=== PATIENT | female | born 1950 | race Caucasian/White ===

== ENCOUNTER 2016-04-03 10:46 | Emergency (ER) | payer MEDICARE ==
[2016-04-03] MEDS ORDERED: SODIUM CHLORIDE 0.9% 1,000 ML IV STA (11:12)
--- NOTE | 2016-04-03 11:44 | ED ---
Weakness HPI - General Chief complaint: Weakness Stated complaint: weakness Time Seen by Provider: 04/03/16 11:12 Source: patient, family, RN notes reviewed Mode of arrival: EMS Limitations: no limitations - History of Present Illness Initial comments: 65-year-old female presents emergency Department chief complaint weakness. Patient states she just feels very tired, run down. Patient states last time she felt like this that she had a low hemoglobin. Patient states that she was transfused 2 units in January. Patient states that she has completed her treatment for cancer which included chemo and radiation. Patient denies fever, chills, nausea, vomiting, chest pain or shortness of breath. Patient did have some diarrhea last week though she states it resolved. Patient denies headache or dizziness. - Related Data Home Medications Medication Instructions Recorded Confirmed Budesonide/Formoterol Fumarate 2 puff INHALATION RT-BID 10/14/15 04/03/16 [Symbicort 160-4.5 Mcg Inhaler] ALPRAZolam 0.125 - 0.25 mg PO BID PRN 11/04/15 04/03/16 Prochlorperazine [Compazine] 10 mg PO Q8H PRN 01/24/16 04/03/16 Metoprolol Tartrate [Lopressor] 50 mg PO BID 04/03/16 04/03/16 Tiotropium [place] [Spiriva 2 puff INHALATION RT-DAILY 04/03/16 04/03/16 Respimat] Previous Rx's Medication Instructions Recorded Digoxin [Lanoxin] 125 mcg PO DAILY #30 tab 11/06/15 Rivaroxaban [Xarelto] 20 mg PO DAILY #30 tab 11/06/15 Allergies Allergy/AdvReac Type Severity Reaction Status Date / Time Penicillins Allergy Unknown Verified 04/03/16 11:56 codeine AdvReac Nausea & Verified 04/03/16 11:56 Vomiting Review of Systems ROS Statement: Those systems with pertinent positive or pertinent negative responses have been documented in the HPI. ROS Other: All systems not noted in ROS Statement are negative. 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 History of Any Multi-Drug Resistant Organisms: C-DIFF, MRSA Date of last positivie culture/infection: 01/24/2016 MDRO Source:: stool Past Surgical History: Tubal Ligation Additional Past Surgical History / Comment(s): Cancerous polyps removed from throat 11/02/2015, PICC line insertion (since removed) to tx MRSA infection, mediport, colonoscopy with benign polypectomies. Past Anesthesia/Blood Transfusion Reactions: No Reported Reaction Past Psychological History: Anxiety Additional Psychological History / Comment(s): Pt resides with her spouse. She is independent. She normally drives but not lately due to illness. Smoking Status: Former smoker Past Alcohol Use History: Occasional Additional Past Alcohol Use History / Comment(s): started smoking at age 19, was smoking 1/2-1. She quit smoking 10/14/15. Past Drug Use History: None Reported - Past Family History Father Family Medical History: Cancer Additional Family Medical History / Comment(s): bladder cancer Mother Family Medical History: Congestive Heart Failure (CHF) General Exam Limitations: no limitations General appearance: alert, in no apparent distress Head exam: Present: atraumatic, normocephalic, normal inspection Eye exam: Present: normal appearance, PERRL, EOMI. Absent: scleral icterus, conjunctival injection, periorbital swelling ENT exam: Present: normal exam, mucous membranes moist Neck exam: Present: normal inspection. Absent: tenderness, meningismus, lymphadenopathy Respiratory exam: Present: normal lung sounds bilaterally. Absent: respiratory distress, wheezes, rales, rhonchi, stridor Cardiovascular Exam: Present: regular rate, normal rhythm, normal heart sounds. Absent: systolic murmur, diastolic murmur, rubs, gallop, clicks Neurological exam: Present: alert, oriented X3, CN II-XII intact Skin exam: Present: warm, dry, intact, normal color. Absent: rash Course Vital Signs 04/03/16 04/03/16 11:02 14:39 Temperature 97.0 F L Pulse Rate 90 76 Respiratory 20 16 Rate Blood Pressure 98/55 110/59 O2 Sat by Pulse 99 97 Oximetry EKG Findings - EKG Comments: EKG Findings:: EKG performed at 11:33 normal sinus rhythm with a rate of 76, RI interval 112, QRS duration 70 QT/QTC 308/346 Medical Decision Making - Medical Decision Making 65-year-old female presented for weakness and thoughts of hemoglobin being low. Patient was on 0.5. Lab work essentially unremarkable. Chest x-ray within normal limits. EKG unchanged. Patient urinalysis does not show any signs of infection. Patient has no signs of abnormality at this time. I did explained that she needs to contact her oncologist. Case discussed with Dr. Ramirez. Return parameters were discussed. - Lab Data Result diagrams: 04/03/16 12:12 04/03/16 12:12 Lab Results 04/03/16 04/03/16 04/03/16 Range/Units 12:12 12:12 12:12 WBC 5.6 (3.8-10.6) k/uL RBC 3.07 L (3.80-5.40) m/uL Hgb 9.5 L (11.4-16.0) gm/dL Hct 29.3 L (34.0-46.0) % MCV 95.4 D (80.0-100.0) fL MCH 31.0 (25.0-35.0) pg MCHC 32.4 (31.0-37.0) g/dL RDW 14.5 (11.5-15.5) % Plt Count 295 D (150-450) k/uL Neutrophils % 84 % Lymphocytes % 6 % Monocytes % 5 % Eosinophils % 3 % Basophils % 0 % Neutrophils # 4.7 (1.3-7.7) k/uL Lymphocytes # 0.4 L (1.0-4.8) k/uL Monocytes # 0.3 (0-1.0) k/uL Eosinophils # 0.2 (0-0.7) k/uL Basophils # 0.0 (0-0.2) k/uL Hypochromasia Slight PT 13.5 H (9.0-12.0) sec INR 1.4 (<1.1) APTT 29.4 (22.0-30.0) sec Sodium (137-145) mmol/L Potassium (3.5-5.1) mmol/L Chloride (98-107) mmol/L Carbon Dioxide (22-30) mmol/L Anion Gap mmol/L BUN (7-17) mg/dL Creatinine (0.52-1.04) mg/dL Est GFR (MDRD) Af Amer (>60 ml/min/1.73 sqM) Est GFR (MDRD) Non-Af (>60 ml/min/1.73 sqM) Glucose (74-99) mg/dL Calcium (8.4-10.2) mg/dL Magnesium (1.6-2.3) mg/dL Total Bilirubin (0.2-1.3) mg/dL AST (14-36) U/L ALT (9-52) U/L Alkaline Phosphatase (38-126) U/L Total Creatine Kinase (30-135) U/L CK-MB (CK-2) (0.0-2.4) ng/mL CK-MB (CK-2) Rel Index Troponin I (0.000-0.034) ng/mL Total Protein (6.3-8.2) g/dL Albumin (3.5-5.0) g/dL Urine Color Urine Appearance (Clear) Urine pH (5.0-8.0) Ur Specific [place] (1.001-1.035) Urine Protein (Negative) Urine Glucose (UA) (Negative) Urine Ketones (Negative) Urine Blood (Negative) Urine Nitrate (Negative) Urine Bilirubin (Negative) Urine Urobilinogen (<2.0) mg/dL Ur Leukocyte Esterase (Negative) Blood Type O Positive Blood Type Recheck No Antibody Screen NEGATIVE Spec Expiration Date 04/06/2016 - 231104/03/16 04/03/16 04/03/16 Range/Units 12:12 12:12 15:54 WBC (3.8-10.6) k/uL RBC (3.80-5.40) m/uL Hgb (11.4-16.0) gm/dL Hct (34.0-46.0) % MCV (80.0-100.0) fL MCH (25.0-35.0) pg MCHC (31.0-37.0) g/dL RDW (11.5-15.5) % Plt Count (150-450) k/uL Neutrophils % % Lymphocytes % % Monocytes % % Eosinophils % % Basophils % % Neutrophils # (1.3-7.7) k/uL Lymphocytes # (1.0-4.8) k/uL Monocytes # (0-1.0) k/uL Eosinophils # (0-0.7) k/uL Basophils # (0-0.2) k/uL Hypochromasia PT (9.0-12.0) sec INR (<1.1) APTT (22.0-30.0) sec Sodium 137 (137-145) mmol/L Potassium 5.2 H (3.5-5.1) mmol/L Chloride 101 (98-107) mmol/L Carbon Dioxide 25 (22-30) mmol/L Anion Gap 11 mmol/L BUN 20 H (7-17) mg/dL Creatinine 0.75 (0.52-1.04) mg/dL Est GFR (MDRD) Af Amer >60 (>60 ml/min/1.73 sqM) Est GFR (MDRD) Non-Af >60 (>60 ml/min/1.73 sqM) Glucose 109 H (74-99) mg/dL Calcium 8.8 (8.4-10.2) mg/dL Magnesium 2.1 (1.6-2.3) mg/dL Total Bilirubin 0.4 (0.2-1.3) mg/dL AST 24 (14-36) U/L ALT 34 (9-52) U/L Alkaline Phosphatase 86 (38-126) U/L Total Creatine Kinase 40 (30-135) U/L CK-MB (CK-2) 0.9 (0.0-2.4) ng/mL CK-MB (CK-2) Rel Index 2.3 Troponin I <0.012 (0.000-0.034) ng/mL Total Protein 6.1 L (6.3-8.2) g/dL Albumin 3.3 L (3.5-5.0) g/dL Urine Color Yellow Urine Appearance Clear (Clear) Urine pH 5.5 (5.0-8.0) Ur Specific [place] 1.015 (1.001-1.035) Urine Protein Trace H (Negative) Urine Glucose (UA) Negative (Negative) Urine Ketones Negative (Negative) Urine Blood Negative (Negative) Urine Nitrate Negative (Negative) Urine Bilirubin Negative (Negative) Urine Urobilinogen <2.0 (<2.0) mg/dL Ur Leukocyte Esterase Negative (Negative) Blood Type Blood Type Recheck Antibody Screen Spec Expiration Date Disposition Clinical Impression: Weakness, Fatigue Disposition: HOME SELF-CARE Condition: Stable Instructions: Weakness (ED) Additional Instructions: Please return to the Emergency Department if symptoms worsen or any other concerns. Time of Disposition: 16:44
--- NOTE | 2016-04-03 12:11 | XR ---
EXAMINATION TYPE: XR chest 2V DATE OF EXAM: 04/03/2016 12:06 PM COMPARISON: 12/15/2015 HISTORY: Shortness of breath TECHNIQUE: Frontal and lateral views of the chest are obtained. FINDINGS: Scattered senescent parenchymal changes noted. Hyperinflation compatible with COPD. Mediport catheter is appropriately placed. No evidence for infiltrate. No evidence for atelectasis. Heart size is stable. Mediastinal structures are stable and grossly unremarkable. No evidence for hilar prominence. Degenerative changes dorsal spine. IMPRESSION: 1. No evidence for acute pulmonary disease.
[2016-04-03 12:53] LABS: Basophils % (A) 0 %; CHCM 32.5; Eosinophils # (A) 0.2 k/uL (0-0.7); Eosinophils % (A) 3 %; HCT 29.3 % (34.0-46.0); HDW 3.32; HGB 9.5 gm/dL (11.4-16.0); Hypochromasia Slight; Luc # (Auto) 0.06; Luc % (Auto) 1; Lymphocytes # (A) 0.4 k/uL (1.0-4.8); Lymphocytes % (A) 6 %; MCHC 32.4 g/dL (31.0-37.0); Mean Platelet Volume 7.5; Monocytes # (A) 0.3 k/uL (0-1.0); Monocytes % (A) 5 %; Neutrophils # (A) 4.7 k/uL (1.3-7.7); Neutrophils % (A) 84 %; RBC 3.07 m/uL (3.80-5.40); RDW 14.5 % (11.5-15.5); WBC 5.6 k/uL (3.8-10.6); WBC (Perox) 5.98
[2016-04-03 12:55] LABS: MCV 95.4 fL (80.0-100.0)
[2016-04-03 13:05] LABS: Creatine Kinase 40 U/L (30-135)
[2016-04-03 13:06] LABS: ALT 34 U/L (9-52); AST 24 U/L (14-36); Alkaline Phosphatase 86 U/L (38-126); Anion Gap 11 mmol/L; Blood Urea Nitrogen 20 mg/dL (7-17); Calcium 8.8 mg/dL (8.4-10.2); Carbon Dioxide 25 mmol/L (22-30); Chloride 101 mmol/L (98-107); Glucose 109 mg/dL (74-99); Magnesium 2.1 mg/dL (1.6-2.3); Non-African American GFR(MDRD) >60 (>60 ml/min/1.73 sqM); Potassium 5.2 mmol/L (3.5-5.1); Sodium 137 mmol/L (137-145); Total Bilirubin 0.4 mg/dL (0.2-1.3); Total Protein 6.1 g/dL (6.3-8.2)
[2016-04-03 13:17] LABS: INR 1.4 (<1.1); Partial Thromboplastin Time 29.4 sec (22.0-30.0); Prothrombin Time 13.5 sec (9.0-12.0)
[2016-04-03 13:18] LABS: Creatine Kinase MB 0.9 ng/mL (0.0-2.4); Troponin I <0.012 ng/mL (0.000-0.034)
[2016-04-03 14:39] VITALS: RESP 16
[2016-04-03 16:07] LABS: Appearance,Urine Clear (Clear); Bilirubin,Urine Negative (Negative); Glucose,Urine (UA) Negative (Negative); Ketones,Urine Negative (Negative); Leukocyte Esterase,Urine Negative (Negative); Nitrite,Urine Negative (Negative); PH, Urine 5.5 (5.0-8.0); Protein,Urine Trace (Negative); Specific Gravity,Urine 1.015 (1.001-1.035); UA Billing (MACRO vs. MICRO) CHEM; Urobilinogen,Urine <2.0 mg/dL (<2.0)
[2016-04-03 17:02] VITALS: BP 129/63; PULSE 88; TEMP 97.4
== END 2016-04-03 17:02 | disposition home or self-care (01) ==
LOC: EC 10:46
DX: R53.1 Weakness (principal); R53.83 Other fatigue; C33 Malignant neoplasm of trachea; I48.91 Unspecified atrial fibrillation; J44.9 Chronic obstructive pulmonary disease, unspecified; F41.9 Anxiety disorder, unspecified; Z79.01 Long term (current) use of anticoagulants; Z79.51 Long term (current) use of inhaled steroids; Z79.899 Other long term (current) drug therapy; Z88.0 Allergy status to penicillin; Z87.891 Personal history of nicotine dependence; Z87.01 Personal history of pneumonia (recurrent)
CPT/HCPCS: 36415; 71020; 80053; 81003; 82550; 82553; 83735; 84484; 85025; 85610; 85730; 86850; 86900; 86901; 87040; 93005; 96360; 99285

== ENCOUNTER 2021-01-19 23:54 | Inpatient (IN) | payer MEDICARE ==
[2021-01-20] MEDS ORDERED: KETOROLAC 15 MG/ML 1 ML VIAL IVP STA (00:29)
--- NOTE | 2021-01-20 00:46 | ED ---
General Adult HPI - General Chief complaint: Fall Stated complaint: Fall, left hip injury Time Seen by Provider: 01/19/21 23:57 Source: patient, EMS Mode of arrival: EMS - History of Present Illness Initial comments: 70 year-old female patient presents to the emergency department today for evaluation of left hip pain after slip and fall in her kitchen. Patient states fall occurred just prior to arrival. She denies hitting her head or losing consciousness. Denies any neck or back pain. States she does take eliquis for history of afib. She is reporting significant pain to the left hip, states she cannot straighten her leg. Denies numbness or tingling. Denies injury to this hip before. She does report also wound to the left elbow, she believes her last tetanus was 10 years ago. - Related Data Home Medications Medication Instructions Recorded Confirmed Budesonide/Formoterol Fumarate 2 puff INHALATION RT-BID 10/14/15 04/03/16 [Symbicort 160-4.5 Mcg Inhaler] ALPRAZolam 0.125 - 0.25 mg PO BID PRN 11/04/15 04/03/16 Prochlorperazine [Compazine] 10 mg PO Q8H PRN 01/24/16 04/03/16 Metoprolol Tartrate [Lopressor] 50 mg PO BID 04/03/16 04/03/16 Tiotropium [place] [Spiriva 2 puff INHALATION RT-DAILY 04/03/16 04/03/16 Respimat] Previous Rx's Medication Instructions Recorded Digoxin [Lanoxin] 125 mcg PO DAILY #30 tab 11/06/15 Rivaroxaban [Xarelto] 20 mg PO DAILY #30 tab 11/06/15 Allergies Allergy/AdvReac Type Severity Reaction Status Date / Time Penicillins Allergy Unknown Verified 04/03/16 11:56 codeine AdvReac Nausea & Verified 04/03/16 11:56 Vomiting Review of Systems ROS Statement: Those systems with pertinent positive or pertinent negative responses have been documented in the HPI. ROS Other: All systems not noted in ROS Statement are negative. 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 History of Any Multi-Drug Resistant Organisms: C-DIFF, MRSA Date of last positivie culture/infection: 01/24/2016 MDRO Source:: stool Past Surgical History: Tubal Ligation Additional Past Surgical History / Comment(s): Cancerous polyps removed from throat 11/02/2015, PICC line insertion (since removed) to tx MRSA infection, mediport, colonoscopy with benign polypectomies. Past Anesthesia/Blood Transfusion Reactions: No Reported Reaction Past Psychological History: Anxiety Smoking Status: Former smoker Past Alcohol Use History: Occasional Past Drug Use History: None Reported - Past Family History Father Family Medical History: Cancer Additional Family Medical History / Comment(s): bladder cancer Mother Family Medical History: Congestive Heart Failure (CHF) General Exam General appearance: alert, in no apparent distress, other (This is a well- developed, well-nourished adult female patient in no acute distress. Vital s igns upon presentation are temperature 98.0F, pulse 75, respirations 18, blood pressure 1:30 466, pulse ox 97% on room air.) Head exam: Present: atraumatic, normocephalic, normal inspection ENT exam: Present: normal exam, normal oropharynx, mucous membranes moist Respiratory exam: Present: normal lung sounds bilaterally. Absent: respiratory distress, wheezes, rales, rhonchi, stridor Cardiovascular Exam: Present: regular rate, normal rhythm, normal heart sounds. Absent: systolic murmur, diastolic murmur, rubs, gallop, clicks GI/Abdominal exam: Present: soft, normal bowel sounds. Absent: distended, tenderness, guarding, rebound, rigid Extremities exam: Present: tenderness (Left lateral hip), normal capillary refill, other (Shortening of the left leg with external rotation). Absent: full ROM (Unable to move left hip or straighten left leg), pedal edema, joint swelling, calf tenderness Neurological exam: Present: alert, oriented X3, CN II-XII intact Psychiatric exam: Present: normal affect, normal mood Skin exam: Present: warm, dry, intact, normal color. Absent: rash Course Vital Signs 01/19/21 23:56 Temperature 98.0 F Pulse Rate 75 Respiratory 18 Rate Blood Pressure 134/66 O2 Sat by Pulse 97 Oximetry - Reevaluation(s) Reevaluation #1: 01/20/21 00:46 Delay in pain medication administration due to difficulty starting IV. EKG Findings - EKG Comments: EKG Findings:: EKG obtained at shows normal sinus rhythm with a ventricular rate of 81, WA interval 124, QRS duration 70, QT 380, QTc 441. There is evidence for ST depression in V2 and 3, aVF. Medical Decision Making - Medical Decision Making 70-year-old female patient presented to the emergency department today for evaluation of left hip pain after a fall. Physical examination did reveal external rotation and shortening of the left leg. Should have left lateral hip tenderness. Good neurovascular status. She denied hitting her head or having any other injuries. X-ray of the left hip and pelvis was obtained and did show a subcapital fracture of the left femur. We did add labs, EKG, urinalysis for presurgical screening. Dr. Herrera orthopedics was contacted and accepted admission. Medicine was consulted for surgical clearance. I did discuss endings results with the patient. She is agreeable with admission. Case discussed with my attending Dr. Gilliam. - Lab Data Result diagrams: 01/20/21 01:31 01/20/21 01:31 Lab Results 01/20/21 01/20/21 01/20/21 Range/Units 01:31 01:31 01:31 WBC 10.5 (3.8-10.6) k/uL RBC 4.27 (3.80-5.40) m/uL Hgb 13.8 (11.4-16.0) gm/dL Hct 39.8 (34.0-46.0) % MCV 93.2 (80.0-100.0) fL MCH 32.3 (25.0-35.0) pg MCHC 34.6 (31.0-37.0) g/dL RDW 13.0 (11.5-15.5) % Plt Count 288 (150-450) k/uL MPV 7.9 PT 9.4 (9.0-12.0) sec INR 0.9 (<1.2) APTT 24.0 (22.0-30.0) sec Sodium 134 L (137-145) mmol/L Potassium 4.4 (3.5-5.1) mmol/L Chloride 101 (98-107) mmol/L Carbon Dioxide 24 (22-30) mmol/L Anion Gap 9 mmol/L BUN 17 (7-17) mg/dL Creatinine 0.83 (0.52-1.04) mg/dL Est GFR (CKD-EPI)AfAm 83 (>60 ml/min/1.73 sqM) Est GFR (CKD-EPI)NonAf 72 (>60 ml/min/1.73 sqM) Glucose 108 H (74-99) mg/dL Calcium 10.0 (8.4-10.2) mg/dL Total Bilirubin 0.2 (0.2-1.3) mg/dL AST 25 (14-36) U/L ALT 18 (4-34) U/L Alkaline Phosphatase 108 (38-126) U/L Total Protein 7.2 (6.3-8.2) g/dL Albumin 4.4 (3.5-5.0) g/dL Coronavirus (PCR) (Not Detectd) 01/20/21 Range/Units 01:31 WBC (3.8-10.6) k/uL RBC (3.80-5.40) m/uL Hgb (11.4-16.0) gm/dL Hct (34.0-46.0) % MCV (80.0-100.0) fL MCH (25.0-35.0) pg MCHC (31.0-37.0) g/dL RDW (11.5-15.5) % Plt Count (150-450) k/uL MPV PT (9.0-12.0) sec INR (<1.2) APTT (22.0-30.0) sec Sodium (137-145) mmol/L Potassium (3.5-5.1) mmol/L Chloride (98-107) mmol/L Carbon Dioxide (22-30) mmol/L Anion Gap mmol/L BUN (7-17) mg/dL Creatinine (0.52-1.04) mg/dL Est GFR (CKD-EPI)AfAm (>60 ml/min/1.73 sqM) Est GFR (CKD-EPI)NonAf (>60 ml/min/1.73 sqM) Glucose (74-99) mg/dL Calcium (8.4-10.2) mg/dL Total Bilirubin (0.2-1.3) mg/dL AST (14-36) U/L ALT (4-34) U/L Alkaline Phosphatase (38-126) U/L Total Protein (6.3-8.2) g/dL Albumin (3.5-5.0) g/dL Coronavirus (PCR) Not Detected (Not Detectd) - Radiology Data Radiology results: report reviewed, image reviewed 3 views of the left hip are obtained. Report was reviewed in its entirety. Im pression by Dr. Castaneda shows acute displaced subcapital fracture left femur. One view x-ray of the chest is obtained. Report was reviewed in its entirety. Impression by Dr. Castaneda shows small nodular infiltrate right upper lobe that appears new compared to old exam. Follow-up recommended. Disposition Clinical Impression: Closed left hip fracture Disposition: ADMITTED IP TO THIS [facility] Condition: Serious Decision to Admit Reason: Admit from EC Decision Date: 01/20/21 Decision Time: 01:36
--- NOTE | 2021-01-20 01:19 | XR ---
EXAMINATION TYPE: XR Hip LT and AP Pelvis DATE OF EXAM: 01/20/2021 COMPARISON: NONE HISTORY: Fall. Pain TECHNIQUE: 3 views FINDINGS: There is impacted subcapital fracture left femur. There is comminution. There is no disloca tion. There is approximate 3 cm of displacement. The left hemipelvis is intact. IMPRESSION: Acute displaced subcapital fracture left femur.
--- NOTE | 2021-01-20 01:21 | XR ---
EXAMINATION TYPE: XR chest 1V DATE OF EXAM: 01/20/2021 COMPARISON: 04/03/2016 HISTORY: Hip fracture TECHNIQUE: Single view FINDINGS: Heart and mediastinum are normal. There is a 2 cm infiltrate in the right upper lobe. The o ther lung huggins are fairly clear. There are no hilar masses. There is no pleural effusion. Bony thor ax appears intact. IMPRESSION: There is a small nodular infiltrate right upper lobe that appears new compared to old exa m. Follow-up is recommended.
[2021-01-20] MEDS ORDERED: ONDANSETRON 4 MG/2 ML VIAL IVP STA (01:34)
[2021-01-20] MEDS ORDERED: MORPHINE SULFATE 2 MG/ML SYRINGE IVP STA (01:34)
[2021-01-20] MEDS ORDERED: NALOXONE 0.4 MG/ML 1 ML VIAL IV PRN (01:36)
[2021-01-20] MEDS ORDERED: DIPH,PERTUS(ACELL)TETVAC-LF 0.5 ML VIAL IM ONE (01:53)
[2021-01-20 01:56] LABS: HCT 39.8 % (34.0-46.0); HGB 13.8 gm/dL (11.4-16.0); MCH 32.3 pg (25.0-35.0); MCHC 34.6 g/dL (31.0-37.0); MCV 93.2 fL (80.0-100.0); Mean Platelet Volume 7.9; Platelet Count 288 k/uL (150-450); RBC 4.27 m/uL (3.80-5.40); WBC 10.5 k/uL (3.8-10.6)
[2021-01-20] MEDS: SODIUM CHLORIDE 0.9% 1,000 ML IV SCH ×2 (02:00→19:04)
[2021-01-20 02:01] LABS: INR 0.9 (<1.2); Prothrombin Time 9.4 sec (9.0-12.0)
[2021-01-20] MEDS: ONDANSETRON 4 MG/2 ML VIAL IVP PRN ×3 (02:05→18:58)
[2021-01-20 02:07] LABS: Albumin 4.4 g/dL (3.5-5.0); Potassium 4.4 mmol/L (3.5-5.1); Total Bilirubin 0.2 mg/dL (0.2-1.3); Total Protein 7.2 g/dL (6.3-8.2)
[2021-01-20] MEDS: MORPHINE SULFATE 2 MG/ML SYRINGE IV PRN ×2 (02:46→07:38)
[2021-01-20 03:04] LABS: Appearance,Urine Clear (Clear); Bilirubin,Urine Negative (Negative); Blood,Urine Negative (Negative); Color,Urine Light Yellow; Glucose,Urine (UA) Negative (Negative); Ketones,Urine Negative (Negative); Leukocyte Esterase,Urine Trace (Negative); Mucus,Urine Rare /hpf; Nitrite,Urine Negative (Negative); PH, Urine 5.5 (5.0-8.0); Protein,Urine Negative (Negative); RBC,Urine 1 /hpf (0-5); Specific Gravity,Urine 1.006 (1.001-1.035); Squamous Epithelial Cell,Urine <1 /hpf (0-4); Urobilinogen,Urine <2.0 mg/dL (<2.0); WBC,Urine <1 /hpf (0-5)
--- NOTE | 2021-01-20 08:53 | P.HPOR ---
History of Present Illness H&P Date: 01/20/21 Chief Complaint: Left subcapital hip fracture The patient is a 70 year old female with a history of COPD, throat cancer with treatment 5 years ago, previous smoker, and A. fib, that presented to the emergency department last night after sustaining a slip and fall at home around 10:30pm. She states that she had immediate left hip pain. No other injuries including hitting her head. She is normally very active and lives with her in their own home. She does not use an assistive device at home. This morning, she is complaining of left hip pain as expected. The morphine does not seem to control her pain according to the nursing staff. She was admitted to orthopedics for further evaluation and surgical intervention. 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 History of Any Multi-Drug Resistant Organisms: C-DIFF, MRSA Date of last positivie culture/infection: 01/24/2016 MDRO Source:: stool Past Surgical History: Tubal Ligation Additional Past Surgical History / Comment(s): Cancerous polyps removed from throat 11/02/2015, PICC line insertion (since removed) to tx MRSA infection, mediport, colonoscopy with benign polypectomies. Past Anesthesia/Blood Transfusion Reactions: No Reported Reaction Past Psychological History: Anxiety Additional Psychological History / Comment(s): Pt resides with her spouse. She is independent. She normally drives but not lately due to illness. Smoking Status: Former smoker Past Alcohol Use History: Occasional Additional Past Alcohol Use History / Comment(s): started smoking at age 19, was smoking 1/2-1. She quit smoking 10/14/15. Past Drug Use History: None Reported - Past Family History Father Family Medical History: Cancer Additional Family Medical History / Comment(s): bladder cancer Mother Family Medical History: Congestive Heart Failure (CHF) Medications and Allergies Home Medications Medication Instructions Recorded Confirmed Type Albuterol Sulfate [Albuterol 2 puff PO RT-Q4H PRN 01/20/21 01/20/21 History Sulfate Hfa] Apixaban [Eliquis] 5 mg PO BID 01/20/21 01/20/21 History Diltiazem HCl [Diltiazem HCl 24Hr 120 mg PO DAILY 01/20/21 01/20/21 History ER] Ezetimibe [Zetia] 10 mg PO DAILY 01/20/21 01/20/21 History Fluticasone Propion/Salmeterol 1 puff INHALATION RT-BID 01/20/21 01/20/21 History [Fluticasone-Salmeterol 250-50] Levothyroxine Sodium [Synthroid] 75 mcg PO DAILY 01/20/21 01/20/21 History Rosuvastatin Calcium 5 mg PO DAILY 01/20/21 01/20/21 History Allergies Allergy/AdvReac Type Severity Reaction Status Date / Time Penicillins Allergy Unknown Verified 01/20/21 09:32 codeine AdvReac Nausea & Verified 01/20/21 09:32 Vomiting Physical Examination The patient is a 70 year old female that is no acute distress. She is alert and oriented x3. The patient's head is normocephalic and atraumatic. Exam of the cervical spine reveals no pain upon palpation or range of motion. Exam of the bilateral upper extremities reveal no obvious deformities or pain upon range of motion. There is a small skin tear to the left posterior elbow. Exam of the right lower extremity reveals no pain upon palpation. Exam of the left lower extremity reveals a externally rotated and shortened leg. No pain upon palpation to the lateral hip. There is pain upon logrolling and any range of motion of the leg. Bilateral calves are soft and nontender. Patient has good foot and ankle motion bilaterally. Neurological and circulatory status is intact. Results - Labs Labs: Abnormal Lab Results - Last 24 Hours (Table) 01/20/21 01/20/21 Range/Units 01:31 02:40 Sodium 134 L (137-145) mmol/L Glucose 108 H (74-99) mg/dL Ur Leukocyte Esterase Trace H (Negative) Urine Mucus Rare H (None) /hpf H & H 01/20/21 Range/Units 01:31 Hgb 13.8 (11.4-16.0) gm/dL Hct 39.8 (34.0-46.0) % Coagulation 01/20/21 Range/Units : INR 0.9 (<1.2) Result Diagrams: 01/20/21 01:01/20/21:31 - Diagnostic results Hip x-ray: image reviewed (Left hip x-rays reveal a subcapital fracture. ) Assessment and Plan (1) Closed left hip fracture Current Visit: Yes Status: Acute Code(s): S72.002A - FRACTURE OF UNSP PART OF NECK OF LEFT FEMUR, INIT SNOMED Code(s): 557584996 Plan: Left subcapital hip fracture Fall at home History of COPD, throat cancer with treatment 5 years ago, previous smoker History of A. fib on Eliquis The clinical and x-ray findings were discussed with the patient. The case was discussed at length with Dr. Herrera and Dr. Juan. Her last dose of Eliquis was 7pm last night. Treatment options were discussed and surgical intervention is recommended. We discussed the surgical plan as well as the expected postoperative course. Risks and benefits were reviewed including (but not limited to) the risks of infection, bleeding, blood clots, dislocation, anesthesia-related complications and possible need for additional surgery. Questions were invited and answered. The patient expressed understanding and wishes to proceed with surgery. The patient will be kept on bedrest. Continue PRN pain management. She may eat today and she will be NPO at midnight tonight. She will be scheduled for a left direct anterior total hip arthroplasty tomorrow afternoon with Dr Juan. We will await pre-op clearance from internal medicine.
[2021-01-20] MEDS: HYDROcodone/APAP 5-325MG 1 EACH TAB PO PRN (10:05)
[2021-01-20] MEDS ORDERED: ALBUTEROL NEBULIZED 2.5 MG/3 ML INHALATION PRN (10:54)
[2021-01-20] MEDS: LEVOTHYROXINE 75 MCG TAB PO SCH (11:26)
[2021-01-20] MEDS: IPRATROPIUM-ALBUTEROL 3 ML NEB INHALATION SCH ×3 (11:32→21:52)
[2021-01-20] MEDS: DILTIAZEM CD 120 MG CAP.ER.24H PO SCH (11:34)
[2021-01-20] MEDS: EZETIMIBE 10 MG TAB PO SCH (11:34)
[2021-01-20] MEDS: ATORVASTATIN 10 MG TAB PO SCH (11:34)
[2021-01-20] MEDS: HYDROmorphone 1 MG/ML 1 ML SYRINGE IVP PRN (11:41)
--- NOTE | 2021-01-20 11:41 | P.CONS ---
History of Present Illness - Reason for Consult Consult date: 01/20/21 pre-op evaluation Requesting physician: Doris Herrera - Chief Complaint fall and hip pain - History of Present Illness 70-year-old female with a past medical history of prior throat cancer, right-sided pulmonary nodule, dyslipidemia, and hypothyroidism who presented with complaints of left hip pain after fall. Slipped on the kitchen floor yesterday and had immediate pain and inability to move her leg. No syncope, did not hit her head. No recent chest pain, light headedness, dizziness, or shortness of breath. No recent illness nausea, vomiting, diarrhea, constipation, or cough. She typically is independent in all ADLs and she does not use any assistive de vices. She is very active and swims and walks often. She states she is aware that she has a pulmonary nodule and she gets it followed once yearly with her primary care physician. Pertinent positives and negatives as discussed in HPI, a complete review of systems was performed and all other systems are negative. General: non toxic, no distress, appears at stated age Derm: warm, dry Head: atraumatic, normocephalic, symmetric Eyes: EOMI, no lid lag, anicteric sclera, pupils equal round reactive to light ENT: Nose and ears atraumatic, no thrush, no pharyngeal erythema Neck: No thyromegaly, no cervical lymphadenopathy, trachea midline, supple Mouth: no lip lesion, mucus membranes moist Cardiovascular: S1S2 reg, no murmur, positive posterior tibial pulse bilateral, no edema, capillary refill less than 2 seconds Lungs: clear to ascultation bilateral, no ronchi, no rales, no wheeze, no accessory muscle use Abdominal: soft, nontender to palpation, no guarding, no appreciable organomegaly, normal bowel sounds Ext: no gross muscle atrophy, muscle strength muscle strength 5 out of 5 in upper extremities, lower extremity strength deferred secondary to fracture, no contractures Neuro: CN II-XI grossly intact, light touch intact all 4 extremities, finger to nose within normal limits, Psych: Alert, oriented, appropriate affect 70-year-old female with a left subcapital hip fracture -Risk stratification: NSQIP - below average risk for all indicators including , serious complication, and all complication. Risk calculator reviewed with patient and . Patient can proceed to surgery without any additional testing warranted. Patient is currently medically optimized for surgery. Do recommend breathing treatments and incentive spirometry preoperatively to decrease likelihood of COPD flare. Discussed with patient. - Hold Eliquis. P. A fib -Hold Eliquis preoperatively -Continue with Cardizem Dyslipidemia -Resume home medications Hypothyroidism -Resume home medications Pulmonary nodule -Known. Patient is following with her PCP. COPD without exacerbation -Scheduled DuoNeb's and when necessary bronchodilators -Pulmonary hygiene Thank you for allowing us to participate in the care of this pleasant patient. Do not hesitate to contact us with questions. Someone can be reached from the [facility] hospitalist group all hours of the day at [phone] or via [employer]. Past Medical History Past Medical History: Atrial Fibrillation, Cancer, Chest Pain / Angina, COPD, Hyperlipidemia, Pneumonia Additional Past Medical History / Comment(s): Tracheal CANCER diagnosed 10/2015- radiation and chemo at [facility] last time chemo received was 2 weeks ago, dysphagia, hoarseness, bronchitis, hemorrhoids. History of Any Multi-Drug Resistant Organisms: C-DIFF, MRSA Year Discovered:: 01/24/2016 MDRO Source:: stool Past Surgical History: Tubal Ligation Additional Past Surgical History / Comment(s): Cancerous polyps removed from throat 11/02/2015, PICC line insertion (since removed) to tx MRSA infection, mediport, colonoscopy with benign polypectomies, sinus surgery Past Anesthesia/Blood Transfusion Reactions: No Reported Reaction Past Psychological History: Anxiety Additional Psychological History / Comment(s): Pt resides with her spouse. She is independent. She normally drives but not lately due to illness. Smoking Status: Former smoker Past Alcohol Use History: Occasional Additional Past Alcohol Use History / Comment(s): started smoking at age 19, was smoking 1/2-1. She quit smoking 10/14/15. Past Drug Use History: None Reported Additional History: No cane or walker prior to surgery. independent in all ADLs - Past Family History Father Family Medical History: Cancer Additional Family Medical History / Comment(s): bladder cancer Mother Family Medical History: Congestive Heart Failure (CHF) Medications and Allergies Home Medications Medication Instructions Recorded Confirmed Type Albuterol Sulfate [Albuterol 2 puff PO RT-Q4H PRN 01/20/21 01/20/21 History Sulfate Hfa] Apixaban [Eliquis] 5 mg PO BID 01/20/21 01/20/21 History Diltiazem HCl [Diltiazem HCl 24Hr 120 mg PO DAILY 01/20/21 01/20/21 History ER] Ezetimibe [Zetia] 10 mg PO DAILY 01/20/21 01/20/21 History Fluticasone Propion/Salmeterol 1 puff INHALATION RT-BID 01/20/21 01/20/21 History [Fluticasone-Salmeterol 250-50] Levothyroxine Sodium [Synthroid] 75 mcg PO DAILY 01/20/21 01/20/21 History Rosuvastatin Calcium 5 mg PO DAILY 01/20/21 01/20/21 History Allergies Allergy/AdvReac Type Severity Reaction Status Date / Time Penicillins Allergy Unknown Verified 01/20/21 09:32 codeine AdvReac Nausea & Verified 01/20/21 09:32 Vomiting Physical Exam Osteopathic Statement: *. No significant issues noted on an osteopathic structural exam other than those noted in the History and Physical/Consult. Vitals: Vital Signs Temp Pulse Pulse Resp BP BP Pulse Ox 01/20/21 07:21 98.2 F 89 17 118/63 90 L 01/20/21 04:28 98.1 F 79 17 137/75 95 01/20/21 02:49 77 127/61 98 01/20/21 02:04 87 16 133/79 95 01/19/21 23:56 98.0 F 75 18 134/66 97 Intake and Output 01/19/21 01/20/21 01/20/21 22:59 06:59 14:59 Intake Total 225 Output Total 600 100 Balance -375 -100 Intake: Intake, IV Titration 225 Amount Sodium Chloride 0.9% 1, 225 000 ml @ 75 mls/hr IV . [id number] Rx#:[id number] Output: Urine 600 100 Other: Voiding Method Indwelling Catheter # Voids 0 Weight 48.988 kg Results CBC & Chem 7: 01/20/21 01:31 01/20/21 01:31 Labs: Abnormal Lab Results - Last 24 Hours (Table) 01/20/21 01/20/21 Range/Units 01:31 02:40 Sodium 134 L (137-145) mmol/L Glucose 108 H (74-99) mg/dL Ur Leukocyte Esterase Trace H (Negative) Urine Mucus Rare H (None) /hpf
[2021-01-20] MEDS ORDERED: PROCHLORPERAZINE INJ 10 MG/2 ML VIAL IVP PRN (13:00)
[2021-01-20] MEDS: HYDROmorphone 0.5 MG/0.5 ML SYRINGE IVP PRN ×2 (18:57→22:27)
[2021-01-21] MEDS: HYDROmorphone 1 MG/ML 1 ML SYRINGE IVP PRN ×3 (00:36→06:51)
[2021-01-21] MEDS: SODIUM CHLORIDE 0.9% 1,000 ML IV SCH ×2 (06:24→18:27)
[2021-01-21] MEDS: LEVOTHYROXINE 75 MCG TAB PO SCH (07:46)
[2021-01-21] MEDS: DILTIAZEM CD 120 MG CAP.ER.24H PO SCH (07:46)
[2021-01-21] MEDS: IPRATROPIUM-ALBUTEROL 3 ML NEB INHALATION SCH ×4 (07:49→20:26)
[2021-01-21] MEDS: ONDANSETRON 4 MG/2 ML VIAL IVP PRN (08:49)
[2021-01-21] MEDS ORDERED: TRANEXAMIC ACID 1,000 MG in SODIUM CHLORIDE 0.9% 100 ML IVPB ONE (10:45)
[2021-01-21] MEDS ORDERED: IV FLUID CONTINUATION 1,000 ML IV ONE (11:14)
[2021-01-21] MEDS ORDERED: fentaNYL (PF) 50 MCG/ML 2 ML AMP IV ONE (11:36)
[2021-01-21] MEDS ORDERED: ONDANSETRON 4 MG/2 ML VIAL IVP ONE (11:38)
[2021-01-21] MEDS ORDERED: MIDAZOLAM 2 MG/2 ML VIAL IV ONE (11:38)
[2021-01-21] MEDS ORDERED: MIDAZOLAM 2 MG/2 ML VIAL ONE (12:26)
[2021-01-21] MEDS ORDERED: PROPOFOL 10 MG/ML 20 ML VIAL IV ONE (12:26)
[2021-01-21] MEDS ORDERED: NEOSTIGMINE 1 MG/ML 10 ML VIAL ONE (12:26)
[2021-01-21] MEDS ORDERED: PHENYLEPHRINE-0.9% NACL SYG 1,000 MCG/10 ML SYRINGE ONE (12:26)
[2021-01-21] MEDS ORDERED: TRANEXAMIC ACID 1,000 MG/10 ML VIAL ONE (12:26)
[2021-01-21] MEDS ORDERED: SODIUM CHLORIDE 0.9% 100 ML BAG ONE (12:26)
[2021-01-21] MEDS ORDERED: GLYCOPYRROLATE 0.2 MG/ML 2 ML VIAL ONE (12:26)
[2021-01-21] MEDS ORDERED: fentaNYL (PF) 50 MCG/ML 2 ML AMP ONE (12:26)
[2021-01-21] MEDS ORDERED: ePHEDrine 50 MG/ML 1 ML AMP ONE (12:26)
[2021-01-21] MEDS ORDERED: ROCURONIUM 10 MG/ML (5 ML VIAL) IV ONE (12:26)
[2021-01-21] MEDS ORDERED: LACTATED RINGERS 1,000 ML IV ONE ×2 (12:45→15:09)
--- NOTE | 2021-01-21 13:14 | P.PN ---
<Osman Jasmine - Last Filed: 01/21/21 13:02> Subjective Progress Note Date: 01/21/21 Hospital Course: 70-year-old female with a past medical history of prior throat cancer, right-sided pulmonary nodule, dyslipidemia, and hypothyroidism who presented to the ER on 01/20/21 with complaints of left hip pain after fall. Patient was reportedly in her kitchen when she slipped and fell on the kitchen floor landing on her left hip resulting in immediate pain and inability to move left leg. Patient is on blood thinners but denied hitting her head or having any loss of consciousness. Patient states she fell directly on her left hip and denied having any other injuries or complaints. In the emergency department patient underwent x-ray left hip which revealed acute displaced subcapital fracture of her left femur. An EKG was completed revealing normal sinus rhythm at 81 bpm with T-wave inversion in inferior and lateral leads of II, III, aVF, V4, V5, and V6. Labs revealed mild hyponatremia with sodium of 134 otherwise CBC, CMP, coags, and troponin showing no significant abnormalities. Urinalysis also negative for blood or infection. Covid 19 PCR negative. Patient is admitted under orthopedic surgery team and scheduled to undergo left hip hemiarthroplasty later today. We have been consulted to provide continued medical management throughout patient's hospitalization. Physical examination: Patient seen and fully evaluated at the bedside this morning. She reports pain is controlled as long as she does not move. Patient did have mild nausea status post administration of pain medication and RN medicating patient for such. Patient denies having any other complaints including headache, lightheadedness, dizziness, chest pain, palpitations, shortness of breath, abdominal pain, vomiting, or experiencing any difficulties with her changes in urinary or bowel function. Sensation remains equal and intact to bilateral lower extremities. General: non toxic, no distress, appears at stated age Derm: warm, dry Head: atraumatic, normocephalic, symmetric Eyes: EOMI, no lid lag, anicteric sclera, pupils equal round reactive to light ENT: Nose and ears atraumatic, no thrush, no pharyngeal erythema Neck: No thyromegaly, no cervical lymphadenopathy, trachea midline, supple Mouth: no lip lesion, mucus membranes moist Cardiovascular: S1S2 reg, no murmur, positive posterior tibial pulse bilateral, no edema, capillary refill less than 2 seconds Lungs: clear to ascultation bilateral, no ronchi, no rales, no wheeze, no accessory muscle use Abdominal: soft, nontender to palpation, no guarding, no appreciable organomegaly, normal bowel sounds Ext: no gross muscle atrophy, muscle strength muscle strength 5 out of 5 in upper extremities, lower extremity strength deferred secondary to fracture, no contractures Neuro: CN II-XI grossly intact, light touch intact all 4 extremities, finger to nose within normal limits, Psych: Alert, oriented, appropriate affect Assessment and Plan of Care: Left subcapital hip fracture. Management per primary admitting orthopedic surgery team. Hold Eliquis, may resume once cleared by orthopedic surgery. Patient scheduled to undergo left hip hemiarthroplasty later today. Pain management, DVT prophylaxis, weightbearing, PT/OT per primary admitting orthopedic surgery team. Risk stratification: NSQIP - below average risk for all indicators including , serious complication, and all complication. Risk calculator reviewed with patient and . Patient can proceed to surgery without any additional testing warranted. Patient is currently medically optimized for surgery. Do recommend breathing treatments and incentive spirometry preoperatively to decrease likelihood of COPD flare. Discussed with patient. - Hold Eliquis. Paroxysmal A fib -Hold Eliquis preoperatively may resume once cleared by orthopedic surgery team -Continue with Cardizem Dyslipidemia -Resume home medication regimen with atorvastatin Hypothyroidism -Resume home medications Pulmonary nodule -Known to patient. Patient is following with her PCP. COPD without exacerbation -Scheduled DuoNeb's and when necessary bronchodilators -Pulmonary hygiene -Encourage incentive spirometry 10-15x hourly while awake. Thank you for allowing us to participate in the care of this pleasant patient. Do not hesitate to contact us with questions. Someone can be reached from the [facility] hospitalist group all hours of the day at [phone] or via perfect serve. Objective - Vital Signs Vital signs: Vital Signs Temp 99.0 F 01/21/21 07:00 Pulse 80 01/21/21 07:59 Resp 18 01/21/21 07:00 BP 101/57 01/21/21 07:00 Pulse Ox 96 01/21/21 07:00 Intake & Output 01/20/21 01/21/21 01/21/21 18:59 06:59 18:59 Intake Total 200 Output Total 100 500 Balance -100 -300 Intake: Intake, IV Titration 200 Amount Sodium Chloride 0.9% 1, 200 000 ml @ 75 mls/hr IV . [id number] [facility] Rx#:[id number] Output: Urine 100 500 Other: Voiding Method Indwelling Catheter # Voids 1 - Labs CBC & Chem 7: 01/20/21 01:31 01/20/21 01:31 <AmberPetty A - Last Filed: 01/21/21 20:39> Subjective Osman Jasmine NP rendered care for this patient independently, reviewed the findings and plan as documented in the note above. I did not physically speak with or examine the patient on this date. Objective - Vital Signs Vital signs: Vital Signs Temp 97.7 F 01/21/21 17:15 Pulse 88 01/21/21 20:26 Resp 16 01/21/21 17:15 BP 101/59 01/21/21 19:17 Pulse Ox 95 01/21/21 19:17 Intake & Output 01/21/21 01/21/21 01/22/21 06:59 18:59 06:59 Intake Total 200 451 Output Total 500 400 Balance -300 51 Weight 48.988 kg Intake: IV 451 Intake, IV Titration 200 Amount Sodium Chloride 0.9% 1, 200 000 ml @ 75 mls/hr IV . [id number] [facility] Rx#:[id number] Output: Urine 500 250 Estimated Blood Loss 150 - Labs CBC & Chem 7: 01/21/21 18:28 01/20/21 01:31 Labs: Abnormal Lab Results - Last 24 Hours (Table) 01/21/21 Range/Units 18:28 RBC 3.40 L (3.80-5.40) m/uL Hgb 11.1 L (11.4-16.0) gm/dL Hct 33.2 L (34.0-46.0) % Neutrophils # 8.5 H (1.3-7.7) k/uL Lymphocytes # 0.6 L (1.0-4.8) k/uL
[2021-01-21] MEDS: ROPIVACAINE/EPI/CLONIDINE/KET 50 ML SYRINGE MISCELLANE PRN ×2 (13:45→15:01)
[2021-01-21] MEDS ORDERED: EPINEPHrine 2 MG in SODIUM CHLORIDE 0.9% 200 ML IV ONE (14:50)
[2021-01-21] MEDS ORDERED: hydrOXYzine pamoate 25 MG CAP PO PRN (15:47)
--- NOTE | 2021-01-21 15:49 | XR ---
Fluoroscopy INDICATION: Pain FINDINGS: Fluoroscopy time: 52.9 seconds. Images obtained: 8. IMPRESSIONS: 1. Documentation of fluoroscopy.
--- NOTE | 2021-01-21 15:50 | FL ---
Fluoroscopy INDICATION: Pain FINDINGS: Fluoroscopy time: 53.4 seconds. Images obtained: 0. IMPRESSIONS: 1. Documentation of fluoroscopy.
--- NOTE | 2021-01-21 15:58 | P.OP ---
Date of Procedure: 01/21/21 Preoperative Diagnosis: 1. Left displaced femoral neck fracture 2. COPD, former smoker 3. History of esophageal cancer, in remission Postoperative Diagnosis: Same Procedure(s) Performed: Left direct anterior total hip arthroplasty Implants: 1. Zeyad Trident 2 48 mm cup 2. [place] accolade C size 4 femoral stem 3. [place] MDM liner, 38 mm 4. Zeyad 22.2 mm, standard femoral head (inner diameter) 5. Zeyad 38 mm outer diameter dual mobility had Anesthesia: CHANTALE Surgeon: Rigo Juan Tare Man #1: Delmar Valdivia Estimated Blood Loss (ml): 150 IV fluids (ml): 1,200 Urine output (ml): 200 Pathology: none sent Condition: stable Disposition: PACU Indications for Procedure: The patient is a very pleasant 70-year-old female with several, well controlled medical problems including COPD, esophageal cancer in remission, and a history of atrial fibrillation who sustained a ground-level fall resulting in a displaced left femoral neck fracture. She was admitted under the care of my partner Dr. Herrera who then asked me to get involved as she was out of town. I met with the patient preoperatively to discuss her x-rays and treatment options. Overall the patient state of health is good despite some history of medical issues. She is currently living at home and is very active. She swims several times a week and enjoys doing yard work. She ambulates independently outside of the home. She denies antecedent hip pain. We discussed arthroplasty for treatment of displaced femoral neck fractures. I discussed both hemiarthroplasty, and total hip arthroplasty. Due to the patient's relatively good state of health and activity level I think she would be a better candidate for a total hip arthroplasty. The patient understood and agreed. Custom potential risks and complications of a total hip arthroplasty for a femoral neck fracture including but certainly not limited to risk of anesthesia, superficial infection, periprosthetic joint infection, intraoperative fracture, postoperative fracture, dislocation, leg length discrepancy, damage to local blood vessels or nerves, inability to regain preinjury level of function, dissatisfaction with surgery, DVT, PE, other medical complications, need for further surgery, and possibly loss of life or limb. The patient voiced her understanding of this. She also understands the inherent difficulties in pe rforming a total hip arthroplasty for a femoral neck fracture including inability to ambulate, soft bone, periprosthetic fracture, leg length discrepancy, and dislocation all of which are higher risk in the femoral neck fracture setting. She provided her verbal and written consent to go forward with surgery. Operative Findings: Arthritic changes were noted in the acetabulum Description of Procedure: The patient was identified in preoperative holding and the correct left leg was marked with my initials. I reviewed the consent form with the patient and her . The patient was then brought back to the operating room by anesthesia. She was given a general anesthetic, preoperative antibiotics, and tranexamic acid while on the gurney. Boots for the Carol table were placed. The patient was then carefully transferred onto the Carol table. A perineal post was placed and the level was positioned level to this. The arms were carefully padded and draped out to the side. The boots were secured to the spars of the Carol table. Nonsterile draping was applied. Fluoroscopy was brought in to take preoperative images. The left leg was then prepped and draped in the standard sterile fashion. Prior to starting surgery timeout was performed identifying the correct patient, operative extremity, and procedure. I began by making a standard longitudinal incision for a direct anterior approach to the hip. Dissection was carried down carefully through subcutaneous tissue with electrocautery. The fascia over the tensor muscle was incised longitudinally in line with the skin incision and just lateral to the ASIS. A blunt tipped cobra was placed over the superior femoral neck. The fascia on the undersurface of the tensor was incised and the circumflex vessels were controlled with bipolar sealant. A second Cobra retractor was placed inferior to the femoral neck. I then carefully elevated the rectus and iliocapsularis off of the anterior capsule. I carefully placed a blunt-tipped Thomas over the anterior rim of the acetabulum. The capsule was then incised. The subcapital femoral neck fracture was immediately visualized and there was a hematoma within the capsule. A superior and inferior capsular flap were raised and excised. The neck cut was made with a sagittal saw 1 cm above the lesser trochanter. The napkin ring fragment was carefully removed with a [place]. The head was then removed with a corkscrew, handed off to the back table, and sized to a 45 mm. I then circumferentially exposed the acetabulum. The acetabular cartilage appeared arthritic. The labrum and pulled on our were removed. I then carefully reamed sequentially up to a 47 mm reamer which got down to healthy- appearing bleeding cancellous bone. The elizondo felt intact. I then gently impacted a 48 mm cup which had an excellent bite. This was augmented with 2 screws for added stability. The position of the cup including anteversion and inclination were verified with fluoroscopy on a to AP of the pelvis. A inability liner was then gently impacted into place. Attention was then turned to the proximal femur. Retractors were placed in the superolateral capsule was incised using electrocautery. The femur was carefully elevated. I then open the canal with a box osteotome and blunt-tipped canal sound, lateralized, and broached up to a size 4 broach which felt stable. A trial head and neck were placed. Retractors were removed and the hip was carefully reduced. It was brought through range of motion on the Carol table and felt stable. Fluoroscopy was brought in. The broach appeared to be in except to position and not in varus. We had given 2-3 mm in accordance with our preoperative planning had slightly increased the offset. The hip was then carefully dislocated area and the trial broach and implants were removed. The wound was thoroughly irrigated. The canal was prepared with pulsatile lavage and epinephrine-soaked gauze. A cement restrictor was placed distally. Cement was then pressurized into the canal after notifying anesthesia. A size 4 collared stem was then carefully impacted taking care to match the patient's robinson version. Excess cement was removed and the stem was held in place until the cement had completely cured. The final dual mobility head was gently impacted to engage the Wisdom taper. The wound was thoroughly irrigated and the hip was carefully reduced. Range of motion was performed using the Carol table and the hip felt stable. Final fluoroscopic images were taken including AP and externally rotated view of the hip to verify position of the stem. An AP pelvis was then taken with a metallic adelia to create bi-ischial line. We have given the patient 2-3 mm of length c ompared to the contralateral side in accordance with our preoperative plan. The wound was then thoroughly irrigated. A deep drain was placed. The wound was infiltrated with local anesthetic. The wound was sequentially closed in layers and sterile dressings were applied. The patient was carefully taken off the Carol table and transferred onto luis eduardo seo. Once the boots were taken off I assessed leg lengths. We had given 2-3 mm of length compared to the contralateral side in accordance with our preoperative plan. The patient was then extubated and brought to recovery having tolerated the procedure well. Delmar Valdivia PA-C was required as a skilled social work assistant throughout the procedure due to the complexity of the surgery. Plan: The patient can weight-bear as tolerated on her left leg. We will remove her drain postoperative day #1 as long as the output is less than 100 mL's. We'll resume our quest postoperative day #1 for DVT prophylaxis. Follow-up in 10-14 days for wound check and a low set AP pelvis. Due to her medical history we will treat her with 2 weeks of doxycycline to lower the risk of PJI in accordance with recent orthopedic surgery literature supporting short-term oral antibiotics and high risk primary total joint arthroplasty.
[2021-01-21] MEDS: EZETIMIBE 10 MG TAB PO SCH (16:29)
[2021-01-21] MEDS: ATORVASTATIN 10 MG TAB PO SCH (16:29)
[2021-01-21] MEDS: LACTATED RINGERS 1,000 ML IV SCH (18:33)
[2021-01-21 19:04] LABS: Basophils % (A) 0 %; Eosinophils # (A) 0.1 k/uL (0-0.7); Eosinophils % (A) 1 %; HCT 33.2 % (34.0-46.0); HGB 11.1 gm/dL (11.4-16.0); Lymphocytes # (A) 0.6 k/uL (1.0-4.8); Lymphocytes % (A) 6 %; MCH 32.7 pg (25.0-35.0); MCHC 33.5 g/dL (31.0-37.0); MCV 97.8 fL (80.0-100.0); Monocytes # (A) 0.6 k/uL (0-1.0); Monocytes % (A) 6 %; Neutrophils # (A) 8.5 k/uL (1.3-7.7); Neutrophils % (A) 86 %; Platelet Count 216 k/uL (150-450); RDW 13.1 % (11.5-15.5); WBC 9.9 k/uL (3.8-10.6)
[2021-01-21] MEDS: SENNOSIDES-DOCUSATE SODIUM 1 EACH TAB PO SCH (20:46)
[2021-01-22] MEDS: LACTATED RINGERS 1,000 ML IV SCH ×3 (02:08→22:37)
[2021-01-22] MEDS: traMADol 50 MG TAB PO PRN ×4 (03:23→15:28)
[2021-01-22] MEDS: LEVOTHYROXINE 75 MCG TAB PO SCH (05:38)
[2021-01-22] MEDS: IPRATROPIUM-ALBUTEROL 3 ML NEB INHALATION SCH ×4 (08:01→20:10)
[2021-01-22] MEDS: EZETIMIBE 10 MG TAB PO SCH (08:18)
[2021-01-22] MEDS: DILTIAZEM CD 120 MG CAP.ER.24H PO SCH (08:18)
[2021-01-22] MEDS: ATORVASTATIN 10 MG TAB PO SCH (08:18)
--- NOTE | 2021-01-22 09:01 | P.PN ---
Subjective Progress Note Date: 01/22/21 Some pain in left hip, but otherwise pain controlled. Mild SOB from getting up and going to bathroom. No acute events overnight. Objective - Vital Signs Vital signs: Vital Signs Temp 99.0 F 01/22/21 06:42 Pulse 93 01/22/21 06:42 Resp 16 01/22/21 02:00 BP 114/57 01/22/21 06:42 Pulse Ox 98 01/22/21 06:42 Intake & Output 01/21/21 01/22/21 01/22/21 18:59 06:59 18:59 Intake Total 451 480 Output Total 400 580 Balance 51 -100 Weight 48.988 kg Intake: IV 451 Oral 480 Output: Drainage 80 Left Hip 80 Urine 250 500 Estimated Blood Loss 150 Other: Voiding Method Indwelling Catheter Indwelling Catheter - Exam NAD, AAO3 LEFT LE: Dressing c/d/i. Drain pulled. Thigh soft. Motor and sensory function intact SPN, DPN, tibial nerves. Palpable pulses in the foot. No pain with PROM hip. - Labs CBC & Chem 7: 01/21/21 18:28 01/20/21 01:31 Labs: Abnormal Lab Results - Last 24 Hours (Table) 01/21/21 Range/Units 18:28 RBC 3.40 L (3.80-5.40) m/uL Hgb 11.1 L (11.4-16.0) gm/dL Hct 33.2 L (34.0-46.0) % Neutrophils # 8.5 H (1.3-7.7) k/uL Lymphocytes # 0.6 L (1.0-4.8) k/uL Assessment and Plan Plan: POD#1 Left DA KATIUSKA for displaced femoral neck fracture: 1. WBAT Left LE 2. Drain pulled this morning 3. DVT prophylaxis - can resume eliquis today, dosing per IM 4. Bone health - 25 hydroxy vitamin D pending, will start Ca 1500 mg TID and vitamin D3 2000 units daily 5. Post op antibiotics 6. PT/OT 7. Dispo planning in process
[2021-01-22] MEDS: SODIUM CHLORIDE 0.9% 1,000 ML IV SCH ×2 (10:22→20:01)
--- NOTE | 2021-01-22 10:50 | P.PN ---
Subjective Progress Note Date: 01/22/21 Hospital Course: 70-year-old female with a past medical history of prior throat cancer, right-sided pulmonary nodule, dyslipidemia, and hypothyroidism who presented to the ER on 01/20/21 with complaints of left hip pain after fall. Patient was reportedly in her kitchen when she slipped and fell on the kitchen floor landing on her left hip resulting in immediate pain and inability to move left leg. Patient is on blood thinners but denied hitting her head or having any loss of consciousness. Patient states she fell directly on her left hip and denied having any other injuries or complaints. In the emergency department patient underwent x-ray left hip which revealed acute displaced subcapital fracture of her left femur. An EKG was completed revealing normal sinus rhythm at 81 bpm with T-wave inversion in inferior and lateral leads of II, III, aVF, V4, V5, and V6. Labs revealed mild hyponatremia with sodium of 134 otherwise CBC, CMP, coag s, and troponin showing no significant abnormalities. Urinalysis also negative for blood or infection. Covid 19 PCR negative. Patient is admitted under orthopedic surgery team and scheduled to undergo left hip hemiarthroplasty later today. We have been consulted to provide continued medical management throughout patient's hospitalization. Physical examination: Patient seen and fully evaluated at the bedside this morning. She is post- operative day one and reports pain is managed and states that she has even been up to bathroom with minimal difficulties. Ortho cleared pt to resume Eliquis at this time. Pt denies any further episodes of nausea or vomiting. She is tolerated oral intake and reports normal urinary function. Movement and sensation intact to LLE. Postsurgical dressing, clean dry and intact with no signs of bleeding or drainage. Patient denies having any other complaints including headache, lightheadedness, dizziness, chest pain, palpitations, shortness of breath, abdominal pain, or experiencing any numbness/tingling/weakness in her extremities. Pt does report a mild sore/dry throat and orders placed for cepacol lozenges. Labs reviewed, patient with mild expected postoperative anemia with hemoglobin of 11.1 from previous 13.8. Vital signs stable with the exception of low-grade elevation in temp of 99.1, we will continue to monitor closely. General: non toxic, no distress, appears at stated age Derm: warm, dry Head: atraumatic, normocephalic, symmetric Eyes: EOMI, no lid lag, anicteric sclera, pupils equal round reactive to light ENT: Nose and ears atraumatic, no thrush, no pharyngeal erythema Neck: No thyromegaly, no cervical lymphadenopathy, trachea midline, supple Mouth: no lip lesion, mucus membranes moist Cardiovascular: S1S2 reg, no murmur, positive posterior tibial pulse bilateral, no edema, capillary refill less than 2 seconds Lungs: clear to ascultation bilateral, no ronchi, no rales, no wheeze, no accessory muscle use Abdominal: soft, nontender to palpation, no guarding, no appreciable organom egaly, normal bowel sounds Ext: no gross muscle atrophy, Movement and sensation intact in all extremities. Neuro: CN II-XI grossly intact, light touch intact all 4 extremities, finger to nose within normal limits, Psych: Alert, oriented, appropriate affect Assessment and Plan of Care: Status post Left direct anterior total hip arthroplasty secondary to Left subcapital hip fracture Management per primary admitting orthopedic surgery team. Post op day 1. Eliquis resumed. Pain management, DVT prophylaxis, weightbearing, PT/OT per primary admitting orthopedic surgery team. Encourage incentive spirometry 10-15x hours while awake. Paroxysmal A fib -Resume Eliquis and Continue with Cardizem Dyslipidemia -Resume home medication regimen with atorvastatin Hypothyroidism -Resume home medications Pulmonary nodule -Known to patient. Patient is following with her PCP. COPD without exacerbation -Scheduled DuoNeb's and when necessary bronchodilators -Pulmonary hygiene -Encourage incentive spirometry 10-15x hourly while awake. Thank you for allowing us to participate in the care of this pleasant patient. Do not hesitate to contact us with questions. Someone can be reached from the [facility] hospitalist group all hours of the day at [phone] or via perfect serve. Objective - Vital Signs Vital signs: Vital Signs Temp 99.0 F 01/22/21 06:42 Pulse 93 01/22/21 06:42 Resp 16 01/22/21 02:00 BP 114/57 01/22/21 06:42 Pulse Ox 98 01/22/21 06:42 Intake & Output 01/21/21 01/22/21 01/22/21 18:59 06:59 18:59 Intake Total 451 480 Output Total 400 580 Balance 51 -100 Weight 48.988 kg Intake: IV 451 Oral 480 Output: Drainage 80 Left Hip 80 Urine 250 500 Estimated Blood Loss 150 Other: Voiding Method Indwelling Catheter Indwelling Catheter - Labs CBC & Chem 7: 01/21/21 18:28 01/20/21 01:31 Labs: Abnormal Lab Results - Last 24 Hours (Table) 01/21/21 Range/Units 18:28 RBC 3.40 L (3.80-5.40) m/uL Hgb 11.1 L (11.4-16.0) gm/dL Hct 33.2 L (34.0-46.0) % Neutrophils # 8.5 H (1.3-7.7) k/uL Lymphocytes # 0.6 L (1.0-4.8) k/uL
[2021-01-22] MEDS: CHOLECALCIFEROL 25 MCG (1000 IU) TABLET PO SCH (11:58)
[2021-01-22] MEDS: APIXABAN 5 MG TAB PO SCH ×2 (11:58→20:00)
[2021-01-22] MEDS: CALCIUM CARBONATE 500 MG CHEWABLE PO SCH ×2 (15:29→22:29)
[2021-01-22] MEDS: BENZOCAINE/MENTHOL LOZENG 1 EACH LOZENGE MUCOUS MEM PRN (15:34)
[2021-01-22] MEDS: SENNOSIDES-DOCUSATE SODIUM 1 EACH TAB PO SCH (20:00)
[2021-01-22] MEDS: SYMBICORT 80-4.5 MCG INHALER INHALATION SCH (20:11)
[2021-01-22] MEDS: HYDROcodone/APAP 5-325MG 1 EACH TAB PO PRN (22:29)
[2021-01-23] MEDS ORDERED: DILTIAZEM DRIP BOLUS FROM BAG 1 MG SOLN IV STA ×2 (01:56→04:35)
[2021-01-23] MEDS: DILTIAZEM 125 MG in SODIUM CHLORIDE 0.9% 100 ML IV SCH ×2 (03:21→15:38)
[2021-01-23] MEDS ORDERED: DILTIAZEM DRIP BOLUS FROM BAG 1 MG SOLN IV ONE (05:35)
[2021-01-23] MEDS: LEVOTHYROXINE 75 MCG TAB PO SCH (06:23)
[2021-01-23] MEDS: METOPROLOL TARTRATE 25 MG TAB PO SCH ×2 (07:15→20:14)
[2021-01-23] MEDS: IPRATROPIUM-ALBUTEROL 3 ML NEB INHALATION SCH ×5 (07:47→19:35)
[2021-01-23] MEDS: SYMBICORT 80-4.5 MCG INHALER INHALATION SCH ×3 (07:47→19:35)
[2021-01-23] MEDS: ATORVASTATIN 10 MG TAB PO SCH (08:32)
[2021-01-23] MEDS: CHOLECALCIFEROL 25 MCG (1000 IU) TABLET PO SCH (08:32)
[2021-01-23] MEDS: CALCIUM CARBONATE 500 MG CHEWABLE PO SCH ×3 (08:32→20:14)
[2021-01-23] MEDS: APIXABAN 5 MG TAB PO SCH ×2 (08:32→20:14)
[2021-01-23] MEDS: LACTATED RINGERS 1,000 ML IV SCH ×2 (08:33→16:58)
[2021-01-23] MEDS: SODIUM CHLORIDE 0.9% 1,000 ML IV SCH (09:23)
[2021-01-23] MEDS: EZETIMIBE 10 MG TAB PO SCH (09:23)
--- NOTE | 2021-01-23 09:40 | P.PN ---
Subjective Progress Note Date: 01/23/21 Hospital Course: 70-year-old female with a past medical history of paroxysmal atrial fibrillation on anticoagulation with Eliquis, prior throat cancer, right-sided pulmonary nodule, dyslipidemia, and hypothyroidism who presented to the ER on 01/20/21 with complaints of left hip pain after fall. Patient was reportedly in her kitchen when she slipped and fell on the kitchen floor landing on her left hip resulting in immediate pain and inability to move left leg. Patient is on blood thinners but denied hitting her head or having any loss of consciousness. Patient states she fell directly on her left hip and denied having any other injuries or complaints. In the emergency department patient underwent x-ray left hip which revealed acute displaced subcapital fracture of her left femur. An EKG was completed revealing normal sinus rhythm at 81 bpm with T-wave inversion in inferior and lateral leads of II, III, aVF, V4, V5, and V6. Labs revealed mild hyponatremia with sodium of 134 otherwise CBC, CMP, coags, and troponin showing no significant abnormalities. Urinalysis also negative for blood or infection. Covid 19 PCR negative. Patient is admitted under orthopedic surgery team and scheduled to undergo left hip hemiarthroplasty later today. We have been consulted to provide continued medical management throughout patient's hospitalization. Physical examination: Patient seen and fully evaluated at the bedside this morning. She is post- operative day 2. Patient reports having a rough night. Patient went into A. fib with RVR requiring Cardizem boluses followed by infusion and transferred to stepdown unit. Patient reports she is also having a lot of pain because she has been afraid to take any pain medication since being transferred to the stepdown unit for A. fib RVR. Patient educated on importance of pain control and instructed that allowing pain to get out of control can also cause an elevated heart rate. She remains on Cardizem infusion at 10 mg per hour at this time, sh e remains in A. fib RVR with ventricular rate 110s to 120s. Patient has also developed a coarse raspy cough. Order placed for chest x-ray and echocardiogram to be completed. Previous echocardiogram completed on 11/04/15 revealed a normal EF between 55 and 60% with no significant valvular abnormalities. Patient's oxygen needs also increased to 4 L O2 via nasal cannula with SpO2 of 93-95%. Awaiting morning labs to result. Patient denies having any other further needs or complaints including headache, lightheadedness, dizziness, chest pain, palpitations, shortness of breath, abdominal pain, nausea, vomiting, or experiencing any numbness/swelling/weakness/tingling in her extremities. We wi ll continue to monitor closely. General: non toxic, no distress, appears at stated age Derm: warm, dry. Bruising left lateral leg and hip. Dressing to left hip clean, dry, and intact with no signs of bleeding or drainage. Head: atraumatic, normocephalic, symmetric Eyes: EOMI, no lid lag, anicteric sclera, pupils equal round reactive to light ENT: Nose and ears atraumatic, no thrush, no pharyngeal erythema Neck: No thyromegaly, no cervical lymphadenopathy, trachea midline, supple Mouth: no lip lesion, mucus membranes moist Cardiovascular: Irregularly irregular rhythm with tachycardic rate. No murmur, positive posterior tibial pulses bilaterally, no edema, capillary refill less than 2 seconds Lungs: slightly diminished at bases, no ronchi, no rales, no wheeze, no accessory muscle use. Course Annabella raspy, nonproductive cough noted during assessment. Abdominal: soft, nontender to palpation, no guarding, no appreciable organomegaly, normal bowel sounds Ext: No gross muscle atrophy, Movement and sensation intact in all extremities. Neuro: CN II-XI grossly intact, light touch intact all 4 extremities, finger to nose within normal limits, Psych: Alert, oriented, appropriate affect Assessment and Plan of Care: Atrial fibrillation with RVR Continue Cardizem infusion, titrate to maintain a controlled ventricular rate Cardiology consulted, appreciate further recommendations. Repeat echocardiogram, previous echocardiogram completed in 2016 revealed normal EF between 55 and 60% with no significant valvular abnormalities. Continue anticoagulation with Eliquis. Continued telemetry monitoring. TSH with reflex free T4. Status post Left direct anterior total hip arthroplasty on 01/21/21 secondary to Left subcapital hip fracture Management per primary admitting orthopedic surgery team. Post op day 2. Eliquis resumed 01/22/21 Pain management, DVT prophylaxis, weightbearing, PT/OT per primary admitting orthopedic surgery team. Encourage incentive spirometry 10-15x hours while awake. Dyslipidemia -Resume home medication regimen with atorvastatin Hypothyroidism -Resume home medication regimen with levothyroxine. Pulmonary nodule -Known to patient. Patient is following with her PCP. COPD without exacerbation -Scheduled DuoNeb's and when necessary bronchodilators -Pulmonary hygiene -Encourage incentive spirometry 10-15x hourly while awake. Thank you for allowing us to participate in the care of this pleasant patient. Do not hesitate to contact us with questions. Someone can be reached from the [facility] hospitalist group all hours of the day at [phone] or via perfect serve. Objective - Vital Signs Vital signs: Vital Signs Temp 98.7 F 01/23/21 03:15 Pulse 144 H 01/23/21 03:15 Resp 18 01/23/21 03:15 BP 103/66 01/23/21 07:02 Pulse Ox 94 L 01/23/21 03:15 Intake & Output 01/22/21 01/23/21 01/23/21 18:59 06:59 18:59 Intake Total 120 11.333 Output Total 750 Balance 120 -738.667 Intake: Intake, IV Titration 11.333 Amount Diltiazem 125 mg In 11.333 Sodium Chloride 0.9% 100 ml @ 10 MG/HR 10 mls/hr IV .[id number] [facility] Rx#: [id number] Oral 120 0 Output: Urine 750 Other: Voiding Method Indwelling Catheter Indwelling Catheter # Voids 1 - Labs CBC & Chem 7: 01/21/21 18:28 01/20/21 01:31
--- NOTE | 2021-01-23 09:50 | XR ---
EXAMINATION TYPE: XR chest 1V portable DATE OF EXAM: 01/23/2021 COMPARISON: Chest x-ray 01/20/2021, CT 11/21/2015 HISTORY: Cough TECHNIQUE: Single frontal view of the chest is obtained. FINDINGS: There is no focal air space opacity, pleural effusion, or pneumothorax seen. The cardiac silhouette size is within normal limits. Prominent lung volumes are present. There are overlying lead s and artifacts. The osseous structures are intact. IMPRESSION: No acute process. There is underlying emphysema. The previously identified abnormality o n chest x-ray may be obscured by overlying lead. Follow-up PA and lateral chest x-ray when stable.
[2021-01-23] MEDS: HYDROcodone/APAP 5-325MG 1 EACH TAB PO PRN ×2 (10:27→20:18)
[2021-01-23] MEDS: AMIODARONE 200 MG TAB PO SCH ×2 (11:02→20:14)
[2021-01-23 11:12] LABS: HCT 26.3 % (37.2-46.3); HGB 8.6 g/dL (12.0-15.0); MCH 32.1 pg (27.0-32.0); MCHC 32.7 g/dL (32.0-37.0); MCV 98.1 fL (80.0-97.0); Mean Platelet Volume 10.8 fL (9.5-12.2); Platelet Count 192 X 10*3/uL (140-440); RBC 2.68 X 10*6/uL (4.10-5.20); RDW 13.2 % (11.5-14.5); WBC 7.43 X 10*3/uL (4.50-10.00)
[2021-01-23 11:57] LABS: African American GFR (CKD) 106.3 (60.0-200.0); Anion Gap 9.5 mmol/L (4.00-12.00); Calcium 8.4 mg/dL (8.7-10.3); Carbon Dioxide 23.5 mmol/L (21.6-31.8); Magnesium 1.8 mg/dL (1.5-2.4); Non-African American GFR(CKD) 91.7 (60.0-200.0); Potassium 4.4 mmol/L (3.5-5.5)
--- NOTE | 2021-01-23 12:36 | P.PN ---
Subjective Progress Note Date: 01/23/21 Principal diagnosis: Status post Left DA KATIUSKA for displaced femoral neck fracture Patient is seen at bedside this morning. She is POD#2 Left DA KATIUSKA for displaced femoral neck fracture. She has pain at the surgical site as expected with mobilization the pain is controlled at rest. She denies any new complaints. She went into A. fib with RVR late last evening but she was asymptomatic at the time. She was transferred to cardiology unit where she is been managed accordingly. She denies numbness, tingling or calf pain. Review of systems is negative for fever, chills, chest pain, shortness of breath or other Objective - Vital Signs Vital signs: Vital Signs Temp 98.7 F 01/23/21 08:10 Pulse 116 H 01/23/21 08:10 Resp 16 01/23/21 08:10 BP 89/56 01/23/21 08:10 Pulse Ox 94 L 01/23/21 08:10 Intake & Output 01/22/21 01/23/21 01/23/21 18:59 06:59 18:59 Intake Total 120 11.333 Output Total 750 Balance 120 -738.667 Intake: Intake, IV Titration 11.333 Amount Diltiazem 125 mg In 11.333 Sodium Chloride 0.9% 100 ml @ 10 MG/HR 10 mls/hr IV .[id number] [facility] Rx#: [id number] Oral 120 0 Output: Urine 750 Other: Voiding Method Indwelling Catheter Indwelling Catheter # Voids 1 - Exam Inspection reveals a benign surgical wound. Foam bandage in place. There is no active bleeding or drainage. Neurovascular status is intact throughout the lower extremity with motor and sensation fully intact. Calf is soft and nontender. 2+ dorsalis pedis pulse and less than 2 second cap refill is present. - Constitutional General appearance: Present: no acute distress - Labs CBC & Chem 7: 01/23/21 07:50 01/23/21 07:50 Labs: Abnormal Lab Results - Last 24 Hours (Table) 01/23/21 01/23/21 Range/Units 07:50 07:50 RBC 2.68 L (4.10-5.20) X 10*6/uL Hgb 8.6 L (12.0-15.0) g/dL Hct 26.3 L (37.2-46.3) % MCV 98.1 H (80.0-97.0) fL MCH 32.1 H (27.0-32.0) pg Glucose 125 H (70-110) mg/dL Calcium 8.4 L (8.7-10.3) mg/dL Assessment and Plan (1) Closed left hip fracture Narrative/Plan: She will continue with routine postop orthopedic protocol including pain m anagement, wound care, PT, DVT prophylaxis and medical management. Expect that she should build to be discharged in the next 1-2 days pending cardiology and internal medicine recommendations. Current Visit: Yes Status: Acute Priority: Medium Code(s): S72.002A - FRACTURE OF UNSP PART OF NECK OF LEFT FEMUR, INIT SNOMED Code(s): 374162872 Time with Patient: Less than 30
[2021-01-23 12:56] LABS: Basophils # (A) 0.02 X 10*3/uL (0.00-0.10); Basophils % (A) 0.3 %; Eosinophils # (A) 0.11 X 10*3/uL (0.04-0.35); Eosinophils % (A) 1.5 %; Lymphocytes # (A) 0.53 X 10*3/uL (0.90-5.00); Lymphocytes % (A) 7.1 %; Monocytes # (A) 0.66 X 10*3/uL (0.20-1.00); Monocytes % (A) 8.9 %; Neutrophils # (A) 6.08 X 10*3/uL (1.80-7.70); Neutrophils % (A) 81.8 %
--- NOTE | 2021-01-23 12:56 | CONS ---
CONSULTATION HISTORY: Mrs. Martinez is a 70-year-old female with a history of atrial fibrillation who presented after a fall and fractured hip. After surgery, she went in atrial fibrillation. She has history of paroxysmal atrial fibrillation in the past and has been anticoagulated in that regard. She does not feel the palpitations. She is unaware of the arrhythmia. She had a preserved systolic function in the past and her echocardiogram in 2016 revealed a preserved left ventricular size and systolic function. She is followed by Dr. Maya in [place]. She has no history of congestive heart failure or obstructive coronary disease. She denies any knowledge of the palpitation. She has no dizziness. No syncope. No clear PND nor orthopnea. She is mildly dyspneic after her surgery. She continues to be at this time on Eliquis 5 mg twice a day, Lipitor 10 mg daily, IV Cardizem and was initiated on metoprolol tartrate 25 mg twice a day. REVIEW OF SYSTEMS: Respiratory system she has mild dyspnea on exertion. No recent wheezing or cough. GI system no recent GI bleeding. No peptic ulcer disease. system no dysuria or hematuria. Nervous system no history of stroke or seizure. PAST MEDICAL HISTORY: Past history is remarkable for history of throat cancer, history of hypothyroidism. PHYSICAL EXAMINATION: She is a 70-year-old female, alert, oriented, in no apparent distress. Heart rate running in the 120s to 130 with a heart rate in the 80s with the blood pressure in the low 100s, high 90s. HEAD: Normocephalic. Eyes sclerae anicteric. NECK: Good upstroke no bruit no change distention. LUNGS: Clear to auscultation. HEART: Irregular regular S1, S2. No S3 with systolic murmur at the base. No diastolic murmur no rub. ABDOMEN: Soft nontender. EXTREMITIES: Dressing on the left hip. LAB DATA: Her troponin was less than 0.012. Her initial EKG revealed a sinus mechanism with nonspecific T-wave inversion in the inferolateral leads. In reviewing her prior EKG in 2017, she had flat T-waves in the same distribution and she had episode of atrial fibrillation noted in 2016. Her chest x-ray on presentation showed a small nodule and infiltrate in the right upper lobe. IMPRESSION: 1. Status post fall and fracture of left hip, status post surgery done by Dr. Juan. 2. Atrial fibrillation paroxysmal, patient back in atrial fibrillation with episode of rapid ventricular response. She is unaware of the arrhythmia. 3. History of hypothyroidism. 4. History of hyperlipidemia. RECOMMENDATIONS: From the cardiac standpoint, I will add amiodarone to her regimen to see if we can restore sinus mechanism. Continue on her IV Cardizem and beta tequila at this time. We will obtain echocardiogram with Doppler and depending on her progress, further recommendations will be made. She will follow with her primary painter assistant after discharge. Thank you for this consult. We will follow with you. NEREIDA / JOE: [id number] /
[2021-01-23] MEDS ORDERED: METOPROLOL TARTRATE 25 MG TAB PO STA (14:25)
[2021-01-23] MEDS: BENZONATATE 100 MG CAP PO PRN (15:49)
[2021-01-23] MEDS: SENNOSIDES-DOCUSATE SODIUM 1 EACH TAB PO SCH (20:14)
[2021-01-23] MEDS ORDERED: SODIUM CHLORIDE 0.9% 1,000 ML IV ONE ×2 (23:26→23:50)
[2021-01-24] MEDS: SODIUM CHLORIDE 0.9% 1,000 ML IV SCH ×2 (00:12→10:22)
[2021-01-24] MEDS: BENZONATATE 100 MG CAP PO PRN ×2 (00:59→22:02)
[2021-01-24] MEDS: LACTATED RINGERS 1,000 ML IV SCH ×2 (04:10→10:22)
[2021-01-24] MEDS: LEVOTHYROXINE 75 MCG TAB PO SCH (05:51)
[2021-01-24] MEDS: SYMBICORT 80-4.5 MCG INHALER INHALATION SCH ×2 (07:30→19:25)
[2021-01-24] MEDS: IPRATROPIUM-ALBUTEROL 3 ML NEB INHALATION SCH ×4 (07:30→19:25)
[2021-01-24 07:32] LABS: HCT 27.2 % (34.0-46.0); MCH 32.7 pg (25.0-35.0); MCHC 33.5 g/dL (31.0-37.0); MCV 97.7 fL (80.0-100.0); Mean Platelet Volume 8.3; Platelet Count 231 k/uL (150-450); RBC 2.78 m/uL (3.80-5.40); RDW 13.5 % (11.5-15.5); WBC 8.5 k/uL (3.8-10.6)
[2021-01-24 07:33] LABS: HGB 9.1 gm/dL (11.4-16.0)
[2021-01-24 07:41] LABS: African American GFR (CKD) >90 (>60 ml/min/1.73 sqM); Anion Gap 5 mmol/L; Blood Urea Nitrogen 13 mg/dL (7-17); Calcium 8.4 mg/dL (8.4-10.2); Carbon Dioxide 20 mmol/L (22-30); Chloride 108 mmol/L (98-107); Glucose 105 mg/dL (74-99); Non-African American GFR(CKD) >90 (>60 ml/min/1.73 sqM); Potassium 4.9 mmol/L (3.5-5.1); Sodium 133 mmol/L (137-145)
[2021-01-24] MEDS: ATORVASTATIN 10 MG TAB PO SCH (08:26)
[2021-01-24] MEDS: CHOLECALCIFEROL 25 MCG (1000 IU) TABLET PO SCH (08:26)
[2021-01-24] MEDS: CALCIUM CARBONATE 500 MG CHEWABLE PO SCH ×3 (08:26→21:24)
[2021-01-24] MEDS: EZETIMIBE 10 MG TAB PO SCH (08:26)
[2021-01-24] MEDS: AMIODARONE 200 MG TAB PO SCH ×2 (08:26→21:24)
[2021-01-24] MEDS: APIXABAN 5 MG TAB PO SCH ×2 (08:26→21:24)
[2021-01-24] MEDS: METOPROLOL TARTRATE 25 MG TAB PO SCH ×2 (08:26→21:24)
[2021-01-24] MEDS: HYDROcodone/APAP 5-325MG 1 EACH TAB PO PRN (08:32)
--- NOTE | 2021-01-24 11:57 | P.PN ---
Subjective Progress Note Date: 01/24/21 This patient is a 70-year-old female who is status-post DA total left hip arthroplasty for displaced left femoral neck fracture on 01/21/21. Today is post-operative day #3. Patient is seen and examined bedside. She is experiencing mild pain in the left hip. Patient has been coughing, she denies shortness of breath at this time. Patient went into atrial fibrillation on Sunday evening. Cardiology was consulted and echo has been ordered, amiodarone was added. Leon cath was placed yesterday, as patient has not urinated since surgery. Patient also has not had a bowel movement. Patient is tolerating her diet ok. She denies chest pain, shortness of breath, nausea, vomiting, fevers, chills. Vital signs stable. Objective - Vital Signs Vital signs: Vital Signs Temp 98.4 F 01/24/21 08:00 Pulse 90 01/24/21 08:00 Resp 18 01/24/21 08:00 BP 134/70 01/24/21 08:00 Pulse Ox 92 L 01/24/21 08:00 Intake & Output 01/23/21 01/24/21 01/24/21 18:59 06:59 18:59 Intake Total 900.167 118.667 240 Output Total 450 100 Balance 450.167 18.667 240 Weight 50 kg Intake: Intake, IV Titration 700.167 118.667 Amount Diltiazem 125 mg In 100.167 118.667 Sodium Chloride 0.9% 100 ml @ 10 MG/HR 10 mls/hr IV .[id number] [facility] Rx#: [id number] IV Fluid Continuation 1, 600 000 ml @ 0 mls/hr IV .[facility] Rx#:[id number] Oral 200 240 Output: Urine 450 100 Other: Voiding Method Indwelling Catheter Indwelling Catheter # Voids 1 - Exam On examination, patient is sitting up in bed no apparent distress. She is alert and orientated 3. On inspection of the left hip, there is a clean, dry, intact OptiForm dressing in place. No bleeding or drainage to the dressing. Drain has been pulled. There is mild swelling of the thigh. The thigh is soft and compressible. Motor and sensory function is intact of the left lower extremity. Dorsalis pedis pulse +2. Left lower extremity is warm and well perfused. Calves are soft and nontender to palpation bilaterally. - Labs CBC & Chem 7: 01/24/21 06:15 01/24/21 06:15 Labs: Abnormal Lab Results - Last 24 Hours (Table) 01/23/21 01/23/21 01/24/21 Range/Units 07:50 07:50 06:15 RBC 2.68 L (4.10-5.20) X 10*6/uL Hgb 8.6 L (12.0-15.0) g/dL Hct 26.3 L (37.2-46.3) % MCV 98.1 H (80.0-97.0) fL MCH 32.1 H (27.0-32.0) pg Lymphocytes # 0.53 L (0.90-5.00) X 10*3/uL Sodium 133 L (137-145) mmol/L Chloride 108 H (98-107) mmol/L Carbon Dioxide 20 L (22-30) mmol/L Glucose 125 H 105 H (70-110) mg/dL Calcium 8.4 L (8.7-10.3) mg/dL 01/24/21 Range/Units 06:15 RBC 2.78 L (4.10-5.20) X 10*6/uL Hgb 9.1 L D (12.0-15.0) g/dL Hct 27.2 L (37.2-46.3) % MCV (80.0-97.0) fL MCH (27.0-32.0) pg Lymphocytes # (0.90-5.00) X 10*3/uL Sodium (137-145) mmol/L Chloride (98-107) mmol/L Carbon Dioxide (22-30) mmol/L Glucose (70-110) mg/dL Calcium (8.7-10.3) mg/dL Assessment and Plan Assessment: Status-post left DA KATIUSKA for displaced femoral neck fracture on 01/21/21. Post- operative day #3. Plan: - Weight bear as tolerated on operative leg. Up with assistance, up with a walker. - Physical therapy for gait and balance training. - Pain management as needed. - Resume Eliquis for DVT prophylaxis. - Post-op antibiotics with doxycycline 100mg BID for 2 weeks. - Keep optifoam dressing intact. - Medical management per internal medicine and cardiology. - Anticipate discharge home with home health care when medically cleared.
--- NOTE | 2021-01-24 12:34 | P.PN ---
Subjective Progress Note Date: 01/24/21 Principal diagnosis: a-fib Patient feeling better. She has shortness of breath at times but not always. No chest pain. No heart racing. She has been feeling weak as well. No fevers or chills. Objective - Vital Signs Vital signs: Vital Signs Temp 97.7 F 01/24/21 12:00 Pulse 71 01/24/21 12:00 Resp 18 01/24/21 12:00 BP 89/53 01/24/21 12:00 Pulse Ox 98 01/24/21 12:00 Intake & Output 01/23/21 01/24/21 01/24/21 18:59 06:59 18:59 Intake Total 900.167 118.667 240 Output Total 450 100 Balance 450.167 18.667 240 Weight 50 kg Intake: Intake, IV Titration 700.167 118.667 Amount Diltiazem 125 mg In 100.167 118.667 Sodium Chloride 0.9% 100 ml @ 10 MG/HR 10 mls/hr IV .[id number] [facility] Rx#: [id number] IV Fluid Continuation 1, 600 000 ml @ 0 mls/hr IV .Purer Skin -[facility] Rx#:[id number] Oral 200 240 Output: Urine 450 100 Other: Voiding Method Indwelling Catheter Indwelling Catheter # Voids 1 - Exam Constitutional: No acute distress, conversant, pleasant Eyes:Anicteric sclerae, moist conjunctiva, no lid-lag, PERRLA, ENMT: Oropharynx clear, no erythema, exudates Neck: Supple, FROM, no masses, or JVD, No carotid bruits, No thyromegaly Lungs: Clear to auscultation, Clear to percussion, Normal respiratory effort, no accessory muscle use Cardiovascular: Irregular, normal rate, No murmurs, gallops, or rubs, No peripheral edema Abdominal: Soft, Nontender, no guarding, rebound or rigidity, Normoactive bowel sounds, No hepatomegaly, No splenomegaly, No palpable mass Skin: Normal temperature, tone, texture, turgor, no induration, No subcutaneous nodules, No rash, lesions, No ulcers Extremities: No digital cyanosis, No clubbing, Pedal pulses intact and symmetrical, Radial pulses intact and symmetrical, No calf tenderness Psychiatric: Alert and oriented to person, place and time, appropriate affect, intact judgement Neuro: Muscles Strength 5/5 in all 4 extremities, Sensation to light touch grossly present throughout, Cranial nerves II-XII grossly intact, no focal sensory deficits - Labs CBC & Chem 7: 01/24/21 06:15 01/24/21 06:15 Labs: Abnormal Lab Results - Last 24 Hours (Table) 01/23/21 01/24/21 01/24/21 Range/Units 07:50 06:15 06:15 RBC 2.78 L (3.80-5.40) m/uL Hgb 9.1 L D (11.4-16.0) gm/dL Hct 27.2 L (34.0-46.0) % Lymphocytes # 0.53 L (0.90-5.00) X 10*3/uL Sodium 133 L (137-145) mmol/L Chloride 108 H (98-107) mmol/L Carbon Dioxide 20 L (22-30) mmol/L Glucose 105 H (74-99) mg/dL Assessment and Plan Plan: Atrial fibrillation with RVR Per cardiology, Cardizem drip and metoprolol, amiodarone added Repeat echocardiogram, previous echocardiogram completed in 2015 revealed normal EF between 55 and 60% with no significant valvular abnormalities. Continue anticoagulation with Eliquis. Continued telemetry monitoring. TSH and lytes okay Status post Left direct anterior total hip arthroplasty on 01/21/21 secondary to Left subcapital hip fracture Management per primary admitting orthopedic surgery team. Post op day 2. Eliquis resumed 01/22/21 Pain management, DVT prophylaxis, weightbearing, PT/OT per primary admitting orthopedic surgery team. Encourage incentive spirometry 10-15x hours while awake. Urinary retention -Failed attempt to remove Leon yesterday, will try again later Dyslipidemia -Resume home medication regimen with atorvastatin Hypothyroidism -Resume home medication regimen with levothyroxine. Pulmonary nodule -Known to patient. Patient is following with her PCP. COPD without exacerbation -Scheduled DuoNeb's and when necessary bronchodilators -Pulmonary hygiene -Encourage incentive spirometry 10-15x hourly while awake.
--- NOTE | 2021-01-24 14:39 | P.PN ---
Subjective Progress Note Date: 01/24/21 HISTORY OF PRESENT ILLNESS: This is a 70-year-old female who follows with a Dr. Maya in [place], [place]. Patient is admitted to the hospital secondary to left hip fracture. She un derwent surgery with orthopedics. Patient went into atrial fibrillation postoperatively. The patient does have a history of atrial fibrillation and is prescribed Eliquis on an outpatient basis. The patient was started on a Cardizem drip. She has since converted to sinus mechanism. Telemetry currently reveals sinus mechanism with a heart rate in the 60s. The patient denies chest pain or pressure. She denies shortness of breath. She denies palpitations. She denies dizziness or lightheadedness. PHYSICAL EXAM: VITAL SIGNS: Reviewed. GENERAL: Well-developed in no acute distress. NECK: Supple. No JVD or thyromegaly LUNGS: Respirations even and unlabored. Lungs essentially clear to auscultation bilaterally. HEART: Regular rate and rhythm. S1 and S2 heard. EXTREMITIES: Normal range of motion. No clubbing or cyanosis. Peripheral pulses intact. No lower extremity edema ASSESSMENT: Left hip fracture, status post surgical intervention Paroxysmal atrial fibrillation with RVR Hyperlipidemia Hypothyroidism PLAN: 2D echo ordered. Await results Discontinue IV Cardizem Continue metoprolol and amiodarone Continue anticoagulation with Eliquis Further recommendations pending patient's course Nurse practitioner note has been reviewed by physician. Signing provider agrees with the documented findings, assessment, and plan of care. Objective - Vital Signs Vital signs: Vital Signs Temp 97.7 F 01/24/21 12:00 Pulse 71 01/24/21 12:57 Resp 18 01/24/21 12:00 BP 89/53 01/24/21 12:00 Pulse Ox 98 01/24/21 12:00 Intake & Output 01/23/21 01/24/21 01/24/21 18:59 06:59 18:59 Intake Total 900.167 118.667 240 Output Total 450 100 Balance 450.167 18.667 240 Weight 50 kg Intake: Intake, IV Titration 700.167 118.667 Amount Diltiazem 125 mg In 100.167 118.667 Sodium Chloride 0.9% 100 ml @ 10 MG/HR 10 mls/hr IV .[id number] [facility] Rx#: [id number] IV Fluid Continuation 1, 600 000 ml @ 0 mls/hr IV .STK [facility] Rx#:[id number] Oral 200 240 Output: Urine 450 100 Other: Voiding Method Indwelling Catheter Indwelling Catheter # Voids 1 - Labs CBC & Chem 7: 01/24/21 06:15 01/24/21 06:15 Labs: Abnormal Lab Results - Last 24 Hours (Table) 01/24/21 01/24/21 Range/Units 06:15 06:15 RBC 2.78 L (3.80-5.40) m/uL Hgb 9.1 L D (11.4-16.0) gm/dL Hct 27.2 L (34.0-46.0) % Sodium 133 L (137-145) mmol/L Chloride 108 H (98-107) mmol/L Carbon Dioxide 20 L (22-30) mmol/L Glucose 105 H (74-99) mg/dL
[2021-01-24] MEDS: ONDANSETRON 4 MG/2 ML VIAL IVP PRN (15:01)
[2021-01-24] MEDS: DOXYCYCLINE 100 MG CAP PO SCH (17:34)
[2021-01-24] MEDS: SENNOSIDES-DOCUSATE SODIUM 1 EACH TAB PO SCH (21:24)
[2021-01-24] MEDS: BENZOCAINE/MENTHOL LOZENG 1 EACH LOZENGE MUCOUS MEM PRN (22:02)
[2021-01-25] MEDS: MELATONIN 5 MG TABLET PO SCH (00:04)
[2021-01-25] MEDS: LACTATED RINGERS 1,000 ML IV SCH (00:07)
[2021-01-25] MEDS: DOXYCYCLINE 100 MG CAP PO SCH ×2 (05:51→17:09)
[2021-01-25] MEDS: LEVOTHYROXINE 75 MCG TAB PO SCH (05:51)
[2021-01-25] MEDS: SODIUM CHLORIDE 0.9% 1,000 ML IV SCH ×2 (05:52→12:53)
[2021-01-25] MEDS: IPRATROPIUM-ALBUTEROL 3 ML NEB INHALATION SCH ×4 (08:11→19:41)
[2021-01-25] MEDS: SYMBICORT 80-4.5 MCG INHALER INHALATION SCH ×2 (08:11→19:41)
[2021-01-25] MEDS: CALCIUM CARBONATE 500 MG CHEWABLE PO SCH ×2 (09:02→17:08)
[2021-01-25] MEDS: BENZONATATE 100 MG CAP PO PRN (09:02)
[2021-01-25] MEDS: AMIODARONE 200 MG TAB PO SCH (09:02)
[2021-01-25] MEDS: CHOLECALCIFEROL 25 MCG (1000 IU) TABLET PO SCH (09:02)
[2021-01-25] MEDS: ATORVASTATIN 10 MG TAB PO SCH (09:03)
[2021-01-25] MEDS: APIXABAN 5 MG TAB PO SCH (09:03)
[2021-01-25] MEDS: EZETIMIBE 10 MG TAB PO SCH (09:03)
--- NOTE | 2021-01-25 09:03 | P.PN ---
Subjective Progress Note Date: 01/25/21 This patient is a 70-year-old female who is status-post DA total left hip arthroplasty for displaced left femoral neck fracture on 01/21/21. Today is post-operative day #4. Patient is seen and examined bedside. Patient is ambulating around her room this morning and was up to the bathroom. She did have a bowel movement this morning. Leon catheter is still in place. Patient continues to experience a cough and mild SOB. She overall is feeling well this morning. She denies chest pain, nausea, vomiting, fevers, chills. Vital signs stable. Objective - Vital Signs Vital signs: Vital Signs Temp 98.2 F 01/25/21 04:55 Pulse 96 01/25/21 08:24 Resp 18 01/25/21 04:55 BP 160/78 01/25/21 04:55 Pulse Ox 88 L 01/25/21 08:12 Intake & Output 01/24/21 01/25/21 01/25/21 18:59 06:59 18:59 Intake Total 240 Output Total 250 360 Balance -10 -360 Intake: Oral 240 Output: Urine 250 360 Other: Voiding Method Indwelling Catheter Indwelling Catheter # Voids 1 # Bowel Movements 1 - Exam On examination, patient is sitting up in bed no apparent distress. She is alert and orientated 3. On inspection of the left hip, there is a clean, dry, intact OptiForm dressing in place. No bleeding or drainage to the dressing. Drain has been pulled. There is mild swelling of the thigh. The thigh is soft and compressible. Motor and sensory function is intact of the left lower extremity. Dorsalis pedis pulse +2. Left lower extremity is warm and well perfused. Calves are soft and nontender to palpation bilaterally. - Labs CBC & Chem 7: 01/24/21 06:15 01/24/21 06:15 Assessment and Plan Assessment: Status-post left DA KATIUSKA for displaced femoral neck fracture on 01/21/21. Post- operative day #4. Plan: - Weight bear as tolerated on operative leg. Up with assistance, up with a walker. - Physical therapy for gait and balance training. - Pain management as needed. - Resume Eliquis for DVT prophylaxis. - Post-op antibiotics with doxycycline 100mg BID for 2 weeks. - Keep optifoam dressing intact. - Medical management per internal medicine and cardiology. - Anticipate discharge home with home health care when medically cleared.
[2021-01-25] MEDS: METOPROLOL TARTRATE 25 MG TAB PO SCH (09:05)
--- NOTE | 2021-01-25 10:30 | ECHOF ---
Referral Reason:afib rvr now with new coarse cough MEASUREMENTS -------- HEIGHT: 160.0 cm WEIGHT: 49.9 kg BP: 125/65 RVIDd: 2.6 cm (< 3.3) IVSd: 0.9 cm (0.6 - 1.1) LVIDd: 2.7 cm (3.9 - 5.3) LVPWd: 1.1 cm (0.6 - 1.1) IVSs: 1.6 cm LVIDs: 2.0 cm LVPWs: 1.6 cm LA Diam: 2.9 cm (2.7 - 3.8) Ao Diam: 2.8 cm (2.0 - 3.7) AV Cusp: 1.9 cm (1.5 - 2.6) MV EXCURSION: 16.399 mm (> 18.000) MV EF SLOPE: 107 mm/s (70 - 150) EPSS: 0.2 cm MV E Jayson: 0.83 m/s MV DecT: 243 ms MV A Jayson: 0.58 m/s MV E/A Ratio: 1.43 RAP: 15.00 mmHg RVSP: 38.60 mmHg FINDINGS -------- Sinus rhythm. This was a technically adequate study. The left ventricular size is normal. There is borderline concentric left ventricular hypertrophy. Overall left ventricular systolic function is normal with, an EF between 60 - 65 %. The right ventricle is normal in size. The left atrium is normal in size. The right atrium is normal in size. Interatrial and interventricular septum intact. The aortic valve is trileaflet, and appears structurally normal. No aortic stenosis or regurgitation. The mitral valve is normal. Mild tricuspid regurgitation present. There is mild pulmonary hypertension. The right ventricular systolic pressure, as measured by Doppler, is 38.60mmHg. The pulmonic valve was not well visualized. The aortic root size is normal. The inferior vena cava is dilated with poor inspiratory collapse which is consistent with estimated r ight atrial pressure of 15 mmHg. There is no pericardial effusion. CONCLUSIONS -------- 1. The left ventricular size is normal. 2. There is borderline concentric left ventricular hypertrophy. 3. Overall left ventricular systolic function is normal with, an EF between 60 - 65 %. 4. The aortic valve is trileaflet, and appears structurally normal. No aortic stenosis or regurgitati on. 5. Mild tricuspid regurgitation present. 6. There is mild pulmonary hypertension. 7. The right ventricular systolic pressure, as measured by Doppler, is 38.60mmHg. 8. The inferior vena cava is dilated with poor inspiratory collapse which is consistent with estimate d right atrial pressure of 15 mmHg. 9. There is no pericardial effusion. ENTERTAINMENT DANCER: Yin Lopez RDCS
--- NOTE | 2021-01-25 11:30 | P.PN ---
Subjective Progress Note Date: 01/25/21 Hospital Course: 70-year-old female with a past medical history of paroxysmal atrial fibrillation on anticoagulation with Eliquis, prior throat cancer, right-sided pulmonary nodule, dyslipidemia, and hypothyroidism who presented to the ER on 01/20/21 with complaints of left hip pain after fall. Patient was reportedly in her kitchen when she slipped and fell on the kitchen floor landing on her left hip resulting in immediate pain and inability to move left leg. Patient is on blood thinners but denied hitting her head or having any loss of consciousness. Patient states she fell directly on her left hip and denied having any other injuries or complaints. In the emergency department patient underwent x-ray left hip which revealed acute displaced subcapital fracture of her left femur. An EKG was completed revealing normal sinus rhythm at 81 bpm with T-wave inversion in inferior and lateral leads of II, III, aVF, V4, V5, and V6. Labs revealed mild hyponatremia with sodium of 134 otherwise CBC, CMP, coags, and troponin showing no significant abnormalities. Urinalysis also negative for blood or infection. Covid 19 PCR negative. Patient is admitted under orthopedic surgery team and scheduled to undergo left hip hemiarthroplasty 01/21/21. We were consulted to provide continued medical management throughout patient's hospitalization. during hospitalization patient went into atrial fibrillation with RVR and was transferred to stepdown unit and started on Cardizem infusion. Cardiology was consulted. Chest x-ray: Negative for acute cardiopulmonary process revealing underlying emphysema and some artifact in which they are suggesting outpatient follow up for repeat imaging to ensure resolution of artifact. Echocardiogram: EF between 60-65% with mild pulmonary hypertension. Physical examination: Patient seen and fully evaluated at the bedside this morning. She is post- operative day 4.Cardizem was discontinued on 01/24/21 and patient was started on metoprolol and amiodarone which is controlling ventricular rate between 90s and 110s. Patient reports postoperative pain is controlled. She reports continue cough and SOB with exertion. She is on 2L O2 via NC with SPO2 90%. Pt again incouraged to use incentive spirometry 10-15 times hourly while awake. Patient denies having any other further needs or complaints including headache, lightheadedness, dizziness, chest pain, palpitations, shortness of breath, abdominal pain, nausea, vomiting, or experiencing any numbness/swelling/w eakness/tingling in her extremities. We will continue to monitor closely. General: non toxic, no distress, appears at stated age Derm: warm, dry. Bruising left lateral leg and hip. Dressing to left hip clean, dry, and intact with no signs of bleeding or drainage. Head: atraumatic, normocephalic, symmetric Eyes: EOMI, no lid lag, anicteric sclera, pupils equal round reactive to light ENT: Nose and ears atraumatic, no thrush, no pharyngeal erythema Neck: No thyromegaly, no cervical lymphadenopathy, trachea midline, supple Mouth: no lip lesion, mucus membranes moist Cardiovascular: Irregularly irregular rhythm with normal rate. No murmur, positive posterior tibial pulses bilaterally, no edema, capillary refill less than 2 seconds Lungs: Clear to auscultation bilaterally with no ronchi, no rales, no wheeze, no accessory muscle use. Dry, nonproductive cough noted during assessment. Abdominal: soft, nontender to palpation, no guarding, no appreciable organomegaly, normal bowel sounds Ext: No gross muscle atrophy, Movement and sensation intact in all extremities. Neuro: CN II-XI grossly intact, light touch intact all 4 extremities, finger to nose within normal limits, Psych: Alert, oriented, appropriate affect Assessment and Plan of Care: Atrial fibrillation with RVR, Ventricular rate currently controlled Cardizem infusion discontinued 01/24/21 and patient started on metoprolol and amiodarone currently controlling ventricular rate between 90s and 110s. Cardiologyfollowing, appreciate further recommendations. Echocardiogram: EF between 60-65% with mild pulmonary hypertension. Continue anticoagulation with Eliquis. Continued telemetry monitoring. TSH normal findings at 3.360. Status post Left direct anterior total hip arthroplasty on 01/21/21 secondary to Left subcapital hip fracture Management per primary admitting orthopedic surgery team. Post op day 4. Eliquis resumed 01/22/21 Pain management, DVT prophylaxis, weightbearing, PT/OT per primary admitting orthopedic surgery team. Encourage incentive spirometry 10-15x hours while awake. Dyslipidemia -Resume home medication regimen with atorvastatin Hypothyroidism -Resume home medication regimen with levothyroxine. -TSH 3.360. Pulmonary nodule -Known to patient. Patient is following with her PCP. COPD without exacerbation -Scheduled DuoNeb's and when necessary bronchodilators -Pulmonary hygiene -Encourage incentive spirometry 10-15x hourly while awake. Thank you for allowing us to participate in the care of this pleasant patient. Do not hesitate to contact us with questions. Someone can be reached from the [facility] hospitalist group all hours of the day at [phone] or via perfect serve. Objective - Vital Signs Vital signs: Vital Signs Temp 98.2 F 01/25/21 04:55 Pulse 95 01/25/21 04:55 Resp 18 01/25/21 04:55 BP 160/78 01/25/21 04:55 Pulse Ox 95 01/25/21 04:55 Intake & Output 01/24/21 01/25/21 01/25/21 18:59 06:59 18:59 Intake Total 240 Output Total 250 360 Balance -10 -360 Intake: Oral 240 Output: Urine 250 360 Other: Voiding Method Indwelling Catheter Indwelling Catheter # Voids 1 # Bowel Movements 1 - Labs CBC & Chem 7: 01/24/21 06:15 01/24/21 06:15
--- NOTE | 2021-01-25 14:02 | P.PN ---
Subjective Progress Note Date: 01/25/21 HISTORY OF PRESENT ILLNESS: This is a 70-year-old female who follows with a Dr. Maya in [place], [place]. Patient is admitted to the hospital secondary to left hip fracture. She un derwent surgery with orthopedics. Patient went into atrial fibrillation postoperatively. The patient does have a history of atrial fibrillation and is prescribed Eliquis on an outpatient basis. The patient was started on a Cardizem drip. She has since converted to sinus mechanism. Telemetry currently reveals sinus mechanism with a heart rate in the 60s. The patient denies chest pain or pressure. She denies shortness of breath. She denies palpitations. She denies dizziness or lightheadedness. 01/25/2021 Patient examined this morning at bedside. She denies chest pain or pressure. She denies stress rest. She remains in sinus mechanism with heart rate in the 90s. Blood pressure is running on the higher side. Echocardiogram completed revealing ejection fraction 60-65%, mild tricuspid regurgitation, and mild pulmonary hypertension. PHYSICAL EXAM: VITAL SIGNS: Reviewed. GENERAL: Well-developed in no acute distress. NECK: Supple. No JVD or thyromegaly LUNGS: Respirations even and unlabored. Lungs essentially clear to auscultation bilaterally. HEART: Regular rate and rhythm. S1 and S2 heard. EXTREMITIES: Normal range of motion. No clubbing or cyanosis. Peripheral pulses intact. No lower extremity edema ASSESSMENT: Left hip fracture, status post surgical intervention Paroxysmal atrial fibrillation with RVR Hyperlipidemia Hypothyroidism PLAN: Increase metoprolol to 50 mg twice a day Continue amiodarone 400 mg twice a day for a total duration of 1 week and then decrease dosing to 200 mg twice a day Continue anticoagulation with Eliquis The patient is currently stable from a cardiac perspective She is to follow up outpatient with her primary resin filterer Nurse practitioner note has been reviewed by physician. Signing provider agrees with the documented findings, assessment, and plan of care. Objective - Vital Signs Vital signs: Vital Signs Temp 97.6 F 01/25/21 08:00 Pulse 92 01/25/21 12:00 Resp 16 01/25/21 12:00 BP 116/53 01/25/21 12:00 Pulse Ox 95 01/25/21 12:00 Intake & Output 01/24/21 01/25/21 01/25/21 18:59 06:59 18:59 Intake Total 240 120 Output Total 250 360 Balance -10 -360 120 Intake: Oral 240 120 Output: Urine 250 360 Other: Voiding Method Indwelling Catheter Indwelling Catheter Indwelling Catheter # Voids 1 1 # Bowel Movements 1 1 - Labs CBC & Chem 7: 01/24/21 06:15 01/24/21 06:15
[2021-01-25] MEDS: HYDROcodone/APAP 5-325MG 1 EACH TAB PO PRN (17:09)
[2021-01-25] MEDS ORDERED: MELATONIN 5 MG TABLET PO SCH (21:00)
[2021-01-26] MEDS: CALCIUM CARBONATE 500 MG CHEWABLE PO SCH ×3 (00:26→16:35)
[2021-01-26] MEDS: SENNOSIDES-DOCUSATE SODIUM 1 EACH TAB PO SCH (00:26)
[2021-01-26] MEDS: MELATONIN 5 MG TABLET PO SCH (00:27)
[2021-01-26] MEDS: APIXABAN 5 MG TAB PO SCH ×2 (00:27→08:37)
[2021-01-26] MEDS: METOPROLOL TARTRATE 50 MG TAB PO SCH ×2 (00:27→08:36)
[2021-01-26] MEDS: AMIODARONE 200 MG TAB PO SCH ×2 (00:28→08:36)
[2021-01-26] MEDS: BENZONATATE 100 MG CAP PO PRN ×2 (00:32→06:38)
[2021-01-26] MEDS: HYDROcodone/APAP 5-325MG 1 EACH TAB PO PRN ×2 (00:33→08:40)
[2021-01-26 05:21] VITALS: RESP 16
[2021-01-26] MEDS: SODIUM CHLORIDE 0.9% 1,000 ML IV SCH (06:14)
[2021-01-26] MEDS: LACTATED RINGERS 1,000 ML IV SCH (06:15)
[2021-01-26] MEDS: DOXYCYCLINE 100 MG CAP PO SCH ×2 (06:38→16:35)
[2021-01-26] MEDS: LEVOTHYROXINE 75 MCG TAB PO SCH (06:39)
[2021-01-26] MEDS: SYMBICORT 80-4.5 MCG INHALER INHALATION SCH (07:57)
[2021-01-26] MEDS: IPRATROPIUM-ALBUTEROL 3 ML NEB INHALATION SCH ×3 (07:57→16:18)
[2021-01-26 08:31] LABS: HCT 28.9 % (34.0-46.0); HGB 9.2 gm/dL (11.4-16.0); MCH 31.9 pg (25.0-35.0); MCHC 31.9 g/dL (31.0-37.0); MCV 100.1 fL (80.0-100.0); Mean Platelet Volume 8.4; Platelet Count 305 k/uL (150-450); RBC 2.89 m/uL (3.80-5.40); RDW 12.8 % (11.5-15.5); WBC 9.3 k/uL (3.8-10.6)
[2021-01-26] MEDS: CHOLECALCIFEROL 25 MCG (1000 IU) TABLET PO SCH (08:36)
[2021-01-26] MEDS: ATORVASTATIN 10 MG TAB PO SCH (08:37)
[2021-01-26] MEDS: EZETIMIBE 10 MG TAB PO SCH (08:37)
[2021-01-26 08:44] VITALS: TEMP 97.6
[2021-01-26 08:53] LABS: African American GFR (CKD) >90 (>60 ml/min/1.73 sqM); Anion Gap 7 mmol/L; Blood Urea Nitrogen 15 mg/dL (7-17); Calcium 8.7 mg/dL (8.4-10.2); Carbon Dioxide 20 mmol/L (22-30); Chloride 107 mmol/L (98-107); Glucose 92 mg/dL (74-99); Magnesium 1.9 mg/dL (1.6-2.3); Non-African American GFR(CKD) >90 (>60 ml/min/1.73 sqM); Potassium 4.6 mmol/L (3.5-5.1); Sodium 134 mmol/L (137-145)
[2021-01-26] MEDS ORDERED: TAMSULOSIN 0.4 MG CAP.ER.24H PO SCH (11:30)
--- NOTE | 2021-01-26 13:44 | P.PN ---
Subjective Progress Note Date: 01/26/21 HISTORY OF PRESENT ILLNESS: This is a 70-year-old female who follows with a Dr. Maya in [place], [place]. Patient is admitted to the hospital secondary to left hip fracture. She un derwent surgery with orthopedics. Patient went into atrial fibrillation postoperatively. The patient does have a history of atrial fibrillation and is prescribed Eliquis on an outpatient basis. The patient was started on a Cardizem drip. She has since converted to sinus mechanism. Telemetry currently reveals sinus mechanism with a heart rate in the 60s. The patient denies chest pain or pressure. She denies shortness of breath. She denies palpitations. She denies dizziness or lightheadedness. 01/25/2021 Patient examined this morning at bedside. She denies chest pain or pressure. She denies stress rest. She remains in sinus mechanism with heart rate in the 90s. Blood pressure is running on the higher side. Echocardiogram completed revealing ejection fraction 60-65%, mild tricuspid regurgitation, and mild pulmonary hypertension. 01/26/2021 Patient examined this morning at the bedside. She denies chest pain or pressure. She denies shortness of breath. She remains in sinus mechanism. Patient is still having difficulty with urinary retention. PHYSICAL EXAM: VITAL SIGNS: Reviewed. GENERAL: Well-developed in no acute distress. NECK: Supple. No JVD or thyromegaly LUNGS: Respirations even and unlabored. Lungs essentially clear to auscultation bilaterally. HEART: Regular rate and rhythm. S1 and S2 heard. EXTREMITIES: Normal range of motion. No clubbing or cyanosis. Peripheral pulses intact. No lower extremity edema ASSESSMENT: Left hip fracture, status post surgical intervention Paroxysmal atrial fibrillation with RVR Hyperlipidemia Hypothyroidism Urinary retention PLAN: Tinea metoprolol to 50 mg twice a day Continue amiodarone 400 mg twice a day for a total duration of 1 week and then decrease dosing to 200 mg twice a day Continue anticoagulation with Eliquis The patient is currently stable from a cardiac perspective She is to follow up outpatient with her primary food court team member We will sign off. Please reconsult if needed. Nurse practitioner note has been reviewed by physician. Signing provider agrees with the documented findings, assessment, and plan of care. Objective - Vital Signs Vital signs: Vital Signs Temp 97.6 F 01/26/21 08:00 Pulse 83 01/26/21 11:49 Resp 16 01/26/21 11:49 BP 130/67 01/26/21 11:49 Pulse Ox 91 L 01/26/21 11:49 Intake & Output 01/25/21 01/26/21 01/26/21 18:59 06:59 18:59 Intake Total 520 240 Output Total 500 275 Balance 20 -275 240 Weight 57.2 kg Intake: Oral 520 240 Output: Urine 500 275 Straight 275 Post Void Residual 0 Other: Voiding Method Indwelling Catheter Toilet Toilet # Voids 1 # Bowel Movements 1 - Labs CBC & Chem 7: 01/26/21 06:48 01/26/21 06:48 Labs: Abnormal Lab Results - Last 24 Hours (Table) 01/26/21 01/26/21 Range/Units 06:48 06:48 RBC 2.89 L (3.80-5.40) m/uL Hgb 9.2 L (11.4-16.0) gm/dL Hct 28.9 L (34.0-46.0) % MCV 100.1 H (80.0-100.0) fL Sodium 134 L (137-145) mmol/L Carbon Dioxide 20 L (22-30) mmol/L
--- NOTE | 2021-01-26 13:49 | P.PN ---
<Osman Jasmine - Last Filed: 01/26/21 13:41> Subjective Progress Note Date: 01/26/21 Hospital Course: 70-year-old female with a past medical history of paroxysmal atrial fibrillation on anticoagulation with Eliquis, prior throat cancer, right-sided pulmonary nodule, dyslipidemia, and hypothyroidism who presented to the ER on 01/20/21 with complaints of left hip pain after fall. Patient was reportedly in her kitchen when she slipped and fell on the kitchen floor landing on her left hip resulting in immediate pain and inability to move left leg. Patient is on blood thinners but denied hitting her head or having any loss of consciousness. Patient states she fell directly on her left hip and denied having any other injuries or complaints. In the emergency department patient underwent x-ray left hip which revealed acute displaced subcapital fracture of her left femur. An EKG was completed revealing normal sinus rhythm at 81 bpm with T-wave inversion in inferior and lateral leads of II, III, aVF, V4, V5, and V6. Labs revealed mild hyponatremia with sodium of 134 otherwise CBC, CMP, coags, and troponin showing no significant abnormalities. Urinalysis also negative for blood or infection. Covid 19 PCR negative. Patient was admitted under orthopedic surgery team and underwent left hip arthroplasty on 01/21/21. We were consulted to provide continued medical management throughout patient's hospitalization. During hospitalization patient went into atrial fibrillation with RVR and was transferred to stepdown unit and started on Cardizem infusion. She was also found to be hypoxic requiring O2 supplementation. Cardiology was consulted. Chest x-ray: Positive for underlying emphysema/COPD. Negative for acute cardiopulmonary process revealing some artifact in which they are suggesting outpatient follow up for repeat imaging to ensure resolution of artifact. Echocardiogram revealed EF between 60-65% with mild pulmonary hypertension. Physical examination: Patient seen and fully evaluated at the bedside this morning. She is post- operative day 5. Cardiology increased metoprolol to 50 mg twice daily along with the amiodarone and patient's heart rate has been maintained 80s to 90s since. Cardiology recommending patient follow up outpatient. She reports improvement in her shortness of breath with exertion. RN reports patient's resting pulse ox 92% decreasing down to 87% RA with ambulation requiring supplemental oxygen of 2 L O2 via nasal cannula increasing SpO2 to 91% with ambulation. We will arrange for patient to be discharged home on home oxygen secondary to her exertional hypoxia with underlying emphysema/COPD and mild pulmonary hypertension. Pt will need to follow up outpatient upon discharge to establish care with dermatology physician and further testing for her PFTs. RN also reports patient with persistent urinary retention despite second voiding trial since surgery. Patient remains unable to urinate independently and postvoid residual greater than 600 requiring catheterization 2. Orders placed for Flomax 0.4 mg daily as well as insertion of Leon. Patient may be discharged home with Leon and to follow up outpatient with urology for further voiding trials. Pt again incouraged to use incentive spirometry 10-15 times hourly while awake. Medically this patient is stable, she denies complaints or needs at this time including headache, lightheadedness, dizziness, chest pain, palpitations, shortness of breath at rest, abdominal pain, nausea, vomiting, or experiencing any numbness/tingling/weakness/swelling in her extremities. Reports postoperative pain is currently controlled. Labs reviewed showing no significant abnormalities Hgb stable 9.2. Patient medically stable for discharge once cleared by urology. General: non toxic, no distress, appears at stated age Derm: warm, dry. Bruising left lateral leg and hip. Dressing to left hip clean, dry, and intact with no signs of bleeding or drainage. Head: atraumatic, normocephalic, symmetric Eyes: EOMI, no lid lag, anicteric sclera, pupils equal round reactive to light ENT: Nose and ears atraumatic, no thrush, no pharyngeal erythema Neck: No thyromegaly, no cervical lymphadenopathy, trachea midline, supple Mouth: no lip lesion, mucus membranes moist Cardiovascular: Regular rate and rhythm. No murmur, positive posterior tibial pulses bilaterally, no edema, capillary refill less than 2 seconds Lungs: Clear to auscultation bilaterally with no ronchi, no rales, no wheeze, no accessory muscle use. Abdominal: soft, nontender to palpation, no guarding, no appreciable organomegaly, normal bowel sounds Ext: No gross muscle atrophy, Movement and sensation intact in all extremities. Neuro: CN II-XI grossly intact, light touch intact all 4 extremities, finger to nose within normal limits, Psych: Alert, oriented, appropriate affect Assessment and Plan of Care: Atrial fibrillation with RVR, Ventricular rate currently controlled Metoprolol increased to 50 mg twice a day and amiodarone currently controlling ventricular rate between 90s and 110s. Cardiologyfollowing, appreciate further recommendations. Echocardiogram: EF between 60-65% with mild pulmonary hypertension. Continue anticoagulation with Eliquis. Continued telemetry monitoring. TSH normal findings at 3.360. Hypoxia with ambulation requiring O2 supplementation COPD/Emphysema Pulmonary hypertension -Continue oxygenation as needed to maintain SpO2 equal to or greater than 90%. -Have arranged for home oxygen and recommend patient following up with pulmonology to establish care and for further testing such as PFTs. -Continue to encourage use of incentive spirometry 10-15 times hourly while awake. -Pulmonary hygiene Postsurgical urinary retention -Patient failed two voiding trials status post surgical procedure requiring straight catheterization due to patient's inability to urinate independently resulting in postvoid residuals greater than 600 miles. -Leon catheter to be placed -Patient started on Flomax -Recommend following up outpatient with urology for removal of Leon and further voiding trials. Status post Left direct anterior total hip arthroplasty on 01/21/21 secondary to Left subcapital hip fracture Management per primary admitting orthopedic surgery team. Post op day 4. Eliquis resumed 01/22/21 Pain management, DVT prophylaxis, weightbearing, PT/OT per primary admitting orthopedic surgery team. Encourage incentive spirometry 10-15x hours while awake. Dyslipidemia -Resume home medication regimen with atorvastatin Hypothyroidism -Resume home medication regimen with levothyroxine. -TSH 3.360. Pulmonary nodule -Known to patient. Patient is following with her PCP. Thank you for allowing us to participate in the care of this pleasant patient. Do not hesitate to contact us with questions. Someone can be reached from the [facility] hospitalist group all hours of the day at [phone] or via [employer]. Objective - Vital Signs Vital signs: Vital Signs Temp 97.9 F 01/26/21 04:00 Pulse 72 01/26/21 04:00 Resp 16 01/26/21 04:00 BP 111/65 01/26/21 04:00 Pulse Ox 97 01/26/21 04:00 Intake & Output 01/25/21 01/26/21 01/26/21 18:59 06:59 18:59 Intake Total 520 Output Total 500 275 Balance 20 -275 Weight 57.2 kg Intake: Oral 520 Output: Urine 500 275 Straight 275 Post Void Residual 0 Other: Voiding Method Indwelling Catheter Toilet # Voids 1 # Bowel Movements 1 - Labs CBC & Chem 7: 01/26/21 06:48 01/26/21 06:48 <Petty Clark - Last Filed: 01/26/21 22:54> Subjective Osman Jasmine NP rendered care for this patient independently, reviewed the findings and plan as documented in the note above. I did not physically speak with or examine the patient on this date. Objective - Vital Signs Vital signs: Vital Signs Temp 97.6 F 01/26/21 08:00 Pulse 84 01/26/21 16:30 Resp 16 01/26/21 16:00 BP 147/72 01/26/21 16:00 Pulse Ox 98 01/26/21 16:00 Intake & Output 01/26/21 01/26/21 01/27/21 06:59 18:59 06:59 Intake Total 240 Output Total 275 600 Balance -275 -360 Weight 57.2 kg Intake: Oral 240 Output: Urine 275 600 Straight 275 Post Void Residual 0 Other: Voiding Method Toilet Toilet - Labs CBC & Chem 7: 01/26/21 06:48 01/26/21 06:48 Labs: Abnormal Lab Results - Last 24 Hours (Table) 01/26/21 01/26/21 Range/Units 06:48 06:48 RBC 2.89 L (3.80-5.40) m/uL Hgb 9.2 L (11.4-16.0) gm/dL Hct 28.9 L (34.0-46.0) % MCV 100.1 H (80.0-100.0) fL Sodium 134 L (137-145) mmol/L Carbon Dioxide 20 L (22-30) mmol/L
[2021-01-26] MEDS: BENZOCAINE/MENTHOL LOZENG 1 EACH LOZENGE MUCOUS MEM PRN (14:39)
--- NOTE | 2021-01-26 16:27 | P.DS ---
Providers Date of admission: 01/20/21 02:01 Attending physician: Rigo Juan Consults: 01/20/21 01:36 Consult Physician Routine Consulting Provider: Yumiko William Consult Reason/Comments: Medical clearance for surgery Do you want consulting provider notified?: Yes Primary care physician: Jennifer Mckinley DO Hospital Course: This is a 70-year-old female who presented to [facility] ED on 01/20/21 after falling and sustaining injury to the left hip. On exam and x-ray in the emergency department she was found to have a left femoral neck fracture. The patient was admitted under the care of Dr. Juan for surgical intervention and care, with a consultation placed to internal medicine for perioperative medical management. The patient is taken to surgery for DA total left hip arthroplasty for displaced left femoral neck fracture on 01/21/21. The procedure is performed without complication or sequelae. Patient was noted to be in atrial fibrillation postoperatively, and was evaluated and cleared by cardiology for discharge. The patient is doing well postoperatively. Vital signs are stable on postop day #5. The patient was examined bedside this morning. Patient states her pain is very well-controlled and her left hip. She has been ambulating around her room with a walker with minimal pain in the left hip. Patient's Hayward catheter was removed yesterday evening, and patient has not voided freely. Flomax has been added per internal medicine. Her Hayward catheter has also been reinserted per internal medicine. Patient has had a bowel movement. She is tolerating her diet well. Patient has remained on supplemental oxygen postoperatively, which is being managed by internal medicine. She denies chest pain, shortness breath, nausea, vomiting, fevers, chills. On examination, the patient is sitting up in the bedside chair in no apparent distress. She is alert and oriented 3. On inspection of the left hip, there is a clean, dry, intact dressing in place. There is no drainage through the dressing. Mild swelling of the thigh, thigh is soft and compressible. Left lower extremity is warm and well-perfused with brisk capillary refill. Neurovascular is intact of the left lower extremity. Motor and sensory function is intact of the left lower extremity. Patient has full range of motion of her ankle and toes. The calves are soft and non-tender to palpation bilaterally. No evidence of DVT. The patient is discharged home with home health care today. Patient has been cleared by cardiology and internal medicine for discharge. She is instructed to follow-up with urology as an outpatient. Please refer to the [facility] for accurate list of medications. Patient Condition at Discharge: Serious Plan - Discharge Summary Discharge Rx Participant: No New Discharge Prescriptions: New Metoprolol Tartrate [Lopressor] 50 mg PO BID 30 Days #60 tab HYDROcodone/APAP 5-325MG [[place] 5-325] 1 tab PO Q6HR PRN 7 Days #28 tab PRN Reason: Pain Doxycycline Monohydrate 100 mg PO BID 14 Days #28 cap Amiodarone [Cordarone] 200 mg PO BID 30 Days #74 tab Tamsulosin [Flomax] 0.4 mg PO PC-BRKFST 30 Days #30 capsule Continue Levothyroxine Sodium [Synthroid] 75 mcg PO DAILY Ezetimibe [Zetia] 10 mg PO DAILY Apixaban [Eliquis] 5 mg PO BID Fluticasone Propion/Salmeterol [Fluticasone-Salmeterol 250-50] 1 puff INHALATION RT-BID Albuterol Sulfate [Albuterol Sulfate Hfa] 2 puff PO RT-Q4H PRN PRN Reason: Shortness Of Breath Rosuvastatin Calcium 5 mg PO DAILY Discontinued Diltiazem HCl [Diltiazem HCl 24Hr ER] 120 mg PO DAILY Discharge Medication List Albuterol Sulfate [Albuterol Sulfate Hfa] 2 puff PO RT-Q4H PRN 01/20/21 [History] Apixaban [Eliquis] 5 mg PO BID 01/20/21 [History] Ezetimibe [Zetia] 10 mg PO DAILY 01/20/21 [History] Fluticasone Propion/Salmeterol [Fluticasone-Salmeterol 250-50] 1 puff INHALATION RT-BID 01/20/21 [History] Levothyroxine Sodium [Synthroid] 75 mcg PO DAILY 01/20/21 [History] Rosuvastatin Calcium 5 mg PO DAILY 01/20/21 [History] Doxycycline Monohydrate 100 mg PO BID 14 Days #28 cap 01/21/21 [Rx] Amiodarone [Cordarone] 200 mg PO BID 30 Days #74 tab 01/26/21 [Rx] HYDROcodone/APAP 5-325MG [[place] 5-325] 1 tab PO Q6HR PRN 7 Days #28 tab 01/26/21 [Rx] Metoprolol Tartrate [Lopressor] 50 mg PO BID 30 Days #60 tab 01/26/21 [Rx] Tamsulosin [Flomax] 0.4 mg PO PC-BRKFST 30 Days #30 capsule 01/26/21 [Rx] Follow up Appointment(s)/Referral(s): Rodrick Wilkinson DO [STAFF PHYSICIAN] - 1 Week (follow up with cardiology for atrial fib with RVR) Geoffrey Foster MD [STAFF PHYSICIAN] - 1 Week (follow up for further voiding trial and removal of hayward cathetere) Jennifer Mckinley DO [Primary Care Provider] - 1-2 days Linda Liao MD [STAFF PHYSICIAN] - 1 Week (Follow up for outpatient PFTs due to underlying emphysema/COPD) [facility] Visiting Nurse, [NON-STAFF] - 1 Week Rigo Juan MD [Medical Doctor] - 2 Weeks Activity/Diet/Wound Care/Special Instructions: Activity: As tolerated, weightbearing as tolerated on operative leg with walker. Take breaks as needed. Diet: Heart healthy and carb consistent diet. Avoid salts, or foods with hidden salts such as canned or boxed foods and frozen dinners. Extra salt makes your heart work harder and traps the fluid in your body for longer. Special Instructions: Keep OptiForm dressing in place for 7-10 days. Take all of your medications as directed and remember to keep all of your doctor's appointments and follow-up as needed. Remember to follow up outpatient with your PCP for continued long-term monitoring of pulmonary nodule. You will be sent home with hayward catheter secondary to persistent urinary retention after your surgical procedure. You have been started on medication that will assist with this, Flomax, and you will need to follow up with urologist after discharge for removal of catheter and further voiding trial. We have arranged for home oxygen secondary to your hypoxia with minimal exertion resulting from your COPD. It is important to follow up with branch logistics supervisor for continued long-term monitoring and management as well as additional pulmonary function tests. Thank you for allowing us to participate in your care, it was truly a pleasure having you for our patient!!! Discharge Disposition: HOME WITH HOME HEALTH SERVICES Care Plan Goals (MU): [facility] will deliver walker to room, 2 wheeled. any questions please call agency. phone [phone]
[2021-01-26 16:46] VITALS: BP 147/72
[2021-01-26 16:48] VITALS: PULSE 84
== END 2021-01-26 18:07 | disposition home health service (06) | DRG 522 ==
LOC: EC 23:54 → 4SSUR 01-20 02:01 → 6NMEDSUR 01-20 03:48 → 4SSUR 01-21 16:15 → 3SCARD 01-23 03:31
PROVIDERS: ADMIT Orthopaedic Surgery; ATTEND Orthopaedic Surgery
PROC: 0SRB0J9 Replacement of Left Hip Joint with Synthetic Substitute, Cemented, Open Approach (ICD-10-PCS; principal; 2021-01-21 12:00)
DX: S72.012A Unspecified intracapsular fracture of left femur, initial encounter for closed fracture (principal); E87.1 Hypo-osmolality and hyponatremia; W01.0XXA Fall on same level from slipping, tripping and stumbling without subsequent striking against object, initial encounter; E03.9 Hypothyroidism, unspecified; E78.5 Hyperlipidemia, unspecified; F41.9 Anxiety disorder, unspecified; I48.0 Paroxysmal atrial fibrillation; R09.02 Hypoxemia; I27.20 Pulmonary hypertension, unspecified; J44.9 Chronic obstructive pulmonary disease, unspecified; Z20.822 Contact with and (suspected) exposure to COVID-19; Y92.000 Kitchen of unspecified non-institutional (private) residence as the place of occurrence of the external cause; Z79.899 Other long term (current) drug therapy; Z79.01 Long term (current) use of anticoagulants; Z79.51 Long term (current) use of inhaled steroids; Z79.890 Hormone replacement therapy; Z82.49 Family history of ischemic heart disease and other diseases of the circulatory system; Z85.12 Personal history of malignant neoplasm of trachea; Z87.891 Personal history of nicotine dependence; Z86.14 Personal history of Methicillin resistant Staphylococcus aureus infection; Z80.52 Family history of malignant neoplasm of bladder; Z85.01 Personal history of malignant neoplasm of esophagus
CPT/HCPCS: 36415; 71045; 73501; 73502; 80048; 80053; 81001; 82306; 83735; 84443; 84484; 85025; 85027; 85610; 85730; 86850; 86900; 86901; 87635; 88305; 88311; 90715; 93005; 93306; 94640; 94660; 94760; 96374; 99285

== ENCOUNTER 2021-01-28 13:06 | Inpatient (IN) | payer MEDICARE ==
--- NOTE | 2021-01-28 15:24 | ED ---
General Adult HPI - General Chief complaint: Seizure Stated complaint: New onset seizure Source: patient Mode of arrival: wheelchair Limitations: no limitations - History of Present Illness Initial comments: 70-year-old female past history of A. fib, COPD with recent left hip replacement on the presents to the emergency department with a new onset seizure. She was performing physical therapy today when she had a seizure. States that she felt lightheaded. They had the patient sit in the chair. Her eyes rolled back in her head and she had shaking of her bilateral hands. Episode lasted for approximately 30 seconds before resolved. Was witnessed by a physical therapist and her . No history of seizures. She denies any history of head trauma or stroke. No headaches or visual changes. No fevers. Denies having any chest pain or shortness of breath previous to the episode. Denies any unilateral numbness or weakness. Patient states she feels asymptomatic at this time. No other alleviating, precipitating or modifying factors - Related Data Home Medications Medication Instructions Recorded Confirmed Albuterol Sulfate [Albuterol 2 puff PO RT-Q4H PRN 01/20/21 01/28/21 Sulfate Hfa] Apixaban [Eliquis] 5 mg PO BID 01/20/21 01/28/21 Ezetimibe [Zetia] 10 mg PO DAILY 01/20/21 01/28/21 Fluticasone Propion/Salmeterol 1 puff INHALATION RT-BID 01/20/21 01/28/21 [Fluticasone-Salmeterol 250-50] Levothyroxine Sodium [Synthroid] 75 mcg PO DAILY 01/20/21 01/28/21 Rosuvastatin Calcium 5 mg PO DAILY 01/20/21 01/28/21 Amiodarone [Cordarone] See Taper PO BID 01/28/21 01/28/21 Previous Rx's Medication Instructions Recorded Doxycycline Monohydrate 100 mg PO BID 14 Days #28 cap 01/21/21 HYDROcodone/APAP 5-325MG [[place] 1 tab PO Q6HR PRN 7 Days #28 tab 01/26/21 5-325] Metoprolol Tartrate [Lopressor] 50 mg PO BID 30 Days #60 tab 01/26/21 Tamsulosin [Flomax] 0.4 mg PO PC-BRKFST 30 Days #30 01/26/21 capsule Allergies Allergy/AdvReac Type Severity Reaction Status Date / Time Penicillins Allergy Unknown Verified 01/28/21 17:40 codeine AdvReac Nausea & Verified 01/28/21 17:40 Vomiting Review of Systems ROS Statement: Those systems with pertinent positive or pertinent negative responses have been documented in the HPI. ROS Other: All systems not noted in ROS Statement are negative. 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 History of Any Multi-Drug Resistant Organisms: C-DIFF, MRSA Date of last positivie culture/infection: 01/24/2016 MDRO Source:: stool Past Surgical History: Tubal Ligation Additional Past Surgical History / Comment(s): Cancerous polyps removed from throat 11/02/2015, PICC line insertion (since removed) to tx MRSA infection, mediport, colonoscopy with benign polypectomies. Past Anesthesia/Blood Transfusion Reactions: No Reported Reaction Past Psychological History: Anxiety Smoking Status: Former smoker Past Alcohol Use History: Occasional Past Drug Use History: None Reported - Past Family History Father Family Medical History: Cancer Additional Family Medical History / Comment(s): bladder cancer Mother Family Medical History: Congestive Heart Failure (CHF) General Exam Limitations: no limitations Course Vital Signs 01/28/21 01/28/21 01/28/21 13:32 19:33 21:00 Temperature 98.0 F Pulse Rate 67 72 68 Respiratory 18 18 22 Rate Blood Pressure 132/76 142/87 110/57 O2 Sat by Pulse 99 100 99 Oximetry 01/29/21 00:00 Temperature 99.9 F H Pulse Rate 57 L Respiratory 22 Rate Blood Pressure 103/57 O2 Sat by Pulse 99 Oximetry - Reevaluation(s) Reevaluation #1: Spoke with Dr. García who feels that the patient should be admitted with a stat EEG ordered for tomorrow 01/28/21 19:00 EKG Findings - EKG Comments: EKG Findings:: EKG demonstrates a sinus rhythm with a ventricular rate of 74. MA interval 190. QRS 72. QTC of 428. Some baseline artifact. Inverted T-wave in V2 through V6. PVC present. No acute ST segment elevation Medical Decision Making - Medical Decision Making Upon arrival patient is placed into room 32. Thorough history and physical exam was performed. IV is established laboratory studies are conducted. Patient's Leon is changed and a specimen is sent for evaluation. Review the patient's la bs demonstrates an abnormal UA. Covid not detected. CT of the brain fails to demonstrate any acute process. I did perform a Doppler of the patient's left lower extremity do to swelling which does not demonstrate a DVT. I did call and speak with Dr. García who recommended that the patient be admitted with a stat EEG and neurology consultation. Patient given a dose Rocephin for her abnormal UA. I did speak with the patient who agreed to stay. Dr. García does not recommend antiepileptic at this time. Patient will be admitted to Dr. Fritz who agreed to admit the patient. Patient awaiting a bed on the floor in stable condition - Lab Data Result diagrams: 01/28/21 16:24 01/28/21 16:24 Lab Results 01/28/21 01/28/21 01/28/21 Range/Units 14:59 16:24 16:24 WBC 8.8 (3.8-10.6) k/uL RBC 3.19 L (3.80-5.40) m/uL Hgb 10.0 L (11.4-16.0) gm/dL Hct 30.8 L (34.0-46.0) % MCV 96.4 (80.0-100.0) fL MCH 31.4 (25.0-35.0) pg MCHC 32.5 (31.0-37.0) g/dL RDW 13.1 (11.5-15.5) % Plt Count 418 (150-450) k/uL MPV 7.5 Neutrophils % 81 % Lymphocytes % 11 % Monocytes % 4 % Eosinophils % 2 % Basophils % 0 % Neutrophils # 7.2 (1.3-7.7) k/uL Lymphocytes # 1.0 (1.0-4.8) k/uL Monocytes # 0.3 (0-1.0) k/uL Eosinophils # 0.2 (0-0.7) k/uL Basophils # 0.0 (0-0.2) k/uL Sodium 134 L (137-145) mmol/L Potassium 3.9 (3.5-5.1) mmol/L Chloride 102 (98-107) mmol/L Carbon Dioxide 27 (22-30) mmol/L Anion Gap 5 mmol/L BUN 15 (7-17) mg/dL Creatinine 0.60 (0.52-1.04) mg/dL Est GFR (CKD-EPI)AfAm >90 (>60 ml/min/1.73 sqM) Est GFR (CKD-EPI)NonAf >90 (>60 ml/min/1.73 sqM) Glucose 112 H (74-99) mg/dL Calcium 9.1 (8.4-10.2) mg/dL Magnesium 1.7 (1.6-2.3) mg/dL Total Bilirubin 0.4 (0.2-1.3) mg/dL AST 31 (14-36) U/L ALT 28 (4-34) U/L Alkaline Phosphatase 91 (38-126) U/L Total Protein 5.4 L (6.3-8.2) g/dL Albumin 2.9 L (3.5-5.0) g/dL Urine Color Urine Appearance (Clear) Urine pH (5.0-8.0) Ur Specific [place] (1.001-1.035) Urine Protein (Negative) Urine Glucose (UA) (Negative) Urine Ketones (Negative) Urine Blood (Negative) Urine Nitrite (Negative) Urine Bilirubin (Negative) Urine Urobilinogen (<2.0) mg/dL Ur Leukocyte Esterase (Negative) Urine RBC (0-5) /hpf Urine WBC (0-5) /hpf Ur Squamous Epith Cells (0-4) /hpf Calcium Oxalate Crystal (None) /hpf Urine Mucus (None) /hpf Coronavirus (PCR) Not Detected (Not Detectd) 01/28/21 Range/Units 16:35 WBC (3.8-10.6) k/uL RBC (3.80-5.40) m/uL Hgb (11.4-16.0) gm/dL Hct (34.0-46.0) % MCV (80.0-100.0) fL MCH (25.0-35.0) pg MCHC (31.0-37.0) g/dL RDW (11.5-15.5) % Plt Count (150-450) k/uL MPV Neutrophils % % Lymphocytes % % Monocytes % % Eosinophils % % Basophils % % Neutrophils # (1.3-7.7) k/uL Lymphocytes # (1.0-4.8) k/uL Monocytes # (0-1.0) k/uL Eosinophils # (0-0.7) k/uL Basophils # (0-0.2) k/uL Sodium (137-145) mmol/L Potassium (3.5-5.1) mmol/L Chloride (98-107) mmol/L Carbon Dioxide (22-30) mmol/L Anion Gap mmol/L BUN (7-17) mg/dL Creatinine (0.52-1.04) mg/dL Est GFR (CKD-EPI)AfAm (>60 ml/min/1.73 sqM) Est GFR (CKD-EPI)NonAf (>60 ml/min/1.73 sqM) Glucose (74-99) mg/dL Calcium (8.4-10.2) mg/dL Magnesium (1.6-2.3) mg/dL Total Bilirubin (0.2-1.3) mg/dL AST (14-36) U/L ALT (4-34) U/L Alkaline Phosphatase (38-126) U/L Total Protein (6.3-8.2) g/dL Albumin (3.5-5.0) g/dL Urine Color Light Red Urine Appearance Cloudy H (Clear) Urine pH 6.0 (5.0-8.0) Ur Specific [place] 1.034 (1.001-1.035) Urine Protein 1+ H (Negative) Urine Glucose (UA) Negative (Negative) Urine Ketones Trace H (Negative) Urine Blood Large H (Negative) Urine Nitrite Negative (Negative) Urine Bilirubin Negative (Negative) Urine Urobilinogen 3.0 (<2.0) mg/dL Ur Leukocyte Esterase Small H (Negative) Urine RBC >182 H (0-5) /hpf Urine WBC 30 H (0-5) /hpf Ur Squamous Epith Cells 1 (0-4) /hpf Calcium Oxalate Crystal Moderate H (None) /hpf Urine Mucus Many H (None) /hpf Coronavirus (PCR) (Not Detectd) Disposition Clinical Impression: New onset seizure Disposition: ADMITTED IP TO THIS HOSP Condition: Stable Is patient prescribed a controlled substance at d/c from ED?: No
[2021-01-28 16:36] LABS: Basophils % (A) 0 %; Eosinophils # (A) 0.2 k/uL (0-0.7); Eosinophils % (A) 2 %; HCT 30.8 % (34.0-46.0); Lymphocytes % (A) 11 %; MCH 31.4 pg (25.0-35.0); MCHC 32.5 g/dL (31.0-37.0); MCV 96.4 fL (80.0-100.0); Mean Platelet Volume 7.5; Monocytes # (A) 0.3 k/uL (0-1.0); Monocytes % (A) 4 %; Neutrophils # (A) 7.2 k/uL (1.3-7.7); Neutrophils % (A) 81 %; Platelet Count 418 k/uL (150-450); RBC 3.19 m/uL (3.80-5.40); RDW 13.1 % (11.5-15.5); WBC 8.8 k/uL (3.8-10.6)
[2021-01-28 16:54] LABS: ALT 28 U/L (4-34); AST 31 U/L (14-36); African American GFR (CKD) >90 (>60 ml/min/1.73 sqM); Albumin 2.9 g/dL (3.5-5.0); Alkaline Phosphatase 91 U/L (38-126); Anion Gap 5 mmol/L; Blood Urea Nitrogen 15 mg/dL (7-17); Calcium 9.1 mg/dL (8.4-10.2); Carbon Dioxide 27 mmol/L (22-30); Chloride 102 mmol/L (98-107); Glucose 112 mg/dL (74-99); Magnesium 1.7 mg/dL (1.6-2.3); Non-African American GFR(CKD) >90 (>60 ml/min/1.73 sqM); Potassium 3.9 mmol/L (3.5-5.1); Sodium 134 mmol/L (137-145); Total Bilirubin 0.4 mg/dL (0.2-1.3); Total Protein 5.4 g/dL (6.3-8.2)
--- NOTE | 2021-01-28 17:10 | CT ---
EXAMINATION TYPE: CT brain wo con DATE OF EXAM: 01/28/2021 COMPARISON: None HISTORY: Seizure today. TECHNIQUE: CT scan of the head performed without contrast CT DLP: 1070.4 mGycm Automated exposure control for dose reduction was used. FINDINGS: Acute intracranial hemorrhage, midline shift or mass effect. Otto-white matter differentiation is preserved. Prominent ventricles and CSF spaces consistent with brain volume loss. Mild patchy low-attenuation the deep white matter periventricular region likely on the basis of chron ic microvascular ischemic changes. Atherosclerotic calcifications are seen in the intracranial internal carotid arteries. Paranasal sinuses and mastoid air cells are aerated. No acute orbital, osseous or soft tissue abnormalities seen. IMPRESSION: ACUTE INTRACRANIAL HEMORRHAGE MIDLINE SHIFT OR MASS EFFECT. CHRONIC CHANGES DESCRIBED IN BODY OF REPORT.
[2021-01-28 17:37] LABS: Appearance,Urine Cloudy (Clear); Bilirubin,Urine Negative (Negative); Blood,Urine Large (Negative); Calcium Oxalate Crystals,Urine Moderate /hpf; Color,Urine Light Red; Glucose,Urine (UA) Negative (Negative); Ketones,Urine Trace (Negative); Leukocyte Esterase,Urine Small (Negative); Mucus,Urine Many /hpf; Nitrite,Urine Negative (Negative); Protein,Urine 1+ (Negative); RBC,Urine >182 /hpf (0-5); Specific Gravity,Urine 1.034 (1.001-1.035); Squamous Epithelial Cell,Urine 1 /hpf (0-4); WBC,Urine 30 /hpf (0-5)
--- NOTE | 2021-01-28 17:44 | US ---
EXAMINATION TYPE: US venous doppler duplex LE LT DATE OF EXAM: 01/28/2021 5:29 PM COMPARISON: NONE CLINICAL HISTORY: Left leg swelling , left hip replacement on 01/21/21 SIDE PERFORMED: Left TECHNIQUE: The lower extremity deep venous system is examined utilizing real time linear array sonog monse with graded compression, doppler sonography and color-flow sonography. VESSELS IMAGED: Common Femoral Vein Deep Femoral Vein Greater Saphenous Vein * Femoral Vein Popliteal Vein Small Saphenous Vein * Proximal Calf Veins (* superficial vessels) Left Leg: Grayscale, color doppler, spectral doppler imaging performed of the deep veins of the lowe r extremities. There is normal flow, compressibility, vascular waveforms. IMPRESSION: Negative for DVT
[2021-01-28] MEDS ORDERED: cefTRIAXone IN SWFI 1,000 MG/10 ML SYRINGE IVP STA (18:14)
[2021-01-28] MEDS ORDERED: NALOXONE 0.4 MG/ML 1 ML VIAL IV PRN (19:09)
[2021-01-28] MEDS ORDERED: ALBUTEROL NEBULIZED 2.5 MG/3 ML INHALATION PRN (19:10)
[2021-01-28] MEDS: APIXABAN 5 MG TAB PO SCH (22:29)
[2021-01-28] MEDS: METOPROLOL TARTRATE 50 MG TAB PO SCH (22:29)
[2021-01-28] MEDS: TAMSULOSIN 0.4 MG CAP.ER.24H PO SCH (22:30)
[2021-01-28] MEDS: ATORVASTATIN 10 MG TAB PO SCH (22:30)
[2021-01-28] MEDS: AMIODARONE 200 MG TAB PO SCH (22:30)
[2021-01-28] MEDS: HYDROcodone/APAP 5-325MG 1 EACH TAB PO PRN (22:32)
[2021-01-29] MEDS: SYMBICORT 80-4.5 MCG INHALER INHALATION SCH ×3 (02:31→20:41)
[2021-01-29] MEDS: LEVOTHYROXINE 75 MCG TAB PO SCH (06:14)
[2021-01-29] MEDS: AMIODARONE 200 MG TAB PO SCH ×2 (08:39→19:49)
[2021-01-29] MEDS: TAMSULOSIN 0.4 MG CAP.ER.24H PO SCH (08:39)
[2021-01-29] MEDS: ATORVASTATIN 10 MG TAB PO SCH (08:40)
[2021-01-29] MEDS: EZETIMIBE 10 MG TAB PO SCH (08:40)
[2021-01-29] MEDS: APIXABAN 5 MG TAB PO SCH ×2 (08:40→19:49)
[2021-01-29] MEDS: METOPROLOL TARTRATE 50 MG TAB PO SCH ×2 (08:40→19:49)
[2021-01-29] MEDS ORDERED: DILTIAZEM DRIP BOLUS FROM BAG 1 MG SOLN IV ONE (09:15)
[2021-01-29] MEDS: DILTIAZEM 125 MG in SODIUM CHLORIDE 0.9% 100 ML IV SCH (09:17)
[2021-01-29 10:56] LABS: HCT 27.8 % (34.0-46.0); HGB 9.4 gm/dL (11.4-16.0); MCH 32.7 pg (25.0-35.0); MCHC 33.8 g/dL (31.0-37.0); MCV 96.7 fL (80.0-100.0); Mean Platelet Volume 7.9; RBC 2.88 m/uL (3.80-5.40); RDW 13.3 % (11.5-15.5); WBC 7.4 k/uL (3.8-10.6)
[2021-01-29 11:04] LABS: African American GFR (CKD) >90 (>60 ml/min/1.73 sqM); Anion Gap 6 mmol/L; Blood Urea Nitrogen 14 mg/dL (7-17); Calcium 8.4 mg/dL (8.4-10.2); Carbon Dioxide 25 mmol/L (22-30); Chloride 102 mmol/L (98-107); Glucose 130 mg/dL (74-99); Non-African American GFR(CKD) >90 (>60 ml/min/1.73 sqM); Sodium 133 mmol/L (137-145)
[2021-01-29 11:39] LABS: Band Neutrophils % 2 %; Eosinophils # (M) 0.07 k/uL (0-0.7); Lymphocytes # (M) 0.44 k/uL (1.0-4.8); Monocytes # (M) 0.44 k/uL (0-1.0); Neutrophils % (M) 85 %; Nucleated Red Blood Cells 0 /100 WBC (0-0); Polychromasia Present; Total Cells Counted 100
[2021-01-29 11:40] LABS: Platelet Count 441 k/uL (150-450)
[2021-01-29] MEDS: HYDROcodone/APAP 5-325MG 1 EACH TAB PO PRN ×2 (14:26→23:56)
--- NOTE | 2021-01-29 15:47 | XR ---
EXAMINATION TYPE: XR chest 2V DATE OF EXAM: 01/29/2021 COMPARISON: 01/23/2021 HISTORY: Cough TECHNIQUE: 2 views FINDINGS: Heart is normal. There is some blunting of the costophrenic angles. There are no hilar mass es. There is no sign of mediastinal adenopathy. There is no heart failure. IMPRESSION: Bilateral pleural effusions which are significantly increased compared to recent exam. No heart failure seen.
--- NOTE | 2021-01-29 17:45 | P.CNNES ---
History of Present Illness Consult date: 01/29/21 Chief complaint: Seizure History of Present Illness: The patient is a 70-year-old female who is seen in neurologic consultation on January 29, 2021, via telemedicine. The patient reports that she recently had a left hip replacement. She says that she was at physical therapy and was walking with the assistance of walker. She said that she became "winded", feeling lightheaded and dropped into a chair, that her provided. The patient states that she did lose consciousness. She said she felt as if she was dreaming. She said she heard people calling her name. When she opened her eyes, she was not confused. She knew exactly where she was and was able to speak. The patient recognized the people around her. There was no tongue biting or loss of bowel control. The patient was back to her normal self. According to the patient's , the patient's eyes "rolled back into her head". Her body reportedly stiffened. Her eyelids remained open. She had rolling type movements of her wrists. The entire episode lasted approximately 30 seconds. The patient denies a history of seizure. The patient denies headache, visual changes, soreness of muscles, no difficulty with speech, no difficulty swallowing, soreness of her tongue. The patient does report feeling this morning as if she was in A-fib. She says she felt a slight "flutter". 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 History of Any Multi-Drug Resistant Organisms: C-DIFF, MRSA Date of last positivie culture/infection: 01/24/2016 MDRO Source:: stool Past Surgical History: Orthopedic Surgery, Tubal Ligation Additional Past Surgical History / Comment(s): Cancerous polyps removed from throat 11/02/2015, PICC line insertion (since removed) to tx MRSA infection, mediport, colonoscopy with benign polypectomies. Left hip fracture repair 2020 Past Anesthesia/Blood Transfusion Reactions: No Reported Reaction Past Psychological History: Anxiety Additional Psychological History / Comment(s): Pt resides with her spouse. She is independent. She normally drives but not lately due to illness. Smoking Status: Former smoker Past Alcohol Use History: Occasional Additional Past Alcohol Use History / Comment(s): started smoking at age 19, was smoking 1/2-1. She quit smoking 10/14/15. Past Drug Use History: None Reported - Past Family History Father Family Medical History: Cancer Additional Family Medical History / Comment(s): bladder cancer Mother Family Medical History: Congestive Heart Failure (CHF) Medications and Allergies Home Medications Medication Instructions Recorded Confirmed Type Albuterol Sulfate [Albuterol 2 puff PO RT-Q4H PRN 01/20/21 01/28/21 History Sulfate Hfa] Apixaban [Eliquis] 5 mg PO BID 01/20/21 01/28/21 History Ezetimibe [Zetia] 10 mg PO DAILY 01/20/21 01/28/21 History Fluticasone Propion/Salmeterol 1 puff INHALATION RT-BID 01/20/21 01/28/21 History [Fluticasone-Salmeterol 250-50] Levothyroxine Sodium [Synthroid] 75 mcg PO DAILY 01/20/21 01/28/21 History Rosuvastatin Calcium 5 mg PO DAILY 01/20/21 01/28/21 History Doxycycline Monohydrate 100 mg PO BID 14 Days #28 cap 01/21/21 01/28/21 Rx HYDROcodone/APAP 5-325MG [[place] 1 tab PO Q6HR PRN 7 Days #28 tab 01/26/21 01/28/21 Rx 5-325] Metoprolol Tartrate [Lopressor] 50 mg PO BID 30 Days #60 tab 01/26/21 01/28/21 Rx Tamsulosin [Flomax] 0.4 mg PO PC-BRKFST 30 Days #30 01/26/21 01/28/21 Rx capsule Amiodarone [Cordarone] See Taper PO BID 01/28/21 01/28/21 History Allergies Allergy/AdvReac Type Severity Reaction Status Date / Time Penicillins Allergy Unknown Verified 01/28/21 17:40 codeine AdvReac Nausea & Verified 01/28/21 17:40 Vomiting Physical Examination - Vital Signs Vital Signs: Vital Signs Temp Pulse Pulse Resp BP BP Pulse Ox 01/29/21 14:00 61 18 01/29/21 11:28 98.0 F 61 18 104/65 97 01/29/21 08:00 98.0 F 180 H 18 110/67 96 01/29/21 04:00 97.7 F 70 18 133/79 100 01/29/21 00:00 99.9 F H 57 L 61 16 103/57 107/57 99 01/28/21 21:00 68 22 110/57 99 01/28/21 19:33 72 18 142/87 100 Intake and Output 01/28/21 01/29/21 01/29/21 22:59 06:59 14:59 Intake Total 240 249.5 Output Total 200 675 Balance 40 -425.5 Intake: Intake, IV Titration 9.5 Amount Diltiazem 125 mg In 9.5 Sodium Chloride 0.9% 100 ml @ 5 MG/HR 5 mls/hr IV .Q24H [facility] Rx#:[id number] Oral 240 240 Output: Urine 200 675 Other: Voiding Method Indwelling Catheter Indwelling Catheter Weight 60 kg Gen.: The patient is reclining in the bed. She is well-nourished, well- developed and in no acute distress. HEENT: Head is atraumatic, normocephalic. Fundus not visualized. There is no scleral icterus. Mucous membranes are moist. There is a mild head tremor. Neck: Supple without carotid bruits Heart: Regular rate and rhythm Extremities: Without edema Neurological examination Mental status: The patient is awake, alert and oriented 3. Her speech is clear. There is no dysarthria or aphasia. Cranial nerves: Pupils are equal at 3 mm and reactive. Visual huggins are full to confrontation. Extraocular movements are intact. There is no nystagmus. Facial sensation is intact. There is no facial asymmetry. Hearing is grossly intact. Uvula and palate are midline. Shoulder shrug is symmetric. Tongue protrudes midline. Motor: Bilateral upper extremity strength is 5/5. Left proximal lower extremity strength is not assessed. Right lower extremity strength 5/5. Left ankle dorsiflexor 4-5/5. Sensation: Grossly intact to light touch throughout. There is no extinction with double simultaneous stimulation. Deep tendon reflexes: 2+/4+ in the bilateral upper extremities. 3+/4+ at the patellar reflexes. Gait: Not assessed Coordination: Finger to nose and rapid alternating movements are intact. Results - Laboratory Findings CBC and BMP: 01/29/21 10:03 01/29/21 10:03 Abnormal Lab Findings: Abnormal Labs 01/28/21 01/28/21 01/28/21 16:24 16:24 16:35 RBC 3.19 L Hgb 10.0 L Hct 30.8 L Lymphocytes # (Manual) Sodium 134 L Glucose 112 H Total Protein 5.4 L Albumin 2.9 L Urine Appearance Cloudy H Urine Protein 1+ H Urine Ketones Trace H Urine Blood Large H Ur Leukocyte Esterase Small H Urine RBC >182 H Urine WBC 30 H Calcium Oxalate Crystal Moderate H Urine Mucus Many H 01/29/21 01/29/21 10:03 10:03 RBC 2.88 L Hgb 9.4 L Hct 27.8 L Lymphocytes # (Manual) 0.44 L Sodium 133 L Glucose 130 H Total Protein Albumin Urine Appearance Urine Protein Urine Ketones Urine Blood Ur Leukocyte Esterase Urine RBC Urine WBC Calcium Oxalate Crystal Urine Mucus Assessment and Plan Assessment: 1. Loss of consciousness with abnormal movements, likely secondary to convulsive syncope. 2. History of atrial fibrillation which may have contributed to the patient's shortness of breath and lightheadedness 3. Recent left hip replacement Plan: 1. Agree with EEG, await results 2. Continue physical therapy for strengthening 3. Continue to monitor heart rate and blood pressure 3. Check orthostatic vitals Thank you for allowing me to participate in the care of this very nice lady Time with Patient: Greater than 30 (spent 40 minutes with patient via telemedicine)
--- NOTE | 2021-01-29 19:54 | P.CRDCN ---
History of Present Illness History of present illness: HISTORY OF PRESENTING ILLNESS Is a pleasant 70-year-old female with a recent left hip replacement, paroxysmal atrial fibrillation, tracheal cancer status post radiation and chemotherapy, pre vious tobacco abuse quit in 2016 who presents secondary to loss of consciousness with seizure-like activity. Patient was recently admitted with hip replacement last week and had somewhat prolonged recovery complicated by episodes of atrial fibrillation with RVR. Patient had been started on amiodarone as well as metoprolol and she been tolerating this well and then discharged. She was having frequent runs of A. fib with heart rates up to 130s. The amiodarone was new. Apparently she had done okay for approximately 2 days however then was doing some routine walking around the kitchen and showing her and physical therapist when she states she became somewhat lightheaded and then was looking like she was going to pass out and was being brought down into a chair when she started having seizure-like activity. Apparently this lasted for 20-30 seconds. Patient denies any prior history of anything similar. She did not hurt herself. Patient initially was noted to be in sinus rhythm on presentation with minimal ST changes in anterolateral leads however them was noted to be in A. fib with RVR this morning with heart rates 120s up to 160s. Patient states that during that episode she did not have any significant chest pain or pressure however did feel a fluttering. Denies any shortness breath. She was placed on a Cardizem drip as well as the home amiodarone and metoprolol and then converted back to sinus rhythm a few hours ago. REVIEW OF SYSTEMS At the time of my exam: CONSTITUTIONAL: Denies fever or chills. CARDIOVASCULAR: Denies chest pain, shortness of breath, orthopnea, PND +palpitations. RESPIRATORY: Denies cough. GASTROINTESTINAL: Denies abdominal pain, diarrhea, constipation, nausea or vomiting. MUSCULOSKELETAL: Denies myalgias. NEUROLOGIC: Denies numbness, tingling or weakness. ENDOCRINE: Denies fatigue, weight change, polydipsia or polyurina. GENITOURINARY: Denies burning, hematuria or urgency with micturation. HEMATOLOGIC: Denies history of anemia or bleeding. PHYSICAL EXAMINATION Vital signs reviewed. CONSTITUTIONAL: No apparent distress. HEENT: Head is normocephalic. Pupils are equal, round. Sclerae anicteric. Mucous membranes of the mouth are moist. No JVD. No carotid bruit. CHEST EXAMINATION: Lungs are clear to auscultation. No chest wall tenderness is noted on palpation or with deep breathing. HEART EXAMINATION: Regular rate and rhythm. S1, S2 heard. No murmurs, gallops or rub. ABDOMEN: Soft, nontender. Positive bowel sounds. EXTREMITIES: 2+ peripheral pulses, no lower extremity edema and no calf tenderness. NEUROLOGIC EXAMINATION: Patient is awake, alert and oriented x3. ASSESSMENT 1. Loss of consciousness with seizure-like activity likely related to syncope and then seizure related to hypoperfusional state 2. Paroxysmal atrial fibrillation, currently sinus rhythm 3. Hypertension 4. Recent hip surgery 5. Abnormal EKG PLAN Patient's presentation concerning for syncope and possible cardiogenic syncope with addition of recent medications. She has been having significant tachycardic episodes with heart rates 120s up to 160s when she is in A. fib however she is not that symptomatic when she is in A. fib even up to 150s to 160s. Concern of possible bradycardia however when she is converted she has not had significant pauses. Continue with current dose of amiodarone as well as metoprolol. Check troponin and repeat EKG given mildly abnormal EKG. Recent echo with preserved ejection fraction. Continue to monitor patient on telemetry. Neurology recommendations appreciated. If no significant arrhythmia noted would continue with current regimen however would recommend outpatient 30 day event monitor on discharge. 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 History of Any Multi-Drug Resistant Organisms: C-DIFF, MRSA Date of last positivie culture/infection: 01/24/2016 MDRO Source:: stool Past Surgical History: Orthopedic Surgery, Tubal Ligation Additional Past Surgical History / Comment(s): Cancerous polyps removed from throat 11/02/2015, PICC line insertion (since removed) to tx MRSA infection, mediport, colonoscopy with benign polypectomies. Left hip fracture repair 2020 Past Anesthesia/Blood Transfusion Reactions: No Reported Reaction Past Psychological History: Anxiety Additional Psychological History / Comment(s): Pt resides with her spouse. She is independent. She normally drives but not lately due to illness. Smoking Status: Former smoker Past Alcohol Use History: Occasional Additional Past Alcohol Use History / Comment(s): started smoking at age 19, was smoking 1/2-1. She quit smoking 10/14/15. Past Drug Use History: None Reported - Past Family History Father Family Medical History: Cancer Additional Family Medical History / Comment(s): bladder cancer Mother Family Medical History: Congestive Heart Failure (CHF) Medications and Allergies Home Medications Medication Instructions Recorded Confirmed Type Albuterol Sulfate [Albuterol 2 puff PO RT-Q4H PRN 01/20/21 01/28/21 History Sulfate Hfa] Apixaban [Eliquis] 5 mg PO BID 01/20/21 01/28/21 History Ezetimibe [Zetia] 10 mg PO DAILY 01/20/21 01/28/21 History Fluticasone Propion/Salmeterol 1 puff INHALATION RT-BID 01/20/21 01/28/21 History [Fluticasone-Salmeterol 250-50] Levothyroxine Sodium [Synthroid] 75 mcg PO DAILY 01/20/21 01/28/21 History Rosuvastatin Calcium 5 mg PO DAILY 01/20/21 01/28/21 History Doxycycline Monohydrate 100 mg PO BID 14 Days #28 cap 01/21/21 01/28/21 Rx HYDROcodone/APAP 5-325MG [[place] 1 tab PO Q6HR PRN 7 Days #28 tab 01/26/21 01/28/21 Rx 5-325] Metoprolol Tartrate [Lopressor] 50 mg PO BID 30 Days #60 tab 01/26/21 01/28/21 Rx Tamsulosin [Flomax] 0.4 mg PO PC-BRKFST 30 Days #30 01/26/21 01/28/21 Rx capsule Amiodarone [Cordarone] See Taper PO BID 01/28/21 01/28/21 History Allergies Allergy/AdvReac Type Severity Reaction Status Date / Time Penicillins Allergy Unknown Verified 01/28/21 17:40 codeine AdvReac Nausea & Verified 01/28/21 17:40 Vomiting Physical Exam Vitals: Vital Signs Temp Pulse Pulse Resp BP BP Pulse Ox 01/29/21 16:00 98.0 F 67 18 106/56 96 01/29/21 15:35 97 11/06/21 14:00 61 18 01/29/21 11:28 98.0 F 61 18 104/65 97 01/29/21 08:00 98.0 F 180 H 18 110/67 96 01/29/21 04:00 97.7 F 70 18 133/79 100 01/29/21 00:00 99.9 F H 57 L 61 16 103/57 107/57 99 01/28/21 21:00 68 22 110/57 99 Intake and Output 01/29/21 01/29/21 01/29/21 06:59 14:59 22:59 Intake Total 240 367.5 118 Output Total 200 675 Balance 40 -307.5 118 Intake: Intake, IV Titration 9.5 Amount Diltiazem 125 mg In 9.5 Sodium Chloride 0.9% 100 ml @ 5 MG/HR 5 mls/hr IV .Q24H [facility] Rx#:[id number] Oral 240 358 118 Output: Urine 200 675 Other: Voiding Method Indwelling Catheter Indwelling Catheter Weight 60 kg Results 01/29/21 10:03 01/29/21 10:03 CBC 01/29/21 Range/Units 10:03 WBC 7.4 (3.8-10.6) k/uL RBC 2.88 L (3.80-5.40) m/uL Hgb 9.4 L (11.4-16.0) gm/dL Hct 27.8 L (34.0-46.0) % Plt Count 441 (150-450) k/uL Comprehensive Metabolic Panel 01/29/21 Range/Units 10:03 Sodium 133 L (137-145) mmol/L Potassium 4.0 (3.5-5.1) mmol/L Chloride 102 (98-107) mmol/L Carbon Dioxide 25 (22-30) mmol/L BUN 14 (7-17) mg/dL Creatinine 0.62 (0.52-1.04) mg/dL Glucose 130 H (74-99) mg/dL Calcium 8.4 (8.4-10.2) mg/dL Current Medications Generic Name Dose Route Start Last Admin Trade Name Freq PRN Reason Stop Dose Admin Hydrocodone Bitart/Acetaminophen 1 each 01/28/21 19:10 01/29/21 14:26 Hydrocodone/Apap 5-325mg 1 Each Tab PO 1 each Q6HR PRN Administration Pain Albuterol Sulfate 2.5 mg 01/28/21 19:10 Albuterol Nebulized 2.5 Mg/3 Ml INHALATION RT-Q4H PRN Shortness Of Breath Amiodarone HCl 200 mg 01/28/21 21:00 01/29/21 19:49 Amiodarone 200 Mg Tab PO 200 mg BID DAVE Administration Apixaban 5 mg 01/28/21 21:00 01/29/21 19:49 Apixaban 5 Mg Tab PO 5 mg BID DAVE Administration Protocol Atorvastatin Calcium 10 mg 01/28/21 19:15 01/29/21 08:40 Atorvastatin 10 Mg Tab PO 10 mg DAILY DAVE Administration Budesonide/Formoterol Fumarate 2 puff 01/28/21 20:00 01/29/21 07:26 Symbicort 80-4.5 Mcg Inhaler INHALATION 2 puff RT-BID DAVE Administration Ezetimibe 10 mg 01/29/21 09:00 01/29/21 08:40 Ezetimibe 10 Mg Tab PO 10 mg DAILY DAVE Administration Diltiazem HCl 125 mg/ Sodium 125 mls @ 5 mls/hr 01/29/21 09:15 01/29/21 11:11 Chloride IV 0 mg/hr .Q24H DAVE 0 mls/hr Infusion 5 MG/HR Ceftriaxone Sodium 1 gm/ 50 mls @ 100 mls/hr 01/29/21 14:00 01/29/21 14:27 Sodium Chloride IVPB 100 mls/hr Q24HR DAVE Administration Levothyroxine Sodium 75 mcg 01/29/21 06:30 01/29/21 06:14 Levothyroxine 75 Mcg Tab PO 75 mcg DAILY@0630 DAVE Administration Metoprolol Tartrate 50 mg 01/28/21 21:00 01/29/21 19:49 Metoprolol Tartrate 50 Mg Tab PO 50 mg BID DAVE Administration Naloxone HCl 0.2 mg 01/28/21 19:09 Naloxone 0.4 Mg/Ml 1 Ml Vial IV Q2M PRN Opioid Reversal Tamsulosin HCl 0.4 mg 01/28/21 19:15 01/29/21 08:39 Tamsulosin 0.4 Mg Cap.Er.24h PO 0.4 mg PC-BRKFST DAVE Administration Intake and Output 01/29/21 01/29/21 01/29/21 06:59 14:59 22:59 Intake Total 240 367.5 118 Output Total 200 675 Balance 40 -307.5 118 Intake: Intake, IV Titration 9.5 Amount Diltiazem 125 mg In 9.5 Sodium Chloride 0.9% 100 ml @ 5 MG/HR 5 mls/hr IV .Q24H [facility] Rx#:[id number] Oral 240 358 118 Output: Urine 200 675 Other: Voiding Method Indwelling Catheter Indwelling Catheter Weight 60 kg 01/29/21 10:03 01/29/21 10:03
--- NOTE | 2021-01-29 22:55 | P.HPIM ---
History of Present Illness H&P Date: 01/29/21 Chief Complaint: Passing out/Seziure like activity Ms. 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 Patient was recently in the hospital admitted for left hip replacement and discharged home. Patient was undergoing physical therapy when her and the physiotherapist noticed the patient had slumped on the chair and probably there was loss of consciousness for less than a minute. Patient states that she felt like she was passing out. She denied having any tongue bite. Patient had a Leon's catheter in place. She said she was immediately back to normal within few seconds to 1 minute. She was told that she was having tremors/seizure-like activity of her hands when she had this episode. Patient denied having any injuries related to this episode. At the time of admission patient's vital signs T-max of 99.9, heart rate 57, rest and reviewing her labs white count of 8.8, hemoglobin 10, platelets 418. Sodium 134, potassium 3.9, chloride 102, bicarb 27, BUN 15, creatinine 0.60. Urine analysis positive for blood beside Estrace 30 WBCs and many mucous cells. Coronavirus PCR is negative. Patient had a CT of the brain that was negative for any acute intracranial hemorrhage she also had an venous Doppler of her left lower extremity that is negative for DVT. EKG showing sinus rhythm chest x-ray bilateral pleural effusion which has significantly increased compared to recent exam. Review of Systems REVIEW OF SYSTEMS: CONSTITUTIONAL: No fever, no malaise, no fatigue. HEENT: No recent visual problems or hearing problems. Denied any sore throat. CARDIOVASCULAR: No chest pain, orthopnea, PND, no palpitations, no syncope. PULMONARY: no hemoptysis. GASTROINTESTINAL: No diarrhea, no nausea, no vomiting, no abdominal pain. NEUROLOGICAL: No headaches, no weakness, no numbness. HEMATOLOGICAL: Denies any bleeding or petechiae. GENITOURINARY: Denies any burning micturition, frequency, or urgency. MUSCULOSKELETAL/RHEUMATOLOGICAL: Left hip arthroplasty ENDOCRINE: Denies any polyuria or polydipsia. The rest of the 14-point review of systems is negative. 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 History of Any Multi-Drug Resistant Organisms: C-DIFF, MRSA Date of last positivie culture/infection: 01/24/2016 MDRO Source:: stool Past Surgical History: Orthopedic Surgery, Tubal Ligation Additional Past Surgical History / Comment(s): Cancerous polyps removed from throat 11/02/2015, PICC line insertion (since removed) to tx MRSA infection, mediport, colonoscopy with benign polypectomies. Left hip fracture repair 2020 Past Anesthesia/Blood Transfusion Reactions: No Reported Reaction Past Psychological History: Anxiety Additional Psychological History / Comment(s): Pt resides with her spouse. She is independent. She normally drives but not lately due to illness. Smoking Status: Former smoker Past Alcohol Use History: Occasional Additional Past Alcohol Use History / Comment(s): started smoking at age 19, was smoking 1/2-1. She quit smoking 10/14/15. Past Drug Use History: None Reported - Past Family History Father Family Medical History: Cancer Additional Family Medical History / Comment(s): bladder cancer Mother Family Medical History: Congestive Heart Failure (CHF) Medications and Allergies Home Medications Medication Instructions Recorded Confirmed Type Albuterol Sulfate [Albuterol 2 puff PO RT-Q4H PRN 01/20/21 01/28/21 History Sulfate Hfa] Apixaban [Eliquis] 5 mg PO BID 01/20/21 01/28/21 History Ezetimibe [Zetia] 10 mg PO DAILY 01/20/21 01/28/21 History Fluticasone Propion/Salmeterol 1 puff INHALATION RT-BID 01/20/21 01/28/21 History [Fluticasone-Salmeterol 250-50] Levothyroxine Sodium [Synthroid] 75 mcg PO DAILY 01/20/21 01/28/21 History Rosuvastatin Calcium 5 mg PO DAILY 01/20/21 01/28/21 History Doxycycline Monohydrate 100 mg PO BID 14 Days #28 cap 01/21/21 01/28/21 Rx HYDROcodone/APAP 5-325MG [[place] 1 tab PO Q6HR PRN 7 Days #28 tab 01/26/21 01/28/21 Rx 5-325] Metoprolol Tartrate [Lopressor] 50 mg PO BID 30 Days #60 tab 01/26/21 01/28/21 Rx Tamsulosin [Flomax] 0.4 mg PO PC-BRKFST 30 Days #30 01/26/21 01/28/21 Rx capsule Amiodarone [Cordarone] See Taper PO BID 01/28/21 01/28/21 History Allergies Allergy/AdvReac Type Severity Reaction Status Date / Time Penicillins Allergy Unknown Verified 01/28/21 17:40 codeine AdvReac Nausea & Verified 01/28/21 17:40 Vomiting Physical Exam Vitals: Vital Signs Temp Pulse Pulse Resp BP BP Pulse Ox 01/29/21 11:28 98.0 F 61 18 104/65 97 01/29/21 08:00 98.0 F 180 H 18 110/67 96 01/29/21 04:00 97.7 F 70 18 133/79 100 01/29/21 00:00 99.9 F H 57 L 61 16 103/57 107/57 99 01/28/21 21:00 68 22 110/57 99 01/28/21 19:33 72 18 142/87 100 01/28/21 13:32 98.0 F 67 18 132/76 99 Intake and Output 01/28/21 01/29/21 01/29/21 22:59 06:59 14:59 Intake Total 240 249.5 Output Total 200 675 Balance 40 -425.5 Intake: Intake, IV Titration 9.5 Amount Diltiazem 125 mg In 9.5 Sodium Chloride 0.9% 100 ml @ 5 MG/HR 5 mls/hr IV .Q24H [facility] Rx#:[id number] Oral 240 240 Output: Urine 200 675 Other: Voiding Method Indwelling Catheter Indwelling Catheter Weight 60 kg PHYSICAL EXAMINATION: GENERAL: The patient is alert and oriented x3, not in any acute distress. HEENT: Pupils are round and equally reacting to light. EOMI. No scleral icterus. No conjunctival pallor. Normocephalic, atraumatic. No pharyngeal erythema. No thyromegaly. CARDIOVASCULAR: S1 and S2 present. No murmurs, rubs, or gallops. PULMONARY: Bilateral breath sounds diminished at the lower lung bases. ABDOMEN: Soft, nontender, nondistended, normoactive bowel sounds. No palpable organomegaly. Leon catheter in place MUSCULOSKELETAL: No joint swelling or deformity. Left Hip surgical site looks dry and clean EXTREMITIES: No cyanosis, clubbing, or pedal edema. NEUROLOGICAL: Gross neurological examination did not reveal any focal deficits. SKIN: No rashes. Results CBC & Chem 7: 01/29/21 10:03 01/29/21 10:03 Labs: Abnormal Lab Results - Last 24 Hours (Table) 01/28/21 01/28/21 01/28/21 Range/Units 16:24 16:24 16:35 RBC 3.19 L (3.80-5.40) m/uL Hgb 10.0 L (11.4-16.0) gm/dL Hct 30.8 L (34.0-46.0) % Lymphocytes # (Manual) (1.0-4.8) k/uL Sodium 134 L (137-145) mmol/L Glucose 112 H (74-99) mg/dL Total Protein 5.4 L (6.3-8.2) g/dL Albumin 2.9 L (3.5-5.0) g/dL Urine Appearance Cloudy H (Clear) Urine Protein 1+ H (Negative) Urine Ketones Trace H (Negative) Urine Blood Large H (Negative) Ur Leukocyte Esterase Small H (Negative) Urine RBC >182 H (0-5) /hpf Urine WBC 30 H (0-5) /hpf Calcium Oxalate Crystal Moderate H (None) /hpf Urine Mucus Many H (None) /hpf 01/29/21 01/29/21 Range/Units 10:03 10:03 RBC 2.88 L (3.80-5.40) m/uL Hgb 9.4 L (11.4-16.0) gm/dL Hct 27.8 L (34.0-46.0) % Lymphocytes # (Manual) 0.44 L (1.0-4.8) k/uL Sodium 133 L (137-145) mmol/L Glucose 130 H (74-99) mg/dL Total Protein (6.3-8.2) g/dL Albumin (3.5-5.0) g/dL Urine Appearance (Clear) Urine Protein (Negative) Urine Ketones (Negative) Urine Blood (Negative) Ur Leukocyte Esterase (Negative) Urine RBC (0-5) /hpf Urine WBC (0-5) /hpf Calcium Oxalate Crystal (None) /hpf Urine Mucus (None) /hpf Microbiology - Last 24 Hours (Table) 01/28/21 16:35 Urine Culture - Preliminary Urine,Catheterized Thrombosis Risk Factor Assmnt - Choose All That Apply Each Factor Represents 1 point: History of prior major surgery (<1month) Each Risk Factor Represents 2 Points: Age 61-74 years Thrombosis Risk Factor Assessment Total Risk Factor Score: 3 Thrombosis Risk Factor Assessment Level: Moderate Risk Assessment and Plan Assessment: ASSESSMENT Loss of consciousness with abnormal movements-differentials include syncopal episode versus seizures Paroxysmal atrial fibrillation Recent left hip arthroplasty Hypertension Chronic anemia Hypovolemic hyponatremia Mild protein calorie malnutrition Possible UTI PLAN: Patient had a CT of the head that was negative for any acute intracranial hemorrhage, patient has history of atrial fibrillation could have, also syncopal episode by description of the episode. Patient had significant tachycardia with history of atrial fibrillation, currently on amiodarone and metoprolol. Cardiology and neurology consulted. Patient received a dose of ceftriaxone in the ED will be continued on it until final cultures are back. Will contact tomorrow to monitor CBC and electrolytes. Patient to be continued on Eliquis for anticoagulation. Patient's home medications have been restarted. Further recommendations to follow depending on the progress of the patient.
[2021-01-30] MEDS: LEVOTHYROXINE 75 MCG TAB PO SCH (05:55)
[2021-01-30] MEDS: SYMBICORT 80-4.5 MCG INHALER INHALATION SCH ×2 (07:15→20:36)
[2021-01-30] MEDS: METOPROLOL TARTRATE 50 MG TAB PO SCH ×2 (08:21→21:01)
[2021-01-30] MEDS: APIXABAN 5 MG TAB PO SCH ×2 (08:21→21:01)
[2021-01-30] MEDS: AMIODARONE 200 MG TAB PO SCH ×2 (08:21→21:01)
[2021-01-30] MEDS: EZETIMIBE 10 MG TAB PO SCH (08:22)
[2021-01-30] MEDS: ATORVASTATIN 10 MG TAB PO SCH (08:22)
[2021-01-30] MEDS: DILTIAZEM 125 MG in SODIUM CHLORIDE 0.9% 100 ML IV SCH (08:22)
[2021-01-30] MEDS: HYDROcodone/APAP 5-325MG 1 EACH TAB PO PRN ×2 (08:28→17:59)
[2021-01-30 10:56] LABS: Basophils % (A) 1 %; Eosinophils # (A) 0.1 k/uL (0-0.7); Eosinophils % (A) 2 %; HCT 26.2 % (34.0-46.0); HGB 8.8 gm/dL (11.4-16.0); Lymphocytes # (A) 0.7 k/uL (1.0-4.8); Lymphocytes % (A) 11 %; MCH 32.2 pg (25.0-35.0); MCHC 33.7 g/dL (31.0-37.0); MCV 95.5 fL (80.0-100.0); Mean Platelet Volume 7.6; Monocytes # (A) 0.2 k/uL (0-1.0); Monocytes % (A) 4 %; Neutrophils # (A) 5.1 k/uL (1.3-7.7); Neutrophils % (A) 82 %; Platelet Count 467 k/uL (150-450); RBC 2.75 m/uL (3.80-5.40); RDW 14.2 % (11.5-15.5); WBC 6.3 k/uL (3.8-10.6)
[2021-01-30] MEDS: TAMSULOSIN 0.4 MG CAP.ER.24H PO SCH (11:15)
[2021-01-30 11:21] LABS: African American GFR (CKD) >90 (>60 ml/min/1.73 sqM); Anion Gap 3 mmol/L; Blood Urea Nitrogen 15 mg/dL (7-17); Calcium 8.1 mg/dL (8.4-10.2); Carbon Dioxide 29 mmol/L (22-30); Chloride 99 mmol/L (98-107); Glucose 109 mg/dL (74-99); Magnesium 1.7 mg/dL (1.6-2.3); Non-African American GFR(CKD) 89 (>60 ml/min/1.73 sqM); Potassium 4.2 mmol/L (3.5-5.1); Sodium 131 mmol/L (137-145)
[2021-01-30] MEDS ORDERED: IPRATROPIUM-ALBUTEROL 3 ML NEB INHALATION PRN (11:22)
[2021-01-30] MEDS ORDERED: FUROSEMIDE 10 MG/ML 4 ML VIAL IV STA (11:22)
[2021-01-30] MEDS: IPRATROPIUM-ALBUTEROL 3 ML NEB INHALATION SCH ×3 (12:03→20:22)
--- NOTE | 2021-01-30 14:40 | P.CNPUL ---
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 Leigh and status post chemo and radiation, chronic dysphagia and hoarseness, COPD, former smoking history, past history of MRSA infection, and a recent history of left hip fracture after a fall, status post total left hip arthroplasty for displaced femoral neck fracture on 01/21/2021. Patient was discharged home on 01/26/2021. Patient given to the hospital on 01/28/2021 for a new onset seizure. Patient was performing physical therapy on the day of her presentation when she had a seizure. Patient stated that she was short of breath when she was walking with the assistance of a walker, she felt lightheaded, she dropped into a chair that her provided, and she did subsequently lose consciousness. Her eyes rolled back in her head and she had shaking of her bilateral hands. This seizure episode lasted for approximately 30 seconds before it resolved. She has no prior history of seizures. No history of head trauma or stroke, no headaches or visual changes, denied any fever or chills, no chest pain shortness of breath. No unilateral numbness or weakness. Brain CT showed no acute intracranial hemorrhage, midline shift or mass affect. Venous Doppler ultrasound of the left leg showed no evidence of DVT. Patient is on Eliquis for history of atrial fibrillation. EKG showed sinus rhythm with T-wave inversion in V2, V3, V4, V5 and V6. Labs on admission showed white blood cell count of 8.8, hemoglobin of 10, sodium of 134, potassium is 3.9, chloride is 102, CO2 is 27, B1 is 15, creatinine 0.6, glucose was 112, LFTs were within normal limits, troponin was less than 0.012, urinalysis showed evidence of urinary tract infection. COVID- 19 PCR was negative. EEG is pending, neurology is on the case. Chest x-ray was completed showing some blunting of the costophrenic angles, no hilar masses, no signs of mediastinal adenopathy, no heart failure. Review of Systems All systems: negative Constitutional: Denies chills, Denies fever Eyes: denies blurred vision, denies pain Ears, nose, mouth and throat: Denies headache, Denies sore throat Cardiovascular: Denies chest pain, Denies shortness of breath Respiratory: Denies cough Gastrointestinal: Denies abdominal pain, Denies diarrhea, Denies nausea, Denies vomiting Genitourinary: Denies dysuria, Denies hematuria Musculoskeletal: Denies myalgias Integumentary: Denies pruritus, Denies rash Neurological: Reports balance difficulties, Reports convulsions, Reports seizures, Denies numbness, Denies weakness Psychiatric: Denies anxiety, Denies depression Endocrine: Denies fatigue, Denies weight change Past Medical History Past Medical History: Atrial Fibrillation, Cancer, Chest Pain / Angina, COPD, Pneumonia Additional Past Medical History / Comment(s): Tracheal/Esophageal cancer diagnosed 10/2015- radiation and chemo, dysphagia, hoarseness, bronchitis, hemorrhoids. History of Any Multi-Drug Resistant Organisms: C-DIFF, MRSA Date of last positivie culture/infection: 01/24/2016 MDRO Source:: stool Past Surgical History: Orthopedic Surgery, Tubal Ligation Additional Past Surgical History / Comment(s): Cancerous polyps removed from throat 11/02/2015, PICC line insertion (since removed) to tx MRSA infection, mediport, colonoscopy with benign polypectomies. Left hip fracture repair 2020 Past Anesthesia/Blood Transfusion Reactions: No Reported Reaction Past Psychological History: Anxiety Additional Psychological History / Comment(s): Pt resides with her spouse. She is independent. She normally drives but not lately due to illness. Smoking Status: Former smoker Past Alcohol Use History: Occasional Additional Past Alcohol Use History / Comment(s): started smoking at age 19, was smoking 1/2-1. She quit smoking 10/14/15. Past Drug Use History: None Reported - Past Family History Father Family Medical History: Cancer Additional Family Medical History / Comment(s): bladder cancer Mother Family Medical History: Congestive Heart Failure (CHF) Medications and Allergies Home Medications Medication Instructions Recorded Confirmed Type Albuterol Sulfate [Albuterol 2 puff PO RT-Q4H PRN 01/20/21 01/28/21 History Sulfate Hfa] Apixaban [Eliquis] 5 mg PO BID 01/20/21 01/28/21 History Ezetimibe [Zetia] 10 mg PO DAILY 01/20/21 01/28/21 History Fluticasone Propion/Salmeterol 1 puff INHALATION RT-BID 01/20/21 01/28/21 History [Fluticasone-Salmeterol 250-50] Levothyroxine Sodium [Synthroid] 75 mcg PO DAILY 01/20/21 01/28/21 History Rosuvastatin Calcium 5 mg PO DAILY 01/20/21 01/28/21 History Doxycycline Monohydrate 100 mg PO BID 14 Days #28 cap 01/21/21 01/28/21 Rx HYDROcodone/APAP 5-325MG [[place] 1 tab PO Q6HR PRN 7 Days #28 tab 01/26/21 01/28/21 Rx 5-325] Metoprolol Tartrate [Lopressor] 50 mg PO BID 30 Days #60 tab 01/26/21 01/28/21 Rx Tamsulosin [Flomax] 0.4 mg PO PC-BRKFST 30 Days #30 01/26/21 01/28/21 Rx capsule Amiodarone [Cordarone] See Taper PO BID 01/28/21 01/28/21 History Allergies Allergy/AdvReac Type Severity Reaction Status Date / Time Penicillins Allergy Unknown Verified 01/28/21 17:40 codeine AdvReac Nausea & Verified 01/28/21 17:40 Vomiting Physical Exam Vitals: Vital Signs Temp Pulse Pulse Pulse Pulse Resp BP 01/30/21 03:51 97.9 F 65 16 113/59 01/30/21 00:00 97.8 F 64 16 104/52 01/29/21 20:00 98 F 80 80 75 18 01/29/21 16:00 98.0 F 67 18 106/56 01/29/21 15:35 01/29/21 14:00 61 18 01/29/21 11:28 98.0 F 61 18 104/65 BP BP BP Pulse Ox 01/30/21 03:51 99 01/30/21 00:00 96 01/29/21 20:00 119/56 103/51 116/55 95 01/29/21 16:00 96 01/29/21 15:35 97 01/29/21 14:00 01/29/21 11:28 97 Intake and Output 01/29/21 01/30/21 01/30/21 23:59 06:59 14:59 Intake Total Output Total Balance Intake: Oral Output: Urine Other: Voiding Method # Bowel Movements GENERAL EXAM: Alert, very pleasant, 70-year-old white female, a 2 L of oxygen a pulse ox of 99% comfortable in no apparent distress. HEAD: Normocephalic/atraumatic. EYES: Normal reaction of pupils, equal size. Conjunctiva pink, sclera white. NOSE: Clear with pink turbinates. THROAT: No erythema or exudates. NECK: No masses, no JVD, no thyroid enlargement, no adenopathy. CHEST: No chest wall deformity. Symmetrical expansion. LUNGS: Equal air entry with diminished breath sounds at the bases CVS: Regular rate and rhythm, normal S1 and S2, no gallops, no murmurs, no rubs ABDOMEN: Soft, nontender. No hepatosplenomegaly, normal bowel sounds, no guarding or rigidity. EXTREMITIES: No clubbing, , no cyanosis, 2+ pulses and upper and lower extremities. MUSCULOSKELETAL: Muscle strength and tone normal. SPINE: No scoliosis or deformity SKIN: No rashes CENTRAL NERVOUS SYSTEM: Alert and oriented -3. No focal deficits, tone is normal in all 4 extremities. PSYCHIATRIC: Alert and oriented -3. Appropriate affect. Intact judgment and insight. Results - Laboratory Findings CBC and BMP: 01/30/21 09:47 01/30/21 09:47 Abnormal lab findings: Abnormal Labs 01/28/21 01/28/21 01/28/21 16:24 16:24 16:35 RBC 3.19 L Hgb 10.0 L Hct 30.8 L Lymphocytes # (Manual) Sodium 134 L Glucose 112 H Total Protein 5.4 L Albumin 2.9 L Urine Appearance Cloudy H Urine Protein 1+ H Urine Ketones Trace H Urine Blood Large H Ur Leukocyte Esterase Small H Urine RBC >182 H Urine WBC 30 H Calcium Oxalate Crystal Moderate H Urine Mucus Many H 01/29/21 01/29/21 10:03 10:03 RBC 2.88 L Hgb 9.4 L Hct 27.8 L Lymphocytes # (Manual) 0.44 L Sodium 133 L Glucose 130 H Total Protein Albumin Urine Appearance Urine Protein Urine Ketones Urine Blood Ur Leukocyte Esterase Urine RBC Urine WBC Calcium Oxalate Crystal Urine Mucus - Diagnostic Findings Chest x-ray: report reviewed, image reviewed (Physical) Additional studies: EKG, CT of the brain, echocardiogram, chest x-ray reviewed Assessment and Plan Plan: Assessment: #1. Mild hypoxia, acute, related to small pleural effusions. COVID-19 PCR was negative. Patient is on 2 L of oxygen #2. New onset seizure, with loss of consciousness. Brain CT showed no acute abnormality. EEG is pending, neurology service is following #3. History of paroxysmal atrial fibrillation on Eliquis, currently in sinus mechanism #4. Recent left hip arthroplasty for displaced left femoral neck fracture on 01/21/2021 after a fall at home, discharged home on 01/26/2021 #5. Left leg swelling, lower extremity Doppler was negative for evidence of DVT #6. History of tracheal/esophageal cancer, with previous history of surgery and chemoradiation #7. History of COPD #8. Former history of smoking, currently in remission #9. Previous history of MRSA infection #10. Acute urinary tract infection Plan: We'll obtain a proBNP level Chest x-ray has been reviewed showing small bilateral pleural effusions The patient one-time dose of Lasix 40 mg Occupational breathing treatments Patient is not significantly hypoxic or dyspneic We'll continue to follow I performed a history & physical examination of the patient and discussed their management with my nurse practitioner, Sangeetha Plasencia. I reviewed the nurse practitioner's note and agree with the documented findings and plan of care. Lung sounds are positive for diminished breath sounds at bilateral bases throughout the lung huggins. The findings and the impression was discussed with the patient. I attest to the documentation by the nurse practitioner. Time with Patient: Greater than 30
--- NOTE | 2021-01-30 17:42 | P.PN ---
Subjective HISTORY OF PRESENTING ILLNESS Is a pleasant 70-year-old female with a recent left hip replacement, paroxysmal atrial fibrillation, tracheal cancer status post radiation and chemotherapy, previous tobacco abuse quit in 2016 who presents secondary to loss of consciousness with seizure-like activity. Patient was recently admitted with hip replacement last week and had somewhat prolonged recovery complicated by episodes of atrial fibrillation with RVR. Patient had been started on amiodarone as well as metoprolol and she been tolerating this well and then discharged. She was having frequent runs of A. fib with heart rates up to 130s. The amiodarone was new. Apparently she had done okay for approximately 2 days however then was doing some routine walking around the kitchen and showing her and physical therapist when she states she became somewhat lightheaded and then was looking like she was going to pass out and was being brought down into a chair when she started having seizure-like activity. Apparently this lasted for 20-30 seconds. Patient denies any prior history of anything similar. She did not hurt herself. Patient initially was noted to be in sinus rhythm on presentation with minimal ST changes in anterolateral leads however them was noted to be in A. fib with RVR this morning with heart rates 120s up to 160s. Patient states that during that episode she did not have any significant chest pain or pressure however did feel a fluttering. Denies any shortness breath. She was placed on a Cardizem drip as well as the home amiodarone and metoprolol and then converted back to sinus rhythm a few hours ago. 01/30/2021 Patient seen and examined. Patient states overall she has been feeling well. She has not been up walking around much however. She did have her Leon catheter taken out and denies any chest pain, pressure, shortness of breath. Sodium noted to be somewhat lower today. She did have episode of A. fib yesterday and then converted to normal sinus rhythm. She has had intermittent episodes of pauses of her poor quality telemetry at the time and highest up to 2.6 seconds. May be be missed PVCs. PHYSICAL EXAMINATION Vital signs reviewed. CONSTITUTIONAL: No apparent distress. HEENT: Head is normocephalic. Pupils are equal, round. Sclerae anicteric. Mucous membranes of the mouth are moist. No JVD. No carotid bruit. CHEST EXAMINATION: Lungs are clear to auscultation. No chest wall tenderness is noted on palpation or with deep breathing. HEART EXAMINATION: Regular rate and rhythm. S1, S2 heard. No murmurs, gallops or rub. ABDOMEN: Soft, nontender. Positive bowel sounds. EXTREMITIES: 2+ peripheral pulses, no lower extremity edema and no calf tenderness. NEUROLOGIC EXAMINATION: Patient is awake, alert and oriented x3. ASSESSMENT 1. Loss of consciousness with seizure-like activity likely related to syncope and then seizure related to hypoperfusional state 2. Paroxysmal atrial fibrillation, currently sinus rhythm 3. Hypertension 4. Recent hip surgery 5. Abnormal EKG PLAN Presentation concerning for syncope with possible cardiogenic source with recent addition of rate control and rhythm control medications. So far patient has been in A. fib and then converted to sinus rhythm with mild sinus bradycardia. There were a few episodes of what appeared to be pauses of up to 2.6 seconds however they also be artifact as only one lead was showing and poor quality. No other significant arrhythmias. No obvious need for permanent pacemaker however if patient does have significant tachybradycardia syndrome may consider pacemaker. May also consider more aggressive rhythm control such as ablation to attempt to control A. fib. If patient remains stable tomorrow lik ankit discharge home with 30 day event monitor. Objective - Vital Signs Vital signs: Vital Signs Temp 98.0 F 01/30/21 15:56 Pulse 68 01/30/21 16:02 Resp 18 01/30/21 15:56 BP 133/74 01/30/21 15:56 Pulse Ox 100 01/30/21 15:56 Intake & Output 01/29/21 01/30/21 01/30/21 19:59 06:59 18:59 Intake Total 236 Output Total 1650 Balance -1414 Intake: Intake, IV Titration Amount Diltiazem 125 mg In Sodium Chloride 0.9% 100 ml @ 5 MG/HR 5 mls/hr IV .Q24H [facility] Rx#:[id number] Oral 236 Output: Urine 1650 Other: Voiding Method External Catheter # Bowel Movements - Labs CBC & Chem 7: 01/30/21 09:47 01/30/21 09:47 Labs: Abnormal Lab Results - Last 24 Hours (Table) 01/30/21 01/30/21 Range/Units 09:47 09:47 RBC 2.75 L (3.80-5.40) m/uL Hgb 8.8 L (11.4-16.0) gm/dL Hct 26.2 L (34.0-46.0) % Plt Count 467 H (150-450) k/uL Lymphocytes # 0.7 L (1.0-4.8) k/uL Sodium 131 L (137-145) mmol/L Glucose 109 H (74-99) mg/dL Calcium 8.1 L (8.4-10.2) mg/dL Microbiology - Last 24 Hours (Table) 01/28/21 16:35 Urine Culture - Final Urine,Catheterized
--- NOTE | 2021-01-30 23:34 | P.PN ---
Subjective Progress Note Date: 01/30/21 Principal diagnosis: Syncope Ms. 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 Patient was recently in the hospital admitted for left hip replacement and discharged home. Patient was undergoing physical therapy when her and the physiotherapist noticed the patient had slumped on the chair and probably there was loss of consciousness for less than a minute. Patient states that she felt like she was passing out. She denied having any tongue bite. Patient had a Leon's catheter in place. She said she was immediately back to normal within few seconds to 1 minute. She was told that she was having tremors/seizure-like activity of her hands when she had this episode. Patient denied having any injuries related to this episode. At the time of admission patient's vital signs T-max of 99.9, heart rate 57, rest and reviewing her labs white count of 8.8, hemoglobin 10, platelets 418. Sodium 134, potassium 3.9, chloride 102, bicarb 27, BUN 15, creatinine 0.60. Urine analysis positive for blood beside Estrace 30 WBCs and many mucous cells. Coronavirus PCR is negative. Patient had a CT of the brain that was negative for any acute intracranial hemorrhage she also had an venous Doppler of her left lower extremity that is negative for DVT. EKG showing sinus rhythm chest x-ray bilateral pleural effusion which has significantly increased compared to recent exam. 01/30/2021-Patient is seen and examined at the bedside. Patient did convert into sinus rhythm yesterday and the Cardizem drip has been discontinued. Patient is comfortably lying in bed appears to be no acute distress. She denies having any chest pain or palpitations. Denies having any cough or difficulty breathing, no fevers chills or rigors. No abdominal pain nausea vomiting or diarrhea. Patient's wants a Leon's catheter to be discontinued and want to try a voiding trial. On reviewing the patient's vitals temperature of 97.9, heart rate 60, respiratory rate 18, blood pressure 113 x 64 saturating at 89% on room air. On reviewing the patient's labs white count of 6.3, hemoglobin 8.8, platelets 467. Sodium 131, potassium 4.2, chloride 99, bicarb 29, BUN 15, creatinine 0.66 Patient medications have been reviewed Active Medications Hydrocodone Bitart/Acetaminophen (Hydrocodone/Apap 5-325mg 1 Each Tab) 1 each PO Q6HR PRN PRN Reason: Pain Last Admin: 01/30/21 17:59 Dose: 1 each Documented by: Albuterol/Ipratropium (Ipratropium-Albuterol 3 Ml Neb) 3 ml INHALATION RT-QID [facility] Last Admin: 01/30/21 20:22 Dose: 3 ml Documented by: Albuterol/Ipratropium (Ipratropium-Albuterol 3 Ml Neb) 3 ml INHALATION RT-Q2H PRN PRN Reason: Shortness Of Breath Or Wheezing Amiodarone HCl (Amiodarone 200 Mg Tab) 200 mg PO BID [facility] Last Admin: 01/30/21 21:01 Dose: 200 mg Documented by: Apixaban (Apixaban 5 Mg Tab) 5 mg PO BID [facility]; Protocol Last Admin: 01/30/21 21:01 Dose: 5 mg Documented by: Atorvastatin Calcium (Atorvastatin 10 Mg Tab) 10 mg PO DAILY [facility] Last Admin: 01/30/21 08:22 Dose: 10 mg Documented by: Budesonide/Formoterol Fumarate (Symbicort 80-4.5 Mcg Inhaler) 2 puff INHALATION RT-BID [facility] Last Admin: 01/30/21 20:36 Dose: 2 puff Documented by: Ezetimibe (Ezetimibe 10 Mg Tab) 10 mg PO DAILY [facility] Last Admin: 01/30/21 08:22 Dose: 10 mg Documented by: Diltiazem HCl 125 mg/ Sodium (Chloride) 125 mls @ 5 mls/hr IV .Q24H [facility] Last Admin: 01/30/21 08:22 Dose: Not Given Documented by: Levothyroxine Sodium (Levothyroxine 75 Mcg Tab) 75 mcg PO DAILY@0630 [facility] Last Admin: 01/30/21 05:55 Dose: 75 mcg Documented by: Metoprolol Tartrate (Metoprolol Tartrate 50 Mg Tab) 50 mg PO BID [facility] Last Admin: 01/30/21 21:01 Dose: 50 mg Documented by: Naloxone HCl (Naloxone 0.4 Mg/Ml 1 Ml Vial) 0.2 mg IV Q2M PRN PRN Reason: Opioid Reversal Tamsulosin HCl (Tamsulosin 0.4 Mg Cap.Er.24h) 0.4 mg PO PC-BRKFST [facility] Last Admin: 01/30/21 11:15 Dose: 0.4 mg Documented by: Objective - Vital Signs Vital signs: Vital Signs Temp 98.1 F 01/30/21 08:00 Pulse 77 01/30/21 08:00 Resp 18 01/30/21 08:00 BP 111/66 01/30/21 08:00 Pulse Ox 94 L 01/30/21 08:00 Intake & Output 01/29/21 01/30/21 01/30/21 19:59 06:59 18:59 Intake Total 118 Output Total Balance 118 Intake: Intake, IV Titration Amount Diltiazem 125 mg In Sodium Chloride 0.9% 100 ml @ 5 MG/HR 5 mls/hr IV .Q24H [facility] Rx#:[id number] Oral 118 Output: Urine Other: Voiding Method Indwelling Catheter # Bowel Movements - Exam PHYSICAL EXAMINATION: GENERAL: The patient is alert and oriented x3, not in any acute distress. HEENT: Pupils are round and equally reacting to light. EOMI. No scleral icterus. No conjunctival pallor. CARDIOVASCULAR: S1 and S2 present. No murmurs, rubs, or gallops. PULMONARY: Bilateral breath sounds diminished at the lower lung bases. ABDOMEN: Soft, nontender, nondistended, normoactive bowel sounds. No palpable organomegaly. MUSCULOSKELETAL: No joint swelling or deformity. Left Hip surgical site looks dry and clean EXTREMITIES: No cyanosis, clubbing, or pedal edema. NEUROLOGICAL: Gross neurological examination did not reveal any focal deficits. SKIN: No rashes - Labs CBC & Chem 7: 01/30/21 09:47 01/30/21 09:47 Labs: Abnormal Lab Results - Last 24 Hours (Table) 01/30/21 01/30/21 Range/Units 09:47 09:47 RBC 2.75 L (3.80-5.40) m/uL Hgb 8.8 L (11.4-16.0) gm/dL Hct 26.2 L (34.0-46.0) % Plt Count 467 H (150-450) k/uL Lymphocytes # 0.7 L (1.0-4.8) k/uL Sodium 131 L (137-145) mmol/L Glucose 109 H (74-99) mg/dL Calcium 8.1 L (8.4-10.2) mg/dL Assessment and Plan Assessment: ASSESSMENT Loss of consciousness with abnormal movements-differentials include syncopal episode versus seizures Paroxysmal atrial fibrillation Recent left hip arthroplasty Hypertension Chronic anemia Hypovolemic hyponatremia Mild protein calorie malnutrition Possible UTI PLAN: Patient converted into sinus rhythm yesterday evening. Patient was continued on ceftriaxone for concerns of UTI. Urine culture showing no growth so ceftriaxone has been discontinued. Patient's Leon's catheter has been discontinued and will give her a trial of voiding. Patient to be continued on Eliquis for anticoagulation. Patient's home medications have been restarted. Further recommendations to follow depending on the progress of the patient.
[2021-01-31] MEDS: LEVOTHYROXINE 75 MCG TAB PO SCH (03:56)
[2021-01-31] MEDS: HYDROcodone/APAP 5-325MG 1 EACH TAB PO PRN ×2 (03:56→19:58)
[2021-01-31] MEDS: EZETIMIBE 10 MG TAB PO SCH (07:48)
[2021-01-31] MEDS: TAMSULOSIN 0.4 MG CAP.ER.24H PO SCH (07:48)
[2021-01-31] MEDS: AMIODARONE 200 MG TAB PO SCH ×2 (07:48→19:59)
[2021-01-31] MEDS: APIXABAN 5 MG TAB PO SCH ×2 (07:48→19:59)
[2021-01-31] MEDS: METOPROLOL TARTRATE 50 MG TAB PO SCH ×2 (07:48→19:59)
[2021-01-31] MEDS: ATORVASTATIN 10 MG TAB PO SCH (07:48)
[2021-01-31 08:32] LABS: Basophils % (A) 0 %; Eosinophils # (A) 0.1 k/uL (0-0.7); Eosinophils % (A) 2 %; HCT 31.2 % (34.0-46.0); HGB 10.2 gm/dL (11.4-16.0); Hypochromasia Slight; Lymphocytes # (A) 0.8 k/uL (1.0-4.8); Lymphocytes % (A) 11 %; MCH 32.1 pg (25.0-35.0); MCHC 32.9 g/dL (31.0-37.0); MCV 97.7 fL (80.0-100.0); Mean Platelet Volume 7.6; Monocytes # (A) 0.2 k/uL (0-1.0); Monocytes % (A) 4 %; Neutrophils # (A) 5.4 k/uL (1.3-7.7); Neutrophils % (A) 82 %; Platelet Count 491 k/uL (150-450); RBC 3.19 m/uL (3.80-5.40); RDW 13.7 % (11.5-15.5); WBC 6.6 k/uL (3.8-10.6)
[2021-01-31 08:43] LABS: African American GFR (CKD) >90 (>60 ml/min/1.73 sqM); Anion Gap 5 mmol/L; Blood Urea Nitrogen 12 mg/dL (7-17); Calcium 9.1 mg/dL (8.4-10.2); Carbon Dioxide 32 mmol/L (22-30); Chloride 95 mmol/L (98-107); Glucose 155 mg/dL (74-99); Non-African American GFR(CKD) 82 (>60 ml/min/1.73 sqM); Potassium 4.6 mmol/L (3.5-5.1); Sodium 132 mmol/L (137-145)
[2021-01-31] MEDS: IPRATROPIUM-ALBUTEROL 3 ML NEB INHALATION SCH ×4 (09:11→20:51)
[2021-01-31] MEDS: SYMBICORT 80-4.5 MCG INHALER INHALATION SCH ×2 (09:11→20:51)
[2021-01-31] MEDS ORDERED: FUROSEMIDE 10 MG/ML 4 ML VIAL IV STA (11:31)
--- NOTE | 2021-01-31 11:32 | P.PN ---
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 Leigh and status post chemo and radiation, chronic dysphagia and hoarseness, COPD, former smoking history, past history of MRSA infection, and a recent history of left hip fracture after a fall, status post total left hip arthroplasty for displaced femoral neck fracture on 01/21/2021. Patient was discharged home on 01/26/2021. Patient given to the hospital on 01/28/2021 for a new onset seizure. Patient was performing physical therapy on the day of her presentation when she had a seizure. Patient stated that she was short of breath when she was walking with the assistance of a walker, she felt lightheaded, she dropped into a chair that her provided, and she did subsequently lose consciousness. Her eyes rolled back in her head and she had shaking of her bilateral hands. This seizure episode lasted for approximately 30 seconds before it resolved. She has no prior history of seizures. No history of head trauma or stroke, no headaches or visual changes, denied any fever or chills, no chest pain shortness of breath. No unilateral numbness or weakness. Brain CT showed no acute intracranial hemorrhage, midline shift or mass affect. Venous Doppler ultrasound of the left leg showed no evidence of DVT. Patient is on Eliquis for history of atrial fibrillation. EKG showed sinus rhythm with T-wave inversion in V2, V3, V4, V5 and V6. Labs on admission showed white blood cell count of 8.8, hemoglobin of 10, sodium of 134, potassium is 3.9, chloride is 102, CO2 is 27, B1 is 15, creatinine 0.6, glucose was 112, LFTs were within normal limits, troponin was less than 0.012, urinalysis showed evidence of urinary tract infection. COVID-19 PCR was negative. EEG is p ending, neurology is on the case. Chest x-ray was completed showing some blunting of the costophrenic angles, no hilar masses, no signs of mediastinal adenopathy, no heart failure. On 01/31/2021, the patient is being seen for a follow-up. The patient is doing well for now. She is on oxygen at 2 L per minute nasal cannula. She was given a dose of diuretics yesterday. The patient received a one-time dose of Lasix 40 mg IV push. Her previous echocardiogram that was done on 01/24/2021 showed an ejection fraction of 60% with mild pulmonary hypertension, no significant valvular abnormalities. There was borderline concentric LVH. The patient diuresed. She made 1.6 L of urine output. I'm going to be given another dose of diuretics and repeat the chest x-ray in the morning. Meanwhile, electrolytes are all stable. Renal function stable with a creatinine of 0.7, sodium is 132, proBNP level was 5160 and a procal LEVEL IS AT 0.05. Objective - Vital Signs Vital signs: Vital Signs Temp 97.8 F 01/31/21 04:00 Pulse 58 L 01/31/21 04:00 Resp 18 01/31/21 04:00 BP 112/66 01/31/21 04:00 Pulse Ox 98 01/31/21 04:00 Intake & Output 01/30/21 01/31/21 01/31/21 18:59 06:59 18:59 Intake Total 354 600 120 Output Total 1650 Balance -1296 600 120 Weight 59 kg Intake: Oral 354 600 120 Output: Urine 1650 Other: Voiding Method External Catheter # Voids 2 # Bowel Movements 0 - Exam GENERAL EXAM: Alert, very pleasant, 70-year-old white female, a 2 L of oxygen a pulse ox of 99% comfortable in no apparent distress. HEAD: Normocephalic/atraumatic. EYES: Normal reaction of pupils, equal size. Conjunctiva pink, sclera white. NOSE: Clear with pink turbinates. THROAT: No erythema or exudates. NECK: No masses, no JVD, no thyroid enlargement, no adenopathy. CHEST: No chest wall deformity. Symmetrical expansion. LUNGS: Equal air entry with diminished breath sounds at the bases CVS: Regular rate and rhythm, normal S1 and S2, no gallops, no murmurs, no rubs ABDOMEN: Soft, nontender. No hepatosplenomegaly, normal bowel sounds, no guarding or rigidity. EXTREMITIES: No clubbing, , no cyanosis, 2+ pulses and upper and lower extremities. MUSCULOSKELETAL: Muscle strength and tone normal. SPINE: No scoliosis or deformity SKIN: No rashes CENTRAL NERVOUS SYSTEM: Alert and oriented -3. No focal deficits, tone is normal in all 4 extremities. PSYCHIATRIC: Alert and oriented -3. Appropriate affect. Intact judgment and insight. - Labs CBC & Chem 7: 01/31/21 08:08 01/31/21 08:08 Labs: Abnormal Lab Results - Last 24 Hours (Table) 01/31/21 01/31/21 Range/Units 08:08 08:08 RBC 3.19 L (3.80-5.40) m/uL Hgb 10.2 L (11.4-16.0) gm/dL Hct 31.2 L (34.0-46.0) % Plt Count 491 H (150-450) k/uL Lymphocytes # 0.8 L (1.0-4.8) k/uL Sodium 132 L (137-145) mmol/L Chloride 95 L (98-107) mmol/L Carbon Dioxide 32 H (22-30) mmol/L Glucose 155 H (74-99) mg/dL Microbiology - Last 24 Hours (Table) 01/28/21 16:35 Urine Culture - Final Urine,Catheterized Assessment and Plan Plan: #1. Mild hypoxia, acute, related to small pleural effusions. COVID-19 PCR was negative. Patient is on 2 L of oxygen, the patient responded to diuretics. We'll give another dose of Lasix and repeat a chest x-ray in the morning #2. New onset seizure, with loss of consciousness. Brain CT showed no acute abnormality. EEG is pending, neurology service is following #3. History of paroxysmal atrial fibrillation on Eliquis, currently in sinus mechanism #4. Recent left hip arthroplasty for displaced left femoral neck fracture on 01/21/2021 after a fall at home, discharged home on 01/26/2021 #5. Left leg swelling, lower extremity Doppler was negative for evidence of DVT #6. History of tracheal/esophageal cancer, with previous history of surgery and chemoradiation #7. History of COPD #8. Former history of smoking, currently in remission #9. Previous history of MRSA infection #10. Acute urinary tract infection Plan: The proBNP level was elevated. Echocardiac Luis Angel was noted. No significant LV dysfunction. We'll give an additional dose of Lasix and repeat a chest x-ray in the morning. Patient is not significantly hypoxic or dyspneic We'll continue to follow
[2021-01-31] MEDS: DILTIAZEM 125 MG in SODIUM CHLORIDE 0.9% 100 ML IV SCH (12:14)
--- NOTE | 2021-01-31 12:23 | EEG ---
ELECTROENCEPHALOGRAM REPORT DATE OF SERVICE: 01/31/2021 CLINICAL HISTORY: This is a 70-year-old woman with a syncopal episode. The video EEG is obtained to evaluate for seizure epileptiform activity. RELEVANT MEDICATION: The patient is not on any antiepileptic drugs. EEG TYPE: A routine 21-channel EEG is performed with video using the 10/20 electrode placement system. DESCRIPTION: Wakefulness is only obtained. During wakefulness, there is a posterior-dominant rhythm of low to moderate voltage that is well modulated and well sustained of 10 to 10.5 hertz activity. There is no sleep architecture seen. There is no focal slowing. Interictal and ictal is none. ACTIVATION PROCEDURE: Photic stimulation did not evoke a posterior driving response. There is no abnormality during the photic stimulation. Hyperventilation is not performed. CLINICAL INTERPRETATION: This is a normal routine EEG. There are no focal slowing, epileptiform discharge or seizure on the EEG. Clinical correlation is recommended. NEREIDA / JOE: [id number] / MTDD
--- NOTE | 2021-01-31 13:32 | P.PN ---
Subjective Progress Note Date: 01/31/21 I am seeing the patient for the first time for neurological management. Please refer to Dr. Tavares's note for further details. Patient denies any further syncopal episodes. She states she is doing better. She denies history of seizures. Objective - Vital Signs Vital signs: Vital Signs Temp 98.1 F 01/31/21 12:15 Pulse 64 01/31/21 12:15 Resp 18 01/31/21 12:15 BP 105/61 01/31/21 12:15 Pulse Ox 98 01/31/21 12:15 Intake & Output 01/30/21 01/31/21 01/31/21 18:59 06:59 18:59 Intake Total 354 600 130 Output Total 1650 450 Balance -1296 600 -320 Weight 59 kg Intake: IV 10 Invasive Line 2 10 Oral 354 600 120 Output: Urine 1650 450 Other: Voiding Method External Catheter External Catheter # Voids 2 3 # Bowel Movements 0 - Exam GENERAL: The patient is sitting on side of bed and is not in acute distress. NEUROLOGICAL: Higher mental function: The patient is awake, alert, oriented to self, place and time. Patient is following commands. No aphasia and no neglect. Cranial nerves: The pupils are round, equal and reactive to light and accommodation. Visual huggins are full to confrontation throughout. Extraocular movement is intact no nystagmus is noted. Facial sensation is normal to touch throughout. The facial strength is normal throughout. Hearing is normal bilaterally to hand rub. Tongue is midline and moved [id number] without any difficulty. No dysarthria is noted. Shoulder shrug is normal bilaterally. Motor: The strength is 5 over 5 throughout. Normal tone and bulk. Cerebellum: Normal finger to nose heel to galeano bilaterally. Sensation: Sensation is normal to touch throughout. ORTHOSTATIC: Supine his blood pressure of 119/71 with a heart rate of 65 sitting is 106/57 with a heart rate of 75 and standing is 105/55 with a heart rate of 84. Orthostatic is negative. Brain CT showed no acute abnormality. - Labs CBC & Chem 7: 01/31/21 08:08 01/31/21 08:08 Labs: Abnormal Lab Results - Last 24 Hours (Table) 01/31/21 01/31/21 Range/Units 08:08 08:08 RBC 3.19 L (3.80-5.40) m/uL Hgb 10.2 L (11.4-16.0) gm/dL Hct 31.2 L (34.0-46.0) % Plt Count 491 H (150-450) k/uL Lymphocytes # 0.8 L (1.0-4.8) k/uL Sodium 132 L (137-145) mmol/L Chloride 95 L (98-107) mmol/L Carbon Dioxide 32 H (22-30) mmol/L Glucose 155 H (74-99) mg/dL Microbiology - Last 24 Hours (Table) 01/28/21 16:35 Urine Culture - Final Urine,Catheterized Assessment and Plan Assessment: Loss of consciousness with abnormal movements, likely secondary to convulsive syncope. History of atrial fibrillation on Eliquis Recent left hip replacement Mild hypoxia with acute small pleural effusion Acute urinary tract infection History of tracheal/esophageal cancer with a history of chemoradiation Former history of smoking Plan: Routine EEG on 01/31/2021: Preliminary result is normal. If the patient continues to have syncopal episodes as inpatient recommend prol onged EEG. If not can consider outpatient ambulatory EEG if any further episodes. Patient opted out of getting MRI Brain and will consider it as outpatient for seizure protocol. Continue physical therapy for strengthening Cardiology team is on board. Pulmonary team is on board. We'll defer the rest of the medical measure the primary team She was notified that the per the [place] DMV because of the patient's episode of syncope with loss of consciousness she is to avoid driving for 6 month until no further episodes appear to avoid heights, swimming unassisted or use heavy machinery. Upon discharge the patient needs to follow-up with a neurologist within 1-2 weeks. Plan discussed with the patient as well as her nurse. Please notify neurology if any further concerns. Sanchez Pina M.D. Neuro-hospitalist Time with Patient: Less than 30
--- NOTE | 2021-01-31 14:42 | P.PN ---
Subjective Progress Note Date: 01/31/21 HISTORY OF PRESENTING ILLNESS Is a pleasant 70-year-old female with a recent left hip replacement, paroxysmal atrial fibrillation, tracheal cancer status post radiation and chemotherapy, previous tobacco abuse quit in 2016 who presents secondary to loss of consciousness with seizure-like activity. Patient was recently admitted with hip replacement last week and had somewhat prolonged recovery complicated by episodes of atrial fibrillation with RVR. Patient had been started on amiodarone as well as metoprolol and she been tolerating this well and then discharged. She was having frequent runs of A. fib with heart rates up to 130s. The amiodarone was new. Apparently she had done okay for approximately 2 days however then was doing some routine walking around the kitchen and showing her and physical therapist when she states she became somewhat lightheaded and then was looking like she was going to pass out and was being brought down into a chair when she started having seizure-like activity. Apparently this lasted for 20-30 seconds. Patient denies any prior history of anything similar. She did not hurt herself. Patient initially was noted to be in sinus rhythm on presentation with minimal ST changes in anterolateral leads however them was noted to be in A. fib with RVR this morning with heart rates 120s up to 160s. Patient states that during that episode she did not have any significant chest pain or pressure however did feel a fluttering. Denies any shortness breath. She was placed on a Cardizem drip as well as the home amiodarone and metoprolol and then converted back to sinus rhythm a few hours ago. 01/30/2021 Patient seen and examined. Patient states overall she has been feeling well. She has not been up walking around much however. She did have her Leon catheter taken out and denies any chest pain, pressure, shortness of breath. Sodium noted to be somewhat lower today. She did have episode of A. fib yesterday and then converted to normal sinus rhythm. She has had intermittent episodes of pauses of her poor quality telemetry at the time and highest up to 2.6 seconds. May be be missed PVCs. 01/31/2021 Patient examined at the bedside. Patient denies chest pain or pressure. Denies SOB. Patient was afib RVR this morning. She received her morning medications and converted back to sinus mechanism. PHYSICAL EXAMINATION Vital signs reviewed. CONSTITUTIONAL: No apparent distress. HEENT: Head is normocephalic. Pupils are equal, round. Sclerae anicteric. Mucous membranes of the mouth are moist. No JVD. No carotid bruit. CHEST EXAMINATION: Lungs are clear to auscultation. No chest wall tenderness is noted on palpation or with deep breathing. HEART EXAMINATION: Regular rate and rhythm. S1, S2 heard. No murmurs, gallops or rub. ABDOMEN: Soft, nontender. Positive bowel sounds. EXTREMITIES: 2+ peripheral pulses, no lower extremity edema and no calf tenderness. NEUROLOGIC EXAMINATION: Patient is awake, alert and oriented x3. ASSESSMENT 1. Loss of consciousness with seizure-like activity likely related to syncope and then seizure related to hypoperfusional state 2. Paroxysmal atrial fibrillation, currently sinus rhythm 3. Hypertension 4. Recent hip surgery 5. Abnormal EKG PLAN Continue current cardiac medications Continue telemetry monitoring Further recommendations pending patient course Nurse practitioner note has been reviewed by physician. Signing provider agrees with the documented findings, assessment, and plan of care. Objective - Vital Signs Vital signs: Vital Signs Temp 98.1 F 01/31/21 12:15 Pulse 60 01/31/21 12:24 Resp 18 01/31/21 12:15 BP 105/61 01/31/21 12:15 Pulse Ox 98 01/31/21 12:15 Intake & Output 01/30/21 01/31/21 01/31/21 18:59 06:59 18:59 Intake Total 354 600 250 Output Total 1650 450 Balance -1296 600 -200 Weight 59 kg Intake: IV 10 Invasive Line 2 10 Oral 354 600 240 Output: Urine 1650 450 Other: Voiding Method External Catheter External Catheter # Voids 2 3 # Bowel Movements 0 - Labs CBC & Chem 7: 01/31/21 08:08 01/31/21 08:08 Labs: Abnormal Lab Results - Last 24 Hours (Table) 01/31/21 01/31/21 Range/Units 08:08 08:08 RBC 3.19 L (3.80-5.40) m/uL Hgb 10.2 L (11.4-16.0) gm/dL Hct 31.2 L (34.0-46.0) % Plt Count 491 H (150-450) k/uL Lymphocytes # 0.8 L (1.0-4.8) k/uL Sodium 132 L (137-145) mmol/L Chloride 95 L (98-107) mmol/L Carbon Dioxide 32 H (22-30) mmol/L Glucose 155 H (74-99) mg/dL Microbiology - Last 24 Hours (Table) 01/28/21 16:35 Urine Culture - Final Urine,Catheterized
--- NOTE | 2021-02-01 02:22 | P.PN ---
Subjective Progress Note Date: 01/31/21 Principal diagnosis: Syncope Ms. 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 Patient was recently in the hospital admitted for left hip replacement and discharged home. Patient was undergoing physical therapy when her and the physiotherapist noticed the patient had slumped on the chair and probably there was loss of consciousness for less than a minute. Patient states that she felt like she was passing out. She denied having any tongue bite. Patient had a Leon's catheter in place. She said she was immediately back to normal within few seconds to 1 minute. She was told that she was having tremors/seizure-like activity of her hands when she had this episode. Patient denied having any injuries related to this episode. At the time of admission patient's vital signs T-max of 99.9, heart rate 57, rest and reviewing her labs white count of 8.8, hemoglobin 10, platelets 418. Sodium 134, potassium 3.9, chloride 102, bicarb 27, BUN 15, creatinine 0.60. Urine analysis positive for blood beside Estrace 30 WBCs and many mucous cells. Coronavirus PCR is negative. Patient had a CT of the brain that was negative for any acute intracranial hemorrhage she also had an venous Doppler of her left lower extremity that is negative for DVT. EKG showing sinus rhythm chest x-ray bilateral pleural effusion which has significantly increased compared to recent exam. 01/30/2021-Patient is seen and examined at the bedside. Patient did convert into sinus rhythm yesterday and the Cardizem drip has been discontinued. Patient is comfortably lying in bed appears to be no acute distress. She denies having any chest pain or palpitations. Denies having any cough or difficulty breathing, no fevers chills or rigors. No abdominal pain nausea vomiting or diarrhea. Patient's wants a Leon's catheter to be discontinued and want to try a voiding trial. On reviewing the patient's vitals temperature of 97.9, heart rate 60, respiratory rate 18, blood pressure 113 x 64 saturating at 89% on room air. On reviewing the patient's labs white count of 6.3, hemoglobin 8.8, platelets 467. Sodium 131, potassium 4.2, chloride 99, bicarb 29, BUN 15, creatinine 0.66 On 01/31/2021 Patient seen and examined at bedside. Patient has no active complaints. Her Leon's catheter has been discontinued and she is voiding without any trouble. Patient denied having any chest pain palpitations or syncopal episodes. No cough or difficulty breathing. On reviewing the patient's vitals temperature of 98.1, heart rate 64, respiratory rate 18, blood pressure 105/ 61 and saturating at 98% on 2 L of nasal cannula. Patient's labs reviewed white count of 6.6 hemoglobin 10.2, platelets 491. Sodium 132 potassium 4.6 chloride 95 bicarb 32 BUN 12 creatinine 0.74. On reviewing her medication patient continues to be on Eliquis for anticoagulation and amiodarone for A. fib Objective - Vital Signs Vital signs: Vital Signs Temp 97.8 F 01/31/21 04:00 Pulse 58 L 01/31/21 04:00 Resp 18 01/31/21 04:00 BP 112/66 01/31/21 04:00 Pulse Ox 98 01/31/21 04:00 Intake & Output 01/30/21 01/31/21 01/31/21 18:59 06:59 18:59 Intake Total 354 600 120 Output Total 1650 Balance -1296 600 120 Weight 59 kg Intake: Oral 354 600 120 Output: Urine 1650 Other: Voiding Method External Catheter # Voids 2 # Bowel Movements 0 - Exam PHYSICAL EXAMINATION: GENERAL: The patient is alert and oriented x3, not in any acute distress. HEENT: Pupils are round and equally reacting to light. EOMI. No scleral icterus. No conjunctival pallor. CARDIOVASCULAR: S1 and S2 present. No murmurs, rubs, or gallops. PULMONARY: Bilateral breath sounds diminished at the lower lung bases. ABDOMEN: Soft, nontender, nondistended, normoactive bowel sounds. No palpable organomegaly. MUSCULOSKELETAL: No joint swelling or deformity. Left Hip surgical site looks dry and clean EXTREMITIES: No cyanosis, clubbing, or pedal edema. NEUROLOGICAL: Gross neurological examination did not reveal any focal deficits. - Labs CBC & Chem 7: 01/31/21 08:08 01/31/21 08:08 Labs: Abnormal Lab Results - Last 24 Hours (Table) 01/31/21 01/31/21 Range/Units 08:08 08:08 RBC 3.19 L (3.80-5.40) m/uL Hgb 10.2 L (11.4-16.0) gm/dL Hct 31.2 L (34.0-46.0) % Plt Count 491 H (150-450) k/uL Lymphocytes # 0.8 L (1.0-4.8) k/uL Sodium 132 L (137-145) mmol/L Chloride 95 L (98-107) mmol/L Carbon Dioxide 32 H (22-30) mmol/L Glucose 155 H (74-99) mg/dL Microbiology - Last 24 Hours (Table) 01/28/21 16:35 Urine Culture - Final Urine,Catheterized Assessment and Plan Assessment: ASSESSMENT Loss of consciousness with abnormal movements-differentials include syncopal episode versus seizures Paroxysmal atrial fibrillation Recent left hip arthroplasty Hypertension Chronic anemia Hypovolemic hyponatremia Mild protein calorie malnutrition Possible UTI PLAN: Patient converted into sinus rhythm , now on Amiodarone Urine culture showing no growth so ceftriaxone has been discontinued. Patient's Leon's catheter has been discontinued and she is voiding by herself . Patient to be continued on Eliquis for anticoagulation. Neurology suggested MRI, but pt differed it as OP Discussed about [place] driving law Further recommendations to follow depending on the progress of the patient.
[2021-02-01] MEDS: LEVOTHYROXINE 75 MCG TAB PO SCH (05:56)
--- NOTE | 2021-02-01 08:23 | XR ---
EXAMINATION TYPE: XR chest 1V portable DATE OF EXAM: 02/01/2021 CLINICAL HISTORY: Difficulty breathing and pleural effusions progress study. TECHNIQUE: Single AP portable upright view of the chest is obtained. COMPARISON: Chest x-ray from 3 days earlier FINDINGS: Stable small bilateral pleural effusions. Stable mild cardiomegaly. Persistent mild chroni c parenchymal changes without new focal airspace opacity or pneumothorax. Patient remains slightly ro tated to the right. Osseous structures remain demineralized. IMPRESSION: Mild cardiomegaly with small bilateral pleural effusions remain present. No significant c hange from most recent x-ray.
[2021-02-01 08:29] LABS: African American GFR (CKD) >90 (>60 ml/min/1.73 sqM); Anion Gap 4 mmol/L; Blood Urea Nitrogen 12 mg/dL (7-17); Calcium 8.9 mg/dL (8.4-10.2); Carbon Dioxide 33 mmol/L (22-30); Chloride 97 mmol/L (98-107); Glucose 114 mg/dL (74-99); Non-African American GFR(CKD) 87 (>60 ml/min/1.73 sqM); Potassium 4.9 mmol/L (3.5-5.1); Sodium 134 mmol/L (137-145)
[2021-02-01] MEDS: IPRATROPIUM-ALBUTEROL 3 ML NEB INHALATION SCH ×4 (08:38→20:22)
[2021-02-01] MEDS: SYMBICORT 80-4.5 MCG INHALER INHALATION SCH ×2 (08:39→20:22)
[2021-02-01] MEDS: ATORVASTATIN 10 MG TAB PO SCH (08:49)
[2021-02-01] MEDS: AMIODARONE 200 MG TAB PO SCH ×2 (08:49→19:59)
[2021-02-01] MEDS: METOPROLOL TARTRATE 50 MG TAB PO SCH ×2 (08:49→19:59)
[2021-02-01] MEDS: TAMSULOSIN 0.4 MG CAP.ER.24H PO SCH (08:49)
[2021-02-01] MEDS: APIXABAN 5 MG TAB PO SCH ×2 (08:49→19:59)
[2021-02-01] MEDS: EZETIMIBE 10 MG TAB PO SCH (08:50)
--- NOTE | 2021-02-01 13:03 | P.PN ---
Subjective Progress Note Date: 02/01/21 HISTORY OF PRESENTING ILLNESS Is a pleasant 70-year-old female with a recent left hip replacement, paroxysmal atrial fibrillation, tracheal cancer status post radiation and chemotherapy, previous tobacco abuse quit in 2016 who presents secondary to loss of consciousness with seizure-like activity. Patient was recently admitted with hip replacement last week and had somewhat prolonged recovery complicated by episodes of atrial fibrillation with RVR. Patient had been started on amiodarone as well as metoprolol and she been tolerating this well and then discharged. She was having frequent runs of A. fib with heart rates up to 130s. The amiodarone was new. Apparently she had done okay for approximately 2 days however then was doing some routine walking around the kitchen and showing her and physical therapist when she states she became somewhat lightheaded and then was looking like she was going to pass out and was being brought down into a chair when she started having seizure-like activity. Apparently this lasted for 20-30 seconds. Patient denies any prior history of anything similar. She did not hurt herself. Patient initially was noted to be in sinus rhythm on presentation with minimal ST changes in anterolateral leads however them was noted to be in A. fib with RVR this morning with heart rates 120s up to 160s. Patient states that during that episode she did not have any significant chest pain or pressure however did feel a fluttering. Denies any shortness breath. She was placed on a Cardizem drip as well as the home amiodarone and metoprolol and then converted back to sinus rhythm a few hours ago. 01/30/2021 Patient seen and examined. Patient states overall she has been feeling well. She has not been up walking around much however. She did have her Leon catheter taken out and denies any chest pain, pressure, shortness of breath. Sodium noted to be somewhat lower today. She did have episode of A. fib yesterday and then converted to normal sinus rhythm. She has had intermittent episodes of pauses of her poor quality telemetry at the time and highest up to 2.6 seconds. May be be missed PVCs. 01/31/2021 Patient examined at the bedside. Patient denies chest pain or pressure. Denies SOB. Patient was afib RVR this morning. She received her morning medications and converted back to sinus mechanism. 02/01/2021 Patient remains on the cardiac stepdown unit. Patient denies chest pain or pressure. Denies SOB. She remains in sinus mechanism. Blood pressure 109/62. PHYSICAL EXAMINATION Vital signs reviewed. CONSTITUTIONAL: No apparent distress. HEENT: Head is normocephalic. Pupils are equal, round. Sclerae anicteric. Mucous membranes of the mouth are moist. No JVD. No carotid bruit. CHEST EXAMINATION: Lungs are clear to auscultation. No chest wall tenderness is noted on palpation or with deep breathing. HEART EXAMINATION: Regular rate and rhythm. S1, S2 heard. No murmurs, gallops or rub. ABDOMEN: Soft, nontender. Positive bowel sounds. EXTREMITIES: 2+ peripheral pulses, no lower extremity edema and no calf tenderness. NEUROLOGIC EXAMINATION: Patient is awake, alert and oriented x3. ASSESSMENT 1. Loss of consciousness with seizure-like activity likely related to syncope and then seizure related to hypoperfusional state 2. Paroxysmal atrial fibrillation, currently sinus rhythm 3. Hypertension 4. Recent hip surgery 5. Abnormal EKG PLAN Continue current cardiac medications Continue telemetry monitoring Further recommendations pending patient course Nurse practitioner note has been reviewed by physician. Signing provider agrees with the documented findings, assessment, and plan of care. Objective - Vital Signs Vital signs: Vital Signs Temp 97.7 F 02/01/21 08:00 Pulse 53 L 02/01/21 12:00 Resp 18 02/01/21 03:57 BP 109/62 02/01/21 12:00 Pulse Ox 100 02/01/21 12:00 Intake & Output 01/31/21 02/01/21 02/01/21 18:59 06:59 18:59 Intake Total 250 160 120 Output Total 825 700 Balance -575 -540 120 Weight 54.7 kg Intake: IV 10 Invasive Line 2 10 Oral 240 160 120 Output: Urine 825 700 Other: Voiding Method External Catheter # Voids 1 # Bowel Movements 1 1 - Labs CBC & Chem 7: 01/31/21 08:08 02/01/21 07:52 Labs: Abnormal Lab Results - Last 24 Hours (Table) 02/01/21 Range/Units 07:52 Sodium 134 L (137-145) mmol/L Chloride 97 L (98-107) mmol/L Carbon Dioxide 33 H (22-30) mmol/L Glucose 114 H (74-99) mg/dL
[2021-02-01] MEDS ORDERED: FUROSEMIDE 10 MG/ML 4 ML VIAL IV STA (13:17)
--- NOTE | 2021-02-01 14:29 | P.PN ---
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 Leihg and status post chemo and radiation, chronic dysphagia and hoarseness, COPD, former smoking history, past history of MRSA infection, and a recent history of left hip fracture after a fall, status post total left hip arthroplasty for displaced femoral neck fracture on 01/21/2021. Patient was discharged home on 01/26/2021. Patient given to the hospital on 01/28/2021 for a new onset seizure. Patient was performing physical therapy on the day of her presentation when she had a seizure. Patient stated that she was short of breath when she was walking with the assistance of a walker, she felt lightheaded, she dropped into a chair that her provided, and she did subsequently lose consciousness. Her eyes rolled back in her head and she had shaking of her bilateral hands. This seizure episode lasted for approximately 30 seconds before it resolved. She has no prior history of seizures. No history of head trauma or stroke, no headaches or visual changes, denied any fever or chills, no chest pain shortness of breath. No unilateral numbness or weakness. Brain CT showed no acute intracranial hemorrhage, midline shift or mass affect. Venous Doppler ultrasound of the left leg showed no evidence of DVT. Patient is on Eliquis for history of atrial fibrillation. EKG showed sinus rhythm with T-wave inversion in V2, V3, V4, V5 and V6. Labs on admission showed white blood cell count of 8.8, hemoglobin of 10, sodium of 134, potassium is 3.9, chloride is 102, CO2 is 27, B1 is 15, creatinine 0.6, glucose was 112, LFTs were within normal limits, troponin was less than 0.012, urinalysis showed evidence of urinary tract infection. COVID- 19 PCR was negative. EEG is pending, neurology is on the case. Chest x-ray was completed showing some blunting of the costophrenic angles, no hilar masses, no signs of mediastinal adenopathy, no heart failure. On 01/31/2021, the patient is being seen for a follow-up. The patient is doing well for now. She is on oxygen at 2 L per minute nasal cannula. She was given a dose of diuretics yesterday. The patient received a one-time dose of Lasix 40 mg IV push. Her previous echocardiogram that was done on 01/24/2021 showed an ejection fraction of 60% with mild pulmonary hypertension, no significant valvular abnormalities. There was borderline concentric LVH. The patient d iuresed. She made 1.6 L of urine output. I'm going to be given another dose of diuretics and repeat the chest x-ray in the morning. Meanwhile, electrolytes are all stable. Renal function stable with a creatinine of 0.7, sodium is 132, proBNP level was 5160 and a procal LEVEL IS AT 0.05. On 02/01/2021, the patient is being seen for a follow-up. For the most part, the patient is doing well. She has diuresed well with IV Lasix. A repeat chest x-ray was done and the patient continues to smoke about the pleural effusion which has remained unchanged. For that reason, I give the patient another dose of Lasix today. The patient will ultimately be treated with Lasix 40 mg by mouth daily basis. The patient has lost body weight. He is currently weighing 54.7 KG. Overall fluid balance is -1.1 L over the past 24 hours. Otherwise, the rest of blood work and electrodes are all within normal limits. ProBNP level was 5160. Repeat chest x-ray was done showed mild cardiomegaly, small bilateral pleural effusions. No significant interval change compared to the earlier chest x-rays. Objective - Vital Signs Vital signs: Vital Signs Temp 97.7 F 02/01/21 08:00 Pulse 53 L 02/01/21 12:00 Resp 18 02/01/21 03:57 BP 109/62 02/01/21 12:00 Pulse Ox 100 02/01/21 12:00 Intake & Output 01/31/21 02/01/21 02/01/21 18:59 06:59 18:59 Intake Total 250 160 240 Output Total 825 700 Balance -575 -540 240 Weight 54.7 kg Intake: IV 10 Invasive Line 2 10 Oral 240 160 240 Output: Urine 825 700 Other: Voiding Method External Catheter # Voids 1 # Bowel Movements 1 1 - Exam GENERAL EXAM: Alert, very pleasant, 70-year-old white female, a 2 L of oxygen a pulse ox of 99% comfortable in no apparent distress. HEAD: Normocephalic/atraumatic. EYES: Normal reaction of pupils, equal size. Conjunctiva pink, sclera white. NOSE: Clear with pink turbinates. THROAT: No erythema or exudates. NECK: No masses, no JVD, no thyroid enlargement, no adenopathy. CHEST: No chest wall deformity. Symmetrical expansion. LUNGS: Equal air entry with diminished breath sounds at the bases CVS: Regular rate and rhythm, normal S1 and S2, no gallops, no murmurs, no rubs ABDOMEN: Soft, nontender. No hepatosplenomegaly, normal bowel sounds, no guarding or rigidity. EXTREMITIES: No clubbing, , no cyanosis, 2+ pulses and upper and lower extremities. MUSCULOSKELETAL: Muscle strength and tone normal. SPINE: No scoliosis or deformity SKIN: No rashes CENTRAL NERVOUS SYSTEM: Alert and oriented -3. No focal deficits, tone is normal in all 4 extremities. PSYCHIATRIC: Alert and oriented -3. Appropriate affect. Intact judgment and insight. - Labs CBC & Chem 7: 01/31/21 08:08 02/01/21 07:52 Labs: Abnormal Lab Results - Last 24 Hours (Table) 02/01/21 Range/Units 07:52 Sodium 134 L (137-145) mmol/L Chloride 97 L (98-107) mmol/L Carbon Dioxide 33 H (22-30) mmol/L Glucose 114 H (74-99) mg/dL Assessment and Plan Plan: #1. Mild hypoxia, acute, related to small pleural effusions. COVID-19 PCR was negative. Patient is on 2 L of oxygen, the patient responded to diuretics. The follow-up chest x-ray still showing small bilateral pleural effusions and cardiomegaly. Clinically improved however. #2. New onset seizure, with loss of consciousness. Brain CT showed no acute a bnormality. EEG is pending, neurology service is following #3. History of paroxysmal atrial fibrillation on Eliquis, currently in sinus mechanism #4. Recent left hip arthroplasty for displaced left femoral neck fracture on 01/21/2021 after a fall at home, discharged home on 01/26/2021 #5. Left leg swelling, lower extremity Doppler was negative for evidence of DVT #6. History of tracheal/esophageal cancer, with previous history of surgery and chemoradiation #7. History of COPD #8. Former history of smoking, currently in remission #9. Previous history of MRSA infection #10. Acute urinary tract infection Plan: The patient another dose of Lasix 40 mg IV 1 Started patient on daily dose of 40 mg by mouth daily Check the patient's pulse ox on room air oxygen Blood work was noted and the patient has lost approximately 3 kg body weight which is essentially in the form of fluid Follow-up oxygenation We'll continue to follow
--- NOTE | 2021-02-01 16:53 | PN ---
PROGRESS NOTE DATE OF SERVICE: 02/01/2021 This 70-year-old woman who was admitted with syncope and some abnormal movement also was found to be congested. The patient received a dose of Lasix today. The patient is still short of breath. Chest x-ray which I reviewed personally showed evidence of some pleural effusion, right more than the left. Neurology has recommended continuing the current medications at this time. Past medical history reviewed. REVIEW OF SYSTEMS: CARDIOVASCULAR SYSTEM: No angina. RESPIRATION: As mentioned earlier. GI: As mentioned earlier. : No dysuria. NERVOUS SYSTEM: As mentioned earlier. CURRENT MEDICATIONS: Reviewed. They include [place], DuoNeb, Cordarone, Eliquis, Lipitor, Symbicort, Lasix, Synthroid, Lopressor. Doses are reviewed. PHYSICAL EXAMINATION: Patient is alert and x3. Pulse 68, blood pressure 94/52, respiration 20, temperature normal, pulse ox 98% on 2 L. HEENT: Conjunctivae normal. NECK: No jugular venous distention. CARDIOVASCULAR: S1, S2 muffled. RESPIRATION: Breath sounds diminished at the bases. Scattered rhonchi. ABDOMEN: Soft, nontender. LEGS: No edema. No swelling. NERVOUS SYSTEM: No focal deficit. LABS: Sodium 134, hemoglobin is 10.2, glucose 114. ASSESSMENT: 1. Syncope with abnormal movement; possible convulsive syncope. 2. Paroxysmal atrial fibrillation. 3. Recent left hip arthroplasty. 4. Possibly congestive heart failure, acute exacerbation. 5. Hypertension. 6. Chronic anemia. 7. Hypovolemic hyponatremia. 8. Mild protein-calorie malnutrition. 9. Possible urinary tract infection, present on admission. 10.Hyponatremia. 11.Congestive heart failure with acute on chronic diastolic dysfunction. RECOMMENDATIONS AND DISCUSSION: I recommend to continue current medications, continue with symptomatic treatment. Otherwise, continue with the Lasix. A 2D echo with Doppler done earlier showed ejection fraction about 60% to 65%. Continue to monitor. Repeat labs. Case management team to evaluate the home situation. Guarded prognosis. Further recommendations to follow. Check oxygen also. MMODL / IJN: [id number] /
[2021-02-01] MEDS: HYDROcodone/APAP 5-325MG 1 EACH TAB PO PRN (19:59)
[2021-02-02 00:49] VITALS: RESP 18; TEMP 97.8
[2021-02-02] MEDS: LEVOTHYROXINE 75 MCG TAB PO SCH (05:43)
[2021-02-02] MEDS: IPRATROPIUM-ALBUTEROL 3 ML NEB INHALATION SCH ×2 (07:40→12:09)
[2021-02-02] MEDS: SYMBICORT 80-4.5 MCG INHALER INHALATION SCH (07:41)
[2021-02-02 08:03] LABS: Basophils % (A) 0 %; Eosinophils # (A) 0.2 k/uL (0-0.7); Eosinophils % (A) 3 %; HGB 9.7 gm/dL (11.4-16.0); Hypochromasia Slight; Lymphocytes # (A) 0.8 k/uL (1.0-4.8); Lymphocytes % (A) 13 %; MCH 32.2 pg (25.0-35.0); MCHC 32.2 g/dL (31.0-37.0); MCV 99.9 fL (80.0-100.0); Macrocytosis Slight; Mean Platelet Volume 7.6; Monocytes # (A) 0.3 k/uL (0-1.0); Monocytes % (A) 4 %; Neutrophils # (A) 4.5 k/uL (1.3-7.7); Neutrophils % (A) 78 %; Platelet Count 494 k/uL (150-450); RDW 14.1 % (11.5-15.5); WBC 5.8 k/uL (3.8-10.6)
[2021-02-02 08:24] LABS: African American GFR (CKD) >90 (>60 ml/min/1.73 sqM); Anion Gap 3 mmol/L; Blood Urea Nitrogen 10 mg/dL (7-17); Calcium 9.2 mg/dL (8.4-10.2); Carbon Dioxide 34 mmol/L (22-30); Chloride 96 mmol/L (98-107); Glucose 110 mg/dL (74-99); Non-African American GFR(CKD) 82 (>60 ml/min/1.73 sqM); Potassium 4.9 mmol/L (3.5-5.1); Sodium 133 mmol/L (137-145)
[2021-02-02] MEDS: AMIODARONE 200 MG TAB PO SCH (08:46)
[2021-02-02] MEDS: ATORVASTATIN 10 MG TAB PO SCH (08:46)
[2021-02-02] MEDS: METOPROLOL TARTRATE 50 MG TAB PO SCH (08:46)
[2021-02-02] MEDS: APIXABAN 5 MG TAB PO SCH (08:46)
[2021-02-02] MEDS: TAMSULOSIN 0.4 MG CAP.ER.24H PO SCH (08:46)
[2021-02-02] MEDS: EZETIMIBE 10 MG TAB PO SCH (08:46)
[2021-02-02] MEDS ORDERED: FUROSEMIDE 40 MG TAB PO SCH (09:00)
[2021-02-02 11:35] VITALS: BP 107/58
--- NOTE | 2021-02-02 12:07 | CDI ---
Acute urinary tract infection is documented 01/30, Pulmonary consult and in Neurology progress notes 01/31. Additional clarification regarding this diagnosis is requested. History/Risk Factors: 70-year-old female presents to the ED after loss of consciousness and questionable seizure like activity while at physical therapy. Medical history: Atrial Fib, COPD and recent left hip surgery 01/21/2021. Clinical Indicators: Vital Signs: B/P 132/76, HR 67, Temp 98.0 F RR 18, SpO2 99% ra WBC: 01/28 8.8 Urinalysis: 01/28 Protein 1+, Ketone - trace, Leukocyte esterase - small, Rbc >182, Wbc 30. Urine Culture: 01/28 No growth after 18 hours Medicine H&P and progress notes 01/29 thru 02/01: Possible UTI. Treatment: 01/28 Rocephin 1,000mg IVP X1, 01/29 01/30 Ceftriaxone 1gm IVPB Q24HR. Please clarify if there is an additional diagnosis associated with the UTI: [ ] UTI ruled out [ ] UTI poa treated and resolved [ ] Other, please specify [ ] Unable to determine (Template Last Revised: May 2020) possible uti present on admission MTDD
[2021-02-02 12:15] VITALS: PULSE 52
--- NOTE | 2021-02-02 13:16 | P.PN ---
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 Patient was recently admitted with hip replacement last week and had somewhat prolonged recovery complicated by episodes of atrial fibrillation with RVR. Patient had been started on amiodarone as well as metoprolol and she been tolerating this well and then discharged. She was having frequent runs of A. fib with heart rates up to 130s. The amiodarone was new. Apparently she had done okay for approximately 2 days however then was doing some routine walking around the kitchen and showing her and physical therapist when she states she became somewhat lightheaded and then was looking like she was going to pass out and was being brought down into a chair when she started having seizure-like activity. Apparently this lasted for 20-30 seconds. Patient denies any prior history of anything similar. She did not hurt herself. Patient initially was noted to be in sinus rhythm on presentation with minimal ST changes in anterolateral leads however them was noted to be in A. fib with RVR this morning with heart rates 120s up to 160s. Patient states that during that episode she did not have any significant chest pain or pressure however did feel a fluttering. Denies any shortness breath. She was placed on a Cardizem drip as well as the home amiodarone and metoprolol and then converted back to sinus rhythm a few hours ago. 01/30/2021 Patient seen and examined. Patient states overall she has been feeling well. She has not been up walking around much however. She did have her Leon catheter taken out and denies any chest pain, pressure, shortness of breath. Sodium noted to be somewhat lower today. She did have episode of A. fib yesterday and then converted to normal sinus rhythm. She has had intermittent episodes of pauses of her poor quality telemetry at the time and highest up to 2.6 seconds. May be be missed PVCs. 01/31/2021 Patient examined at the bedside. Patient denies chest pain or pressure. Denies SOB. Patient was afib RVR this morning. She received her morning medications and converted back to sinus mechanism. 02/01/2021 Patient remains on the cardiac stepdown unit. Patient denies chest pain or pressure. Denies SOB. She remains in sinus mechanism. Blood pressure 109/62. 02/02/2021 Patient examined this morning at the bedside. She denies chest pain or pressure. She denies shortness of breath. Telemetry reveals sinus mechanism with heart rate in the 50s to 60s. She is anxious to be discharged home today. PHYSICAL EXAMINATION Vital signs reviewed. CONSTITUTIONAL: No apparent distress. HEENT: Head is normocephalic. Pupils are equal, round. Sclerae anicteric. Mucous membranes of the mouth are moist. No JVD. No carotid bruit. CHEST EXAMINATION: Lungs are clear to auscultation. No chest wall tenderness is noted on palpation or with deep breathing. HEART EXAMINATION: Regular rate and rhythm. S1, S2 heard. No murmurs, gallops or rub. ABDOMEN: Soft, nontender. Positive bowel sounds. EXTREMITIES: 2+ peripheral pulses, no lower extremity edema and no calf tenderness. NEUROLOGIC EXAMINATION: Patient is awake, alert and oriented x3. ASSESSMENT 1. Loss of consciousness with seizure-like activity likely related to syncope and then seizure related to hypoperfusional state 2. Paroxysmal atrial fibrillation, currently sinus rhythm 3. Hypertension 4. Recent hip surgery 5. 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 Maya Nurse practitioner note has been reviewed by physician. Signing provider agrees with the documented findings, assessment, and plan of care. Objective - Vital Signs Vital signs: Vital Signs Temp 97.8 F 02/02/21 11:34 Pulse 52 L 02/02/21 12:20 Resp 18 02/02/21 11:34 BP 107/58 02/02/21 11:34 Pulse Ox 100 02/02/21 11:34 Intake & Output 02/01/21 02/02/21 02/02/21 18:59 06:59 18:59 Intake Total 360 720 120 Output Total 300 900 Balance 60 -180 120 Weight 57 kg Intake: Oral 360 720 120 Output: Urine 300 900 Other: Voiding Method External Catheter # Voids 2 1 # Bowel Movements 1 1 - Labs CBC & Chem 7: 02/02/21 07:37 02/02/21 07:37 Labs: Abnormal Lab Results - Last 24 Hours (Table) 02/02/21 02/02/21 Range/Units 07:37 07:37 RBC 3.00 L (3.80-5.40) m/uL Hgb 9.7 L (11.4-16.0) gm/dL Hct 30.0 L (34.0-46.0) % Plt Count 494 H (150-450) k/uL Lymphocytes # 0.8 L (1.0-4.8) k/uL Sodium 133 L (137-145) mmol/L Chloride 96 L (98-107) mmol/L Carbon Dioxide 34 H (22-30) mmol/L Glucose 110 H (74-99) mg/dL
--- NOTE | 2021-02-02 16:35 | P.PN ---
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 Leigh and status post chemo and radiation, chronic dysphagia and hoarseness, COPD, former smoking history, past history of MRSA infection, and a recent history of left hip fracture after a fall, status post total left hip arthroplasty for displaced femoral neck fracture on 01/21/2021. Patient was discharged home on 01/26/2021. Patient given to the [facility] on 01/28/2021 for a new onset seizure. Patient was performing physical therapy on the day of her presentation when she had a seizure. Patient stated that she was short of breath when she was walking with the assistance of a walker, she felt lightheaded, she dropped into a chair that her provided, and she did subsequently lose consciousness. Her eyes rolled back in her head and she had shaking of her bilateral hands. This seizure episode lasted for approximately 30 seconds before it resolved. She has no prior history of seizures. No history of head trauma or stroke, no headaches or visual changes, denied any fever or chills, no chest pain shortness of breath. No unilateral numbness or weakness. Brain CT showed no acute intracranial hemorrhage, midline shift or mass affect. Venous Doppler ultrasound of the left leg showed no evidence of DVT. Patient is on Eliquis for history of atrial fibrillation. EKG showed sinus rhythm with T-wave inversion in V2, V3, V4, V5 and V6. Labs on admission showed white blood cell count of 8.8, hemoglobin of 10, sodium of 134, potassium is 3.9, chloride is 102, CO2 is 27, B1 is 15, creatinine 0.6, glucose was 112, LFTs were within normal limits, troponin was less than 0.012, urinalysis showed evidence of urinary tract infection. COVID- 19 PCR was negative. EEG is pending, neurology is on the case. Chest x-ray was completed showing some blunting of the costophrenic angles, no hilar masses, no signs of mediastinal adenopathy, no heart failure. On 01/31/2021, the patient is being seen for a follow-up. The patient is doing well for now. She is on oxygen at 2 L per minute nasal cannula. She was given a dose of diuretics yesterday. The patient received a one-time dose of Lasix 40 mg IV push. Her previous echocardiogram that was done on 01/24/2021 showed an ejection fraction of 60% with mild pulmonary hypertension, no significant valvular abnormalities. There was borderline concentric LVH. The patient diuresed. She made 1.6 L of urine output. I'm going to be given another dose of diuretics and repeat the chest x-ray in the morning. Meanwhile, electrolytes are all stable. Renal function stable with a creatinine of 0.7, sodium is 132, proBNP level was 5160 and a procal LEVEL IS AT 0.05. On 02/01/2021, the patient is being seen for a follow-up. For the most part, the patient is doing well. She has diuresed well with IV Lasix. A repeat chest x-ray was done and the patient continues to smoke about the pleural effusion which has remained unchanged. For that reason, I give the patient another dose of Lasix today. The patient will ultimately be treated with Lasix 40 mg by mouth daily basis. The patient has lost body weight. He is currently weighing 54.7 KG. Overall fluid balance is -1.1 L over the past 24 hours. Otherwise, the rest of blood work and electrodes are all within normal limits. ProBNP level was 5160. Repeat chest x-ray was done showed mild cardiomegaly, small bilateral pleural effusions. No significant interval change compared to the earlier chest x-rays. On 02/02/2021 patient seen in follow-up. She is resting comfortably in bed, she is set 100% on 2 L of oxygen, breathing comfortably, she received an extra dose of Lasix yesterday, she is in negative fluid balance although accurate intake and output is not available as some of the outputs were recorded in occurrences instead of , once. No worsening dyspnea or hypoxia. Lung sounds reveal minimal crackles at the bases, no fever or chills, his labs have been reviewed, white blood cell count is 5.8, hemoglobin is 9.7, sodium is 133, potassium is 4.9, chloride is 96, CO2 34, BUN is 10 creatinine 0.74. No acute issues overnight. No recurrence of seizures. She remains in sinus mechanism with a controlled rate. No complaints of shortness of breath or chest pain. Objective - Vital Signs Vital signs: Vital Signs Temp 97.8 F 02/02/21 11:34 Pulse 52 L 02/02/21 12:20 Resp 18 02/02/21 14:31 BP 107/58 02/02/21 11:34 Pulse Ox 100 02/02/21 11:34 Intake & Output 02/01/21 02/02/21 02/02/21 18:59 06:59 18:59 Intake Total 360 720 240 Output Total 300 900 Balance 60 -180 240 Weight 57 kg Intake: Oral 360 720 240 Output: Urine 300 900 Other: Voiding Method External Catheter # Voids 2 1 # Bowel Movements 1 1 - Exam GENERAL EXAM: Alert, very pleasant, 70-year-old white female, on 2 L of oxygen with a pulse ox of 100% comfortable in no apparent distress. HEAD: Normocephalic/atraumatic. EYES: Normal reaction of pupils, equal size. Conjunctiva pink, sclera white. NOSE: Clear with pink turbinates. THROAT: No erythema or exudates. NECK: No masses, no JVD, no thyroid enlargement, no adenopathy. CHEST: No chest wall deformity. Symmetrical expansion. LUNGS: Equal air entry with no crackles, wheeze, rhonchi or dullness. CVS: Regular rate and rhythm, normal S1 and S2, no gallops, no murmurs, no rubs ABDOMEN: Soft, nontender. No hepatosplenomegaly, normal bowel sounds, no guarding or rigidity. EXTREMITIES: No clubbing, no edema, no cyanosis, 2+ pulses and upper and lower extremities. MUSCULOSKELETAL: Muscle strength and tone normal. SPINE: No scoliosis or deformity SKIN: No rashes CENTRAL NERVOUS SYSTEM: Alert and oriented -3. No focal deficits, tone is normal in all 4 extremities. PSYCHIATRIC: Alert and oriented -3. Appropriate affect. Intact judgment and insight. - Labs CBC & Chem 7: 02/02/21 07:37 02/02/21 07:37 Labs: Abnormal Lab Results - Last 24 Hours (Table) 02/02/21 02/02/21 Range/Units 07:37 07:37 RBC 3.00 L (3.80-5.40) m/uL Hgb 9.7 L (11.4-16.0) gm/dL Hct 30.0 L (34.0-46.0) % Plt Count 494 H (150-450) k/uL Lymphocytes # 0.8 L (1.0-4.8) k/uL Sodium 133 L (137-145) mmol/L Chloride 96 L (98-107) mmol/L Carbon Dioxide 34 H (22-30) mmol/L Glucose 110 H (74-99) mg/dL Assessment and Plan Plan: Assessment: #1. Mild hypoxia, acute, related to small pleural effusions. COVID-19 PCR was negative. Patient is on 2 L of oxygen #2. New onset seizure, with loss of consciousness. Brain CT showed no acute abnormality. EEG is pending, neurology service is following #3. History of paroxysmal atrial fibrillation on Eliquis, currently in sinus mechanism #4. Recent left hip arthroplasty for displaced left femoral neck fracture on 01/21/2021 after a fall at home, discharged home on 01/26/2021 #5. Left leg swelling, lower extremity Doppler was negative for evidence of DVT #6. History of tracheal/esophageal cancer, with previous history of surgery and chemoradiation #7. History of COPD #8. Former history of smoking, currently in remission #9. Previous history of MRSA infection #10. Acute urinary tract infection Plan: Continue with oral dose of Lasix Patient is in negative fluid balance, breathing comfortably, Obtain home oxygen assessment Increase activity as tolerated She is cleared for discharge home from pulmonary perspective I performed a history & physical examination of the patient and discussed their management with my nurse practitioner, Sangeetha Plasencia. I reviewed the nurse practitioner's note and agree with the documented findings and plan of care. Lung sounds are positive for diminished breath sounds at bilateral bases throughout the lung huggins. The findings and the impression was discussed with the patient. I attest to the documentation by the nurse practitioner. Time with Patient: Less than 30
--- NOTE | 2021-02-04 09:56 | P.DS ---
Providers Date of admission: 01/31/21 08:23 Expected date of discharge: 02/02/21 Attending physician: Rasheed Fritz MD Consults: 01/28/21 19:10 Consult Physician Urgent Consulting Provider: Prasad García Consult Reason/Comments: new onset seizure Do you want consulting provider notified?: Yes 01/29/21 16:49 Consult Physician Urgent Consulting Provider: Greg Pina Consult Reason/Comments: Increasing [place] Pleural effusions Do you want consulting provider notified?: Yes Primary care physician: Jennifer Mckinley DO Hospital Course: Final diagnosis Syncope with abnormal movement, possible convulsive syncope Paroxysmal atrial fibrillation Recent left hip arthroplasty Hypertension Chronic anemia hypovolemic hyponatremia Mild protein calorie malnutrition Possible urinary tract infection, present on admission Congestive heart failure with acute on chronic diastolic dysfunction, EF is 60- 65% Discharge disposition Patient is being discharged in a stable condition with guarded prognosis to home. Patient will continue with visiting nurses home care upon discharge. Patient will follow-up with Dr. Jennifer Mckinley upon discharge. She also continue to follow-up with neurology Dr. Gutierrez along with pulmonary in the outpatient setting. Patient will continue on oral Lasix 40 mg daily along with breathing inhalational treatments and recommend repeat labs in the outpatient setting with primary care provider. Patient will require 2 L of oxygen via nasal cannula secondary to congestive heart failure. Total time taken is greater than 35 minutes. Hospital course This is a 70-year-old female who was admitted with syncope and some abnormal movement also found to be congested and was evaluated by neurology along with pulmonary. Patient was started on Lasix and will continue on oral Lasix 40 mg daily and recommend outpatient follow-up closely with neurologist along with her primary care provider Dr. Mckinley and repeat labs in 2-3 days. Patient continue shortness of breath and requiring oxygen which is being arranged by case management for discharge. Patient was exhibiting signs and symptoms of possible urinary tract infection, present on admission and was started on IV ceftriaxone and has received 2-3 doses and urine culture finalized showing no growth and was treated adequately with no further signs of dysuria noted. at the bedside and patient requesting to be discharged home. Patient continues to have poor intake and encouraged and sugars between meals and also encouraged increased protein intake. Currently no reports of chest pain, worsening shortness of breath, or palpitations. Patient is afebrile. No reports of nausea or vomiting and patient is tolerating diet. She will be discharged home with continued home care. Guarded prognosis. On exam vital signs are stable. Cardio S1, S2 are muffled. Respiratory shows diminished breath sounds at the bases with a few scattered rhonchi noted. Abdomen is soft and nontender. Nervous system shows no focal deficits. Please refer to medication reconciliation sheet for a list of medications. Patient Condition at Discharge: Stable Plan - Discharge Summary Discharge Rx Participant: No New Discharge Prescriptions: New Multivitamins, Thera [Multivitamin] 1 tab PO DAILY #30 tablet Furosemide [Lasix] 40 mg PO DAILY 30 Days #30 tablet Ipratropium-Albuterol Nebulize [Duoneb 0.5 mg-3 mg/3 ml Soln] 3 ml INHALATION RT-QID 30 Days #120 ml Ipratropium-Albuterol Nebulize [Duoneb 0.5 mg-3 mg/3 ml Soln] 3 ml INHALATION RT-Q2H PRN ml PRN Reason: Shortness Of Breath Or Wheezing Continue Levothyroxine Sodium [Synthroid] 75 mcg PO DAILY Ezetimibe [Zetia] 10 mg PO DAILY Apixaban [Eliquis] 5 mg PO BID Metoprolol Tartrate [Lopressor] 50 mg PO BID 30 Days #60 tab HYDROcodone/APAP 5-325MG [[place] 5-325] 1 tab PO Q6HR PRN 7 Days #28 tab PRN Reason: Pain Fluticasone Propion/Salmeterol [Fluticasone-Salmeterol 250-50] 1 puff INHALATION RT-BID Albuterol Sulfate [Albuterol Sulfate Hfa] 2 puff PO RT-Q4H PRN PRN Reason: Shortness Of Breath Rosuvastatin Calcium 5 mg PO DAILY Doxycycline Monohydrate 100 mg PO BID 14 Days #28 cap Tamsulosin [Flomax] 0.4 mg PO PC-BRKFST 30 Days #30 capsule Amiodarone [Cordarone] See Taper PO BID Discharge Medication List Albuterol Sulfate [Albuterol Sulfate Hfa] 2 puff PO RT-Q4H PRN 01/20/21 [History] Apixaban [Eliquis] 5 mg PO BID 01/20/21 [History] Ezetimibe [Zetia] 10 mg PO DAILY 01/20/21 [History] Fluticasone Propion/Salmeterol [Fluticasone-Salmeterol 250-50] 1 puff INHALATION RT-BID 01/20/21 [History] Levothyroxine Sodium [Synthroid] 75 mcg PO DAILY 01/20/21 [History] Rosuvastatin Calcium 5 mg PO DAILY 01/20/21 [History] Doxycycline Monohydrate 100 mg PO BID 14 Days #28 cap 01/21/21 [Rx] HYDROcodone/APAP 5-325MG [[place] 5-325] 1 tab PO Q6HR PRN 7 Days #28 tab 01/26/21 [Rx] Metoprolol Tartrate [Lopressor] 50 mg PO BID 30 Days #60 tab 01/26/21 [Rx] Tamsulosin [Flomax] 0.4 mg PO PC-BRKFST 30 Days #30 capsule 01/26/21 [Rx] Amiodarone [Cordarone] See Taper PO BID 01/28/21 [History] Furosemide [Lasix] 40 mg PO DAILY 30 Days #30 tablet 02/01/21 [Rx] Ipratropium-Albuterol Nebulize [Duoneb 0.5 mg-3 mg/3 ml Soln] 3 ml INHALATION RT-Q2H PRN ml 02/02/21 [Rx] Ipratropium-Albuterol Nebulize [Duoneb 0.5 mg-3 mg/3 ml Soln] 3 ml INHALATION RT-QID 30 Days #120 ml 02/02/21 [Rx] Multivitamins, Thera [Multivitamin] 1 tab PO DAILY #30 tablet 02/02/21 [Rx] Follow up Appointment(s)/Referral(s): Mayank Gutierrez MD [REFERRING] - 1 Week (Office will call you to schedule follow up. ) Jennifer Mckinley DO [Primary Care Provider] - 02/04/21 1:30 pm Linda Liao MD [STAFF PHYSICIAN] - 02/15/21 2:15 pm (Follow up with Myriam- nurse practitioner) [facility] Visiting Nurse, [NON-STAFF] - Patient Instructions/Handouts: Seizure/Epilepsy Discharge Instructions & Follow-Up Activity/Diet/Wound Care/Special Instructions: Activity Limited until follow-up Follow-up with primary care provider on discharge Follow-up cardiology outpatient Continue with antibiotics until finished Continue current medications Continue heart healthy diet Discharge Disposition: HOME WITH HOME HEALTH SERVICES
== END 2021-02-02 15:54 | disposition home health service (06) | DRG 100 ==
LOC: EC 13:06 → 3SCARD 19:09 → OBSVTOIN 01-31 08:23
PROVIDERS: ADMIT Internal Medicine; ATTEND Internal Medicine
DX: R56.9 Unspecified convulsions (principal); I50.33 Acute on chronic diastolic (congestive) heart failure; E44.1 Mild protein-calorie malnutrition; E87.1 Hypo-osmolality and hyponatremia; N39.0 Urinary tract infection, site not specified; J90 Pleural effusion, not elsewhere classified; I11.0 Hypertensive heart disease with heart failure; Z20.822 Contact with and (suspected) exposure to COVID-19; Z68.22 Body mass index [BMI] 22.0-22.9, adult; J44.9 Chronic obstructive pulmonary disease, unspecified; I48.0 Paroxysmal atrial fibrillation; S72.092D Other fracture of head and neck of left femur, subsequent encounter for closed fracture with routine healing; R55 Syncope and collapse; R09.02 Hypoxemia; R13.19 Other dysphagia; E86.1 Hypovolemia; M79.89 Other specified soft tissue disorders; D64.9 Anemia, unspecified; I27.20 Pulmonary hypertension, unspecified; F41.9 Anxiety disorder, unspecified; Z96.642 Presence of left artificial hip joint; Z79.01 Long term (current) use of anticoagulants; Z79.51 Long term (current) use of inhaled steroids; Z79.890 Hormone replacement therapy; Z79.899 Other long term (current) drug therapy; Z85.01 Personal history of malignant neoplasm of esophagus; Z85.12 Personal history of malignant neoplasm of trachea; Z86.14 Personal history of Methicillin resistant Staphylococcus aureus infection; Z92.21 Personal history of antineoplastic chemotherapy; Z92.3 Personal history of irradiation; Z88.0 Allergy status to penicillin; Z88.5 Allergy status to narcotic agent; Z98.51 Tubal ligation status; Z87.19 Personal history of other diseases of the digestive system
CPT/HCPCS: 36415; 70450; 71045; 71046; 80048; 80053; 81001; 83735; 83880; 84145; 84484; 85025; 87086; 87635; 93005; 94640; 94760; 95816; 99285

== ENCOUNTER → 2021-04-25 | Outpatient (CLI) | payer MEDICARE ==
[2021-04-25 23:13] LABS: African American GFR (CKD) 57.9 (60.0-200.0); Albumin 4.8 g/dL (3.8-4.9); Albumin/Globulin Ratio 1.6 (1.60-3.17); Anion Gap 14.4 mmol/L (10.00-18.00); BUN/Creat Ratio 19.01 Ratio (12.00-20.00); Blood Urea Nitrogen 21.1 mg/dL (9.0-27.0); Calcium 10.2 mg/dL (8.7-10.3); Carbon Dioxide 23.6 mmol/L (20.0-27.5); Non-African American GFR(CKD) 49.9 (60.0-200.0); Potassium 4.8 mmol/L (3.5-5.5); Total Bilirubin 0.4 mg/dL (0.30-1.20); Total Protein 7.8 g/dL (6.2-8.2)
== END | disposition home or self-care (01) ==
LOC: LABWHC1 14:39
PROVIDERS: ATTEND Internal Medicine Interventional Cardiology
DX: I48.0 Paroxysmal atrial fibrillation (principal); E03.9 Hypothyroidism, unspecified
CPT/HCPCS: 36415; 80053; 84439; 84443

== ENCOUNTER → 2021-04-25 | Outpatient (CLI) | payer MEDICARE ==
--- NOTE | 2021-04-25 15:01 | MR ---
EXAMINATION TYPE: MR brain wo/w con DATE OF EXAM: 04/25/2021 COMPARISON: CT brain January 28, 2021 HISTORY: No prior, history of syncope with convulsions, possible seizure TECHNIQUE: Multiplanar, multisequence images of the brain and brainstem is performed without and with IV contras t, utilizing 5ml mL intravenous Gadavist . FINDINGS: Diffusion weighted images demonstrate no evidence of a recent infarct or other diffusion ab normality. There is mild to moderate ventricular and sulcal prominence. Scattered foci of T2 hyperin tensity are seen throughout the white matter bilaterally. Approximately 20-30 scattered lesions are s een. Lesions are nonspecific in appearance and distribution. T2 coronal weighted images show hippocam pal gyri to appear symmetric and thought within normal limits. Midline structures redemonstrate normal morphology. The craniocervical junction appears within ruben l limits. Post contrast images demonstrate no abnormal enhancement or enhancing masses. Dural venous sinuses appear patent. Moderate mucosal thickening and/or polypoid formation in the inferior right m axillary sinus otherwise paranasal sinuses are clear. Globes are intact bilaterally. IMPRESSION: Mild to moderate diffuse cerebral atrophy and chronic small vessel ischemic change redemo nstrated. No suspicious enhancing masses noted.
== END | disposition home or self-care (01) ==
LOC: RADMRIMAIN 12:21
PROVIDERS: ATTEND Psychiatry & Neurology Neurology
DX: I67.82 Cerebral ischemia (principal); G31.89 Other specified degenerative diseases of nervous system
CPT/HCPCS: 70553; A9585

== ENCOUNTER → 2021-11-03 | Outpatient (CLI) | payer MEDICARE ==
[2021-11-03 14:46] LABS: ALT 17 U/L (8-44); AST 22 U/L (13-35); African American GFR (CKD) 73.3 (60.0-200.0); Albumin 4.6 g/dL (3.8-4.9); Albumin/Globulin Ratio 1.37 (1.60-3.17); Alkaline Phosphatase 78 U/L (41-126); BUN/Creat Ratio 12.49 Ratio (12.00-20.00); Blood Urea Nitrogen 11.4 mg/dL (9.0-27.0); Calcium 10.2 mg/dL (8.7-10.3); Carbon Dioxide 25.2 mmol/L (20.0-27.5); Chloride 98 mmol/L (96-109); Chol/HDL Ratio 2.06 Ratio; Globulin 3.4 g/dL (1.6-3.3); Glucose 92 mg/dL (70-110); LDL Cholesterol,Calculated 61.9 mg/dL (0.0-131.0); Non-African American GFR(CKD) 63.2 (60.0-200.0); Sodium 135 mmol/L (135-145)
== END | disposition home or self-care (01) ==
LOC: LABWHC1 08:27
PROVIDERS: ATTEND Internal Medicine Interventional Cardiology
DX: I48.0 Paroxysmal atrial fibrillation (principal); E78.2 Mixed hyperlipidemia; E03.9 Hypothyroidism, unspecified
CPT/HCPCS: 36415; 80053; 80061; 84439; 84443

== ENCOUNTER 2022-08-03 20:22 | Observation (INO) | payer MEDICARE ==
[2022-08-03] MEDS ORDERED: ASPIRIN 81 MG PO STA (21:37)
[2022-08-03] MEDS ORDERED: SODIUM CHLORIDE 0.9% 1,000 ML IV STA (21:37)
[2022-08-03 22:26] LABS: Partial Thromboplastin Time 26.5 sec (22.0-30.0); Prothrombin Time 10.4 sec (9.0-12.0)
[2022-08-03 22:38] LABS: ALT 16 U/L (4-34); AST 22 U/L (14-36); African American GFR (CKD) >90 (>60 ml/min/1.73 sqM); Albumin 3.9 g/dL (3.5-5.0); Alkaline Phosphatase 84 U/L (38-126); Anion Gap 10 mmol/L; Blood Urea Nitrogen 15 mg/dL (7-17); Carbon Dioxide 25 mmol/L (22-30); Chloride 97 mmol/L (98-107); Glucose 124 mg/dL (74-99); Non-African American GFR(CKD) 83 (>60 ml/min/1.73 sqM); Potassium 4.4 mmol/L (3.5-5.1); Sodium 132 mmol/L (137-145); Total Bilirubin 0.4 mg/dL (0.2-1.3); Total Protein 6.8 g/dL (6.3-8.2)
[2022-08-03 22:39] LABS: Basophils % (A) 0 %; Eosinophils # (A) 0.1 k/uL (0-0.7); Eosinophils % (A) 1 %; HCT 35.7 % (34.0-46.0); Lymphocytes # (A) 1.1 k/uL (1.0-4.8); Lymphocytes % (A) 10 %; MCHC 33.7 g/dL (31.0-37.0); MCV 91.9 fL (80.0-100.0); Mean Platelet Volume 7.5; Monocytes # (A) 0.5 k/uL (0-1.0); Monocytes % (A) 4 %; Neutrophils # (A) 9.6 k/uL (1.3-7.7); Neutrophils % (A) 83 %; Platelet Count 369 k/uL (150-450); RBC 3.88 m/uL (3.80-5.40); WBC 11.6 k/uL (3.8-10.6)
--- NOTE | 2022-08-03 22:39 | XR ---
EXAM: XR Chest, 2 Views CLINICAL HISTORY: ITS.REASON XR Reason: dysrhythmia TECHNIQUE: Frontal and lateral views of the chest. COMPARISON: 02/21/2021. FINDINGS: Lungs: Mild COPD. No consolidative changes. Pleural space: Unremarkable. No pneumothorax. No pleural effusions. Heart: Unremarkable. No cardiomegaly. Mediastinum: Cardiomediastinal silhouette unremarkable. Bones/joints: Osteopenia. Mild to moderate degenerative disease of the thoracic spine. Chronic compression fracture of midthoracic vertebral body, unchanged. IMPRESSION: 1. Mild COPD. 2. No consolidative change. 3. No pleural effusions.
[2022-08-03 22:55] LABS: Appearance,Urine Clear (Clear); Bacteria,Urine Rare /hpf; Bilirubin,Urine Negative (Negative); Blood,Urine Negative (Negative); Color,Urine Light Yellow; Glucose,Urine (UA) Negative (Negative); Ketones,Urine Trace (Negative); Leukocyte Esterase,Urine Large (Negative); Mucus,Urine Rare /hpf; Nitrite,Urine Negative (Negative); PH, Urine 5.5 (5.0-8.0); Protein,Urine Negative (Negative); RBC,Urine 6 /hpf (0-5); Specific Gravity,Urine 1.008 (1.001-1.035); Squamous Epithelial Cell,Urine 2 /hpf (0-4); Transitional Epi Cells,Urine <1 /hpf (0-1); Urobilinogen,Urine <2.0 mg/dL (<2.0); WBC,Urine 12 /hpf (0-5)
[2022-08-03] MEDS ORDERED: NALOXONE 0.4 MG/ML 1 ML VIAL IV PRN (23:33)
--- NOTE | 2022-08-03 23:35 | ED ---
General Adult HPI - General Chief complaint: Arrhythmia/Palpitations Stated complaint: A FIB Time Seen by Provider: 08/03/22 21:25 Source: patient, RN notes reviewed, old records reviewed Mode of arrival: wheelchair - History of Present Illness Initial comments: Patient is a 71-year-old female who presents emergency Department complaining of possible A. fib earlier today. States she is working outside all day in the yard, and begin experiencing chest discomfort which felt more like heart palpitations. She put on a pulse ox at that time and her heart rate was 160. Denied any other associated symptoms. Does have a history of COPD, A. fib and is on blood thinners. No history of cardiac stents. Symptoms began around 6 PM, and eventually presented for evaluation. Denied any diaphoresis at the time of the event as well as denied any nausea. EKG upon arrival showed A. fib with RVR. Currently is normal sinus rhythm. His no acute complaints at this time. Presents for further evaluation at this time. States she typically is not in A. fib, and last time she was in A. fib was when she had surgery one year ago. - Related Data Home Medications Medication Instructions Recorded Confirmed Apixaban [Eliquis] 5 mg PO BID 01/20/21 08/03/22 Ezetimibe [Zetia] 10 mg PO HS 01/20/21 08/03/22 Fluticasone Propion/Salmeterol 1 puff INHALATION RT-BID 01/20/21 08/03/22 [Fluticasone-Salmeterol 250-50] Levothyroxine Sodium [Synthroid] 75 mcg PO DAILY 01/20/21 08/03/22 Rosuvastatin Calcium 5 mg PO HS 01/20/21 08/03/22 Metoprolol Tartrate [Lopressor] 25 mg PO BID 08/03/22 08/03/22 Allergies Allergy/AdvReac Type Severity Reaction Status Date / Time Penicillins Allergy Nausea & Verified 08/03/22 22:06 Vomiting codeine AdvReac Nausea & Verified 08/03/22 22:06 Vomiting Review of Systems ROS Statement: Those systems with pertinent positive or pertinent negative responses have been documented in the HPI. Review of Systems: CONST: Denies fever EYES: Denies blurry vision ENT: Denies nasal congestion C/V: Denies Chest pain RESP: Denies shortness of breath GI: Denies abdominal pain : Denies dysuria SKIN: Denies rash. MSK: Denies joint pain. NEURO: Denies headache ROS Other: All systems not noted in ROS Statement are negative. 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 History of Any Multi-Drug Resistant Organisms: C-DIFF, MRSA Date of last positivie culture/infection: 01/24/2016 MDRO Source:: stool Past Surgical History: Tubal Ligation Additional Past Surgical History / Comment(s): Cancerous polyps removed from thr oat 11/02/2015, PICC line insertion (since removed) to tx MRSA infection, mediport, colonoscopy with benign polypectomies. Past Anesthesia/Blood Transfusion Reactions: No Reported Reaction Past Psychological History: Anxiety Smoking Status: Former smoker Past Alcohol Use History: Occasional Past Drug Use History: None Reported - Past Family History Father Family Medical History: Cancer Additional Family Medical History / Comment(s): bladder cancer Mother Family Medical History: Congestive Heart Failure (CHF) General Exam - General Exam Comments Initial Comments: General: Appears in no acute distress. HEAD: Normal with no signs of head trauma. EYES: PERRLA, EOMI, conjunctiva normal, no discharge. ENT: Hearing grossly intact, normal oropharynx. RESPIRATORY: Clear breath sounds bilaterally. No wheezes, rales, or rhonchi. C/V: Regular rate and rhythm. S1 and S2 auscultated, no edema, peripheral pulses 2+ and intact throughout ABD: Abd is soft, nontender, nondistended EXT: Normal range of motion, no obvious deformity SKIN: No rashes or lesions observed on exposed skin. NEURO: Alert and oriented 4. No focal deficits. Course Vital Signs 08/03/22 20:31 Temperature 97.7 F Pulse Rate 106 H Respiratory 18 Rate Blood Pressure 105/59 O2 Sat by Pulse 96 Oximetry Procedures - [place] Protocol (Time Out) Nurse: Lainey Weller Medical Decision Making - Medical Decision Making Was pt. sent in by a medical professional or institution (, PA, STAFF ANESTHESIOLOGIST, urgent care, hospital, or snf...) When possible be specific @ -No Did you speak to anyone other than the patient for history (EMS, parent, family, police, friend...)? What history was obtained from this source @ -No Did you review nursing and triage notes (agree or disagree)? Why? @ -I reviewed and agree with nursing and triage notes Were old charts reviewed (outside hosp., previous admission, EMS record, old EKG, old radiological studies, urgent care reports/EKG's, snf records)? Report findings @ -Old EKGs reviewed, including from January 2021 Differential Diagnosis (chest pain, altered mental status, abdominal pain women, abdominal pain men, vaginal bleeding, weakness, fever, dyspnea, syncope, headache, dizziness, GI bleed, back pain, seizure, CVA, palpatations, mental health, musculoskeletal)? @ -Differential Palpitations Ventricular arrhythmias, atrial arrhythmias, myocardial infarction, anemia, thyrotoxicosis, electrolyte imbalance, hypokalemia, pulmonary embolism, pulmonary disease, drugs, alcohol, anxiety, stress.... This is not meant to be an all-inclusive list. EKG interpreted by me (3pts min.). @ -As above X-rays interpreted by me (1pt min.). @ -X-ray reveals no obvious acute cardiopulmonary process. CT interpreted by me (1pt min.). @ -None done U/S interpreted by me (1pt. min.). @ -None done What testing was considered but not performed or refused? (CT, X-rays, U/S, labs)? Why? @ -None What meds were considered but not given or refused? Why? @ -None Did you discuss the management of the patient with other professionals (professionals i.e. , PA, STAFF ANESTHESIOLOGIST, lab, RT, psych nurse, social science instructor, piped pocket machine operator, teacher, medical laboratory technical officer, assistant case manager)? Give summary @ -Discussed with the admitting physician, Dr. Mills who accepted the patient. Was smoking cessation discussed for >3mins.? @ -No Was critical care preformed (if so, how long)? @ -No Were there social determinants of health that impacted care today? How? (Homelessness, low income, unemployed, alcoholism, drug addiction, transportation, low edu. Level, literacy, decrease access to med. care, [facility], rehab)? @ -No Was there de-escalation of care discussed even if they declined (Discuss DNR or withdrawal of care, Hospice)? DNR status @ -No What co-morbidities impacted this encounter? (DM, HTN, Smoking, COPD, CAD, Cancer, CVA, ARF, Chemo, Hep., AIDS, mental health diagnosis, sleep apnea, morbid obesity)? @ -Atrial fibrillation Was patient admitted / discharged? Hospital course, mention meds given and route, prescriptions, significant lab abnormalities, going to OR and other pertinent info. @ -Based on the patient's presentation and physical exam, presented with palpitations. Initial EKG did show that the patient went back into A. fib with RVR but the time I evaluated the patient in the room, she was in normal sinus rhythm. Currently is asymptomatic. However EKG does show findings concerning for new T-wave inversions in leads II, III, aVF. These are acute. She denies any chest pain. We will obtain cardiac workup. She was in agreement this plan. She will receive 324 milligrams of aspirin as well as 1 L fluid bolus. Vital signs within acceptable limits. Chest x-ray showed no obvious acute cardio pulmonary process. EKGs were discussed as above, and she'll be initial A. fib with RVR that resolved with a history of A. fib, however has new T wave inversions in leads II, III, aVF. Patient's labs are remarkable for an elevated troponin of 0.066. Remainder of the labs are within acceptable limits. Slight leukocytosis which is likely reactive. We discussed the results. I would like to admit the patient for further monitoring any dilation to cardiology due to the new EKG changes as well as the slight troponin elevation. Troponin elevation could be secondary to the front of atrial fibrillation with RVR. We'll continue to trend it. She was in agreement with this plan. We will continue her home Eliquis at this time. Cardiology consulted. I spoke with the admitting physician, Dr. Mills who accepted the admission. She was admitted to a telemetry bed. Undiagnosed new problem with uncertain prognosis? @ -No Drug Therapy requiring intensive monitoring for toxicity (Heparin, Nitro, Insulin, Cardizem)? @ -No Were any procedures done? @ -No Diagnosis/symptom? @ -A. fib Acute, or Chronic, or Acute on Chronic? @ -Chronic Uncomplicated (without systemic symptoms) or Complicated (systemic symptoms)? @ -Uncomplicated Side effects of treatment? @ -No Exacerbation, Progression, or Severe Exacerbation? @ -No Poses a threat to life or bodily function? How? (Chest pain, USA, IA, pneumonia, PE, COPD, DKA, ARF, appy, cholecystitis, CVA, Diverticulitis, Homicidal, Suicidal, threat to staff... and all critical care pts) @ -No Diagnosis/symptom? @ -New T wave inversions on EKG, elevated troponin Acute, or Chronic, or Acute on Chronic? @ -Acute Uncomplicated (without systemic symptoms) or Complicated (systemic symptoms)? @ -Uncomplicated Side effects of treatment? @ -none Exacerbation, Progression, or Severe Exacerbation] @ -no Poses a threat to life or bodily function? @ -Potentially, could represent ACS which can be life-threatening. - Lab Data Result diagrams: 08/03/22 22:04 08/03/22 22:04 Lab Results 08/03/22 08/03/22 08/03/22 Range/Units 22:04 22:04 22:04 WBC 11.6 H (3.8-10.6) k/uL RBC 3.88 (3.80-5.40) m/uL Hgb 12.0 (11.4-16.0) gm/dL Hct 35.7 (34.0-46.0) % MCV 91.9 (80.0-100.0) fL MCH 31.0 (25.0-35.0) pg MCHC 33.7 (31.0-37.0) g/dL RDW 14.0 (11.5-15.5) % Plt Count 369 (150-450) k/uL MPV 7.5 Neutrophils % 83 % Lymphocytes % 10 % Monocytes % 4 % Eosinophils % 1 % Basophils % 0 % Neutrophils # 9.6 H (1.3-7.7) k/uL Lymphocytes # 1.1 (1.0-4.8) k/uL Monocytes # 0.5 (0-1.0) k/uL Eosinophils # 0.1 (0-0.7) k/uL Basophils # 0.0 (0-0.2) k/uL PT 10.4 (9.0-12.0) sec INR 1.0 (<1.2) APTT 26.5 (22.0-30.0) sec Sodium (137-145) mmol/L Potassium (3.5-5.1) mmol/L Chloride (98-107) mmol/L Carbon Dioxide (22-30) mmol/L Anion Gap mmol/L BUN (7-17) mg/dL Creatinine (0.52-1.04) mg/dL Est GFR (CKD-EPI)AfAm (>60 ml/min/1.73 sqM) Est GFR (CKD-EPI)NonAf (>60 ml/min/1.73 sqM) Glucose (74-99) mg/dL Calcium (8.4-10.2) mg/dL Magnesium (1.6-2.3) mg/dL Total Bilirubin (0.2-1.3) mg/dL AST (14-36) U/L ALT (4-34) U/L Alkaline Phosphatase (38-126) U/L Troponin I (0.000-0.034) ng/mL Total Protein (6.3-8.2) g/dL Albumin (3.5-5.0) g/dL Urine Color Light Yellow Urine Appearance Clear (Clear) Urine pH 5.5 (5.0-8.0) Ur Specific [place] 1.008 (1.001-1.035) Urine Protein Negative (Negative) Urine Glucose (UA) Negative (Negative) Urine Ketones Trace H (Negative) Urine Blood Negative (Negative) Urine Nitrite Negative (Negative) Urine Bilirubin Negative (Negative) Urine Urobilinogen <2.0 (<2.0) mg/dL Ur Leukocyte Esterase Large H (Negative) Urine RBC 6 H (0-5) /hpf Urine WBC 12 H (0-5) /hpf Ur Squamous Epith Cells 2 (0-4) /hpf Ur Transition Epith Cell <1 (0-1) /hpf Urine Bacteria Rare H (None) /hpf Urine Mucus Rare H (None) /hpf 08/03/22 08/03/22 Range/Units 22:04 22:04 WBC (3.8-10.6) k/uL RBC (3.80-5.40) m/uL Hgb (11.4-16.0) gm/dL Hct (34.0-46.0) % MCV (80.0-100.0) fL MCH (25.0-35.0) pg MCHC (31.0-37.0) g/dL RDW (11.5-15.5) % Plt Count (150-450) k/uL MPV Neutrophils % % Lymphocytes % % Monocytes % % Eosinophils % % Basophils % % Neutrophils # (1.3-7.7) k/uL Lymphocytes # (1.0-4.8) k/uL Monocytes # (0-1.0) k/uL Eosinophils # (0-0.7) k/uL Basophils # (0-0.2) k/uL PT (9.0-12.0) sec INR (<1.2) APTT (22.0-30.0) sec Sodium 132 L (137-145) mmol/L Potassium 4.4 (3.5-5.1) mmol/L Chloride 97 L (98-107) mmol/L Carbon Dioxide 25 (22-30) mmol/L Anion Gap 10 mmol/L BUN 15 (7-17) mg/dL Creatinine 0.73 (0.52-1.04) mg/dL Est GFR (CKD-EPI)AfAm >90 (>60 ml/min/1.73 sqM) Est GFR (CKD-EPI)NonAf 83 (>60 ml/min/1.73 sqM) Glucose 124 H (74-99) mg/dL Calcium 9.0 (8.4-10.2) mg/dL Magnesium 2.0 (1.6-2.3) mg/dL Total Bilirubin 0.4 (0.2-1.3) mg/dL AST 22 (14-36) U/L ALT 16 (4-34) U/L Alkaline Phosphatase 84 (38-126) U/L Troponin I 0.066 H* (0.000-0.034) ng/mL Total Protein 6.8 (6.3-8.2) g/dL Albumin 3.9 (3.5-5.0) g/dL Urine Color Urine Appearance (Clear) Urine pH (5.0-8.0) Ur Specific [place] (1.001-1.035) Urine Protein (Negative) Urine Glucose (UA) (Negative) Urine Ketones (Negative) Urine Blood (Negative) Urine Nitrite (Negative) Urine Bilirubin (Negative) Urine Urobilinogen (<2.0) mg/dL Ur Leukocyte Esterase (Negative) Urine RBC (0-5) /hpf Urine WBC (0-5) /hpf Ur Squamous Epith Cells (0-4) /hpf Ur Transition Epith Cell (0-1) /hpf Urine Bacteria (None) /hpf Urine Mucus (None) /hpf - EKG Data -: EKG Interpreted by Me EKG Comments: 12-lead Electrocardiogram Interpretation Note EKG was reviewed and interpreted by myself. 12-lead ECG performed at 2036 is interpreted by me as revealing A. fib with RVR at a rate of 146 beats per minute. [place] is normal. QRS duration 75 ms, QTc is 362 ms.. Patient states some T-wave inversions in the leads II, 3, aVF as well as somewhat in the lateral leads. Lateral leads are chronic. May be secondary to the A. fib.. R wave progression across the precordium was satisfactory. 12-lead Electrocardiogram Interpretation Note EKG was reviewed and interpreted by myself. 12-lead ECG performed at 2223 is interpreted by me as revealing normal sinus rhythm at a rate of 72 beats per minute. [place] is normal. MT interval is 131 ms, QRS duration of 73 ms, QTc is 434 ms.. T-wave inversions located in leads II, 3, aVF. Chronic T-wave inversions in on prior EKGs located in leads V3 through V6.. R wave progression across the precordium was satisfactory. .T-wave inversions in the inferior leads II, 3, aVF new compared to EKG from January 2021. Disposition Clinical Impression: Atrial fibrillation, Elevated troponin, Acute electrocardiography changes, T wave inversion in EKG Disposition: ADMITTED IP TO THIS HOSP Condition: Stable Time of Disposition: 23:22
--- NOTE | 2022-08-04 04:26 | P.HPIM ---
History of Present Illness H&P Date: 08/03/22 Chief Complaint: palpitations 71 year old female with afib on eliquis , COPD patient coming in due to have chest discomfort and palpitations. she was doing some yard work all day and exerted herself. then suddenly she was experiencing some chest discomfort and palpitations. no nausea no vomiting no dizziness, no SOB, she checked her pulse ox and found that her heart rate in the 170s range . and decided to come in for evaluation she claims to be compliant with her medications, denies any history of CAD. she denies any fever, chills, denies any abd pain or changes in bowel or urinary habits, denies any GI bleeding denies smoking, or illicit drugs denies any recent travel or hospital stay . Review of Systems Pertinent positives as noted in HPI. 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 last time chemo received was 2 weeks ago, dy sphagia, hoarseness, bronchitis, hemorrhoids. History of Any Multi-Drug Resistant Organisms: C-DIFF, MRSA Date of last positivie culture/infection: 01/24/2016 MDRO Source:: stool Past Surgical History: Tubal Ligation Additional Past Surgical History / Comment(s): Cancerous polyps removed from throat 11/02/2015, PICC line insertion (since removed) to tx MRSA infection, mediport, colonoscopy with benign polypectomies. Past Anesthesia/Blood Transfusion Reactions: No Reported Reaction Past Psychological History: Anxiety Smoking Status: Former smoker Past Alcohol Use History: Occasional Past Drug Use History: None Reported - Past Family History Father Family Medical History: Cancer Additional Family Medical History / Comment(s): bladder cancer Mother Family Medical History: Congestive Heart Failure (CHF) Medications and Allergies Home Medications Medication Instructions Recorded Confirmed Type Apixaban [Eliquis] 5 mg PO BID 01/20/21 08/03/22 History Ezetimibe [Zetia] 10 mg PO HS 01/20/21 08/03/22 History Fluticasone Propion/Salmeterol 1 puff INHALATION RT-BID 01/20/21 08/03/22 History [Fluticasone-Salmeterol 250-50] Levothyroxine Sodium [Synthroid] 75 mcg PO DAILY 01/20/21 08/03/22 History Rosuvastatin Calcium 5 mg PO HS 01/20/21 08/03/22 History Metoprolol Tartrate [Lopressor] 25 mg PO BID 08/03/22 08/03/22 History Allergies Allergy/AdvReac Type Severity Reaction Status Date / Time Penicillins Allergy Nausea & Verified 08/03/22 22:06 Vomiting codeine AdvReac Nausea & Verified 08/03/22 22:06 Vomiting Physical Exam Vitals: Vital Signs Temp Pulse Resp BP Pulse Ox 08/04/22 01:00 62 16 08/04/22 00:00 61 16 121/66 97 08/03/22 20:31 97.7 F 106 H 18 105/59 96 Intake and Output 08/03/22 08/03/22 08/04/22 14:59 22:59 06:59 Other: Weight 49.895 kg Constitutional: No acute distress, conversant, pleasant Eyes: Anicteric sclerae, moist conjunctiva, Pupils equal round reactive to light ENMT: NC/AT Oropharynx clear, no erythema, or exudates Neck: Supple, no masses, or JVD No carotid bruits No thyromegaly Lungs: Clear to auscultation Clear to percussion Normal respiratory effort, no accessory muscle use Cardiovascular: Heart regular in rate and rhythm, No murmurs, gallops, or rubs No peripheral edema Abdominal: Soft Nontender, no guarding, rebound or rigidity Abdomen moving with respiration Normoactive bowel sounds No hepatomegaly, No splenomegaly No palpable mass No abdominal wall hernia noted Skin: Normal temperature, tone, texture, turgor No induration No subcutaneous nodules No rash, lesions No ulcers Extremities: No digital cyanosis No clubbing Pedal pulses intact and symmetrical Radial pulses intact and symmetrical No calf tenderness Psychiatric: Alert and oriented to person, place and time Appropriate affect fair judgment Neuro Muscles Strength 5/5 in all 4 extremities Sensation to light touch grossly present throughout Cranial nerves II-XII grossly intact Lymphatics: no palpable cervical or supraclavicular lymph nodes Results CBC & Chem 7: 08/03/22 22:04 08/03/22 22:04 Labs: Abnormal Lab Results - Last 24 Hours (Table) 05/11/23 05/11/23 05/11/23 Range/Units 22:04 22:04 22:04 WBC 11.6 H (3.8-10.6) k/uL Neutrophils # 9.6 H (1.3-7.7) k/uL Sodium 132 L (137-145) mmol/L Chloride 97 L (98-107) mmol/L Glucose 124 H (74-99) mg/dL Troponin I (0.000-0.034) ng/mL Urine Ketones Trace H (Negative) Ur Leukocyte Esterase Large H (Negative) Urine RBC 6 H (0-5) /hpf Urine WBC 12 H (0-5) /hpf Urine Bacteria Rare H (None) /hpf Urine Mucus Rare H (None) /hpf 08/03/22 08/04/22 Range/Units 22:04 01:00 WBC (3.8-10.6) k/uL Neutrophils # (1.3-7.7) k/uL Sodium (137-145) mmol/L Chloride (98-107) mmol/L Glucose (74-99) mg/dL Troponin I 0.066 H* 0.172 H* (0.000-0.034) ng/mL Urine Ketones (Negative) Ur Leukocyte Esterase (Negative) Urine RBC (0-5) /hpf Urine WBC (0-5) /hpf Urine Bacteria (None) /hpf Urine Mucus (None) /hpf Assessment and Plan Assessment: 71 year old female with afib and COPD , she comes in due to palpitations , I discussed the case with ED doc, she was initially found in afib with RVR, however, after rate control, Her EKG was showing new T wave inversion with trending up troponin, I accepted the admission for cardiac workup afib with RVR NSTEMI EKG showing T wave inversion inferolateral leads. nitro prn for chest pain Aspirin 325, contiue with baby aspirin daily atorvastatin 10 mg po daily continue Zetia metoprolol 25 mg bid continue with eliquis [facility] consult trend trops 0.066 --> 0.172 hypothryroid , continue with levothyroxine COPD compensated resume home inhalers symbicort PRN duoneb supplemental oxygen as needed full code DVT PPX on eliquis for afib
[2022-08-04 04:35] LABS: Basophils % (A) 0 %; Eosinophils # (A) 0.1 k/uL (0-0.7); Eosinophils % (A) 1 %; HCT 36.2 % (34.0-46.0); HGB 11.7 gm/dL (11.4-16.0); Lymphocytes # (A) 1.6 k/uL (1.0-4.8); Lymphocytes % (A) 20 %; MCH 30.4 pg (25.0-35.0); MCHC 32.4 g/dL (31.0-37.0); MCV 93.6 fL (80.0-100.0); Mean Platelet Volume 7.4; Monocytes # (A) 0.3 k/uL (0-1.0); Monocytes % (A) 4 %; Neutrophils # (A) 5.5 k/uL (1.3-7.7); Neutrophils % (A) 71 %; Platelet Count 373 k/uL (150-450); RBC 3.87 m/uL (3.80-5.40); RDW 13.9 % (11.5-15.5); WBC 7.7 k/uL (3.8-10.6)
[2022-08-04 04:46] LABS: African American GFR (CKD) >90 (>60 ml/min/1.73 sqM); Anion Gap 12 mmol/L; Blood Urea Nitrogen 14 mg/dL (7-17); Calcium 9.2 mg/dL (8.4-10.2); Carbon Dioxide 22 mmol/L (22-30); Chloride 101 mmol/L (98-107); Glucose 95 mg/dL (74-99); Non-African American GFR(CKD) 89 (>60 ml/min/1.73 sqM); Potassium 4.6 mmol/L (3.5-5.1); Sodium 135 mmol/L (137-145)
[2022-08-04] MEDS: LEVOTHYROXINE 75 MCG TAB PO SCH (05:56)
[2022-08-04] MEDS ORDERED: CAFFEINE CITRATE 60 MG/3 ML VIAL IV PRN (06:55)
[2022-08-04] MEDS ORDERED: AMINOPHYLLINE 500 MG/20 ML VIAL IV PRN (06:55)
[2022-08-04] MEDS ORDERED: REGADENOSON 0.4 MG/5 ML SYRINGE IV PRN (06:55)
[2022-08-04] MEDS: SYMBICORT 80-4.5 MCG INHALER INHALATION SCH ×2 (08:02→21:14)
[2022-08-04] MEDS: METOPROLOL TARTRATE 25 MG TAB PO SCH ×2 (09:06→20:09)
[2022-08-04] MEDS: APIXABAN 5 MG TAB PO SCH ×2 (09:06→20:08)
[2022-08-04] MEDS: ASPIRIN 81 MG PO SCH (09:06)
--- NOTE | 2022-08-04 10:43 | CONS ---
CONSULTATION HISTORY OF PRESENT ILLNESS: Leydi is a 71-year-old lady with history of paroxysmal atrial fibrillation and hypothyroidism along with dyslipidemia who presented to hospital with elevated heart rate. She really did not have any symptoms. She had mild palpitations, checked her heart rate that was elevated, came in to the ER where she was found to be in atrial fibrillation with rapid ventricular rate and subsequently she converted to sinus rhythm with extensive T-wave inversions. Her old EKG also showed ST-T wave changes. Her troponins came back mildly elevated at 0.6, 0.1 and 0.1. The patient at the time of my evaluation is asymptomatic. Denies chest pain or difficulty in breathing. EKG changes are probably chronic. The troponin elevation could be related to supply demand mismatch from her AFib with RVR. She will continue the Eliquis and the beta tequila that she is on and I advised her to undergo a Lexiscan and if she has ischemia, we will consider cardiac catheterization. If her LV function is normal and she does not have significant ischemia, she will be treated with optimal medical therapy for possible underlying CAD. PAST MEDICAL HISTORY: Significant for paroxysmal atrial fibrillation. MEDICATIONS: 1. Lopressor 25 b.i.d. 2. Synthroid. 3. Zetia. 4. Eliquis 5 b.i.d. 5. Crestor 5 daily. ALLERGIES: Allergic to codeine and penicillin. FAMILY HISTORY: Negative for premature coronary artery disease. SOCIAL HISTORY: Negative for smoking, EtOH abuse, or drug abuse. REVIEW OF SYSTEMS: A review of systems has been performed, pertinence are as documented. PHYSICAL EXAMINATION: GENERAL: Comfortable at rest. VITAL SIGNS: Stable. NECK: There is no jugular venous distention. Carotid upstroke is normal. There is no bruit. CHEST: Reveals good air entry bilaterally. HEART: Reveals first and second heart sounds. No gallop, no murmur. ABDOMEN: Soft, nontender. EXTREMITIES: Did not reveal any edema. Peripheral pulses are felt. LABORATORY DATA: Shows that the hemoglobin is 11.7, platelet count is 373, potassium is 4.6, creatinine is 0.6. ASSESSMENT AND PLAN: 1. Paroxysmal atrial fibrillation with rapid ventricular rate. 2. Elevated troponin. 3. Dyslipidemia. PLAN: The patient is currently in sinus rhythm, free of symptoms. Her ST-T wave changes are chronic with some worsening on the current EKG the exact significance of which is unclear. I will obtain a Lexiscan and if this shows ischemia, I will consider cardiac catheterization. NEREIDA / IJN: [id number] /
--- NOTE | 2022-08-04 12:03 | CA ---
Transthoracic Echo Report Name: Leydi Riddle Age: 71 Gender: F : 1950 Exam Date: 08/04/2022 08:22 Exam Location: [facility] Ht (in): 63 Wt (lb): 110 Ordering Physician: Sterling Candelaria MD ([id number]) Attending/Referring Phys: Teagan ZIMMERMAN Certified Technician Specialist Ashu Boston RDCS Procedure CPT: Indications: atrial fibrillation Cardiac Hx: Technical Quality: Fair Contrast 1: Total Dose (mL): Contrast 2: Total Dose (mL): MEASUREMENTS (Male / Female) Normal Values 2D ECHO LV Diastolic Diameter PLAX 3.3 cm 4.2 - 5.9 / 3.9 - 5.3 cm LV Systolic Diameter PLAX 2.1 cm LV Fractional Shortening PLAX 36.2 % IVS Diastolic Thickness 0.7 cm 0.6 - 1.0 / 0.6 - 0.9 cm IVS Systolic Thickness 1.4 cm LVPW Diastolic Thickness 1.0 cm 0.6 - 1.0 / 0.6 - 0.9 cm LVPW Systolic Thickness 1.3 cm LV Relative Wall Thickness 0.5 RV Internal Dim ED PLAX 2.1 cm LVOT Diameter 1.7 cm LA Systolic Diameter LX 2.6 cm 3.0 - 4.0 / 2.7 - 3.8 cm LV Diastolic Volume MOD BP 38.2 cm??? 67 - 155 / 56 - 104 cm??? LV Systolic Volume MOD BP 16.1 cm??? 22 - 58 / 19 - 49 cm??? LV Ejection Fraction MOD BP 57.8 % >= 55 % LV Stroke Volume MOD BP 22.1 cm??? LV Diastolic Volume MOD 4C 40.5 cm??? LV Systolic Volume MOD 4C 13.8 cm??? LV Ejection Fraction MOD 4C 66.0 % LV Stroke Volume MOD 4C 26.7 cm??? LV Diastolic Length 4C 5.7 cm LV Systolic Length 4C 4.3 cm LV Diastolic Volume MOD 2C 30.9 cm??? LV Systolic Volume MOD 2C 16.1 cm??? LV Ejection Fraction MOD 2C 48.0 % LV Stroke Volume MOD 2C 14.8 cm??? LV Diastolic Length 2C 4.8 cm LV Systolic Length 2C 5.1 cm M-MODE Aortic Root Diameter MM 2.9 cm LA Systolic Diameter MM 3.2 cm LA Ao Ratio MM 1.1 MV E Point Septal Separation 1.6 cm AV Cusp Separation MM 1.2 cm DOPPLER AV Peak Velocity 105.1 cm/s AV Peak Gradient 4.4 mmHg MV Deceleration Sterling 282.5 cm/s??? Mitral E Point Velocity 68.4 cm/s Mitral A Point Velocity 38.6 cm/s Mitral E to A Ratio 1.8 MV Deceleration Time 242.1 ms MV E' Velocity 6.5 cm/s Mitral E to MV E' Ratio 10.4 TR Peak Velocity 326.0 cm/s TR Peak Gradient 42.5 mmHg Right Ventricular Systolic Press 52.5 mmHg PV Peak Velocity 93.9 cm/s PV Peak Gradient 3.5 mmHg FINDINGS Left Ventricle Left ventricular ejection fraction is estimated at 50-55 %. Normal left ventricular wall motion. Right Ventricle Normal right ventricular size and function. RVSP- 53 mm Hg. Moderate right ventricular hypertrophy Right Atrium Mild right atrial dilatation. Left Atrium Mild left atrial dilatation. Mitral Valve Structurally normal mitral valve. No mitral stenosis, regurgitation or prolapse. Aortic Valve Trileaflet aortic valve. No aortic stenosis. No aortic regurgitation. Tricuspid Valve Structurally normal tricuspid valve. [id number] tricuspid regurgitation. Pulmonic Valve Structurally normal pulmonic valve. Pericardium Small pericardial effusion. Aorta Normal size aortic root and proximal ascending aorta. CONCLUSIONS Left ventricular ejection fraction 50-55% Moderate right ventricular hypertrophy RVSP 53 Mildly dilated left and right atria No mitral regurgitation Mild to moderate tricuspid regurgitation Small pericardial effusion Previewed by: Dr. Rodrick Wilkinson DO (Electronically Signed) Final Date: 04 Aug 2022 12:03
--- NOTE | 2022-08-04 14:27 | NM ---
EXAMINATION TYPE: NM stress lexiscan cardiolite DATE OF EXAM: 08/04/2022 COMPARISON: NONE CLINICAL INDICATION: Female, 71 years old with history of CP; TECHNIQUE: After the intravenous administration of 9.7 mCi Tc 99m Sestamibi - Cardiolite resting SPE CT images acquired 45 minutes post injection. The patient received 0.4mg Lexiscan, 25.7 mCi Tc 99m Sestamibi - Stress images obtained [address] injection FINDINGS: Review of stress and rest SPECT images demonstrates no distinct perfusion abnormality. Gated analysi s shows normal wall motion with an estimated left ventricular ejection fraction of 78 %. IMPRESSION: No scintigraphic evidence for reversible ischemia.
--- NOTE | 2022-08-04 18:51 | P.PN ---
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 She presented to the emergency department with a chief complaint of palpitations. She underwent full evaluation in the emergency department. CBC revealed mild leukocytosis with WBC count of 11.6, coagulation profile normal findings. BMP revealing mild hyponatremia with sodium 132 and chloride 97. Troponins elevated at 0.066. EKG completed revealing normal sinus rhythm at 72 bpm with anterior, inferior, and lateral T-wave inversion in leads I, II, III, aVF, and V3 through V6 concerning for wall inferior ischemia upon personal review and interpretation. Patient did have previous T-wave inversion in lateral and anterior leads but inferior T waves inversion is new when compared to EKG completed 01/28/21. Patient was admitted under our services of consultation to cardiology. Troponins trended overnight resulting at 0.066, 0.172, and 0.172. Physical exam: Vital signs reviewed and stable. General: Nontoxic, no distress and appears stated age. Derm: Skin warm and dry, normal coloration for ethnicity. Head: Atraumatic, normocephalic and symmetric. Eyes: EOMs intact, no lid lag, and anicteric sclera Mouth: no lip lesions, mucus membranes moist Cardiovascular: regular rate and rhythm with normal S1S2, no murmur, positive posterior tibial pulses bilaterally, and cap refill < 2 seconds. Lungs: Respirations even, regular, and unlabored on room air. Lungs CTA bilaterally, no rhonchi, no rales, no wheezing, and no accessory muscle usage. Abdominal: soft, nontender to palpation, no guarding, no appreciable organomegaly Ext: ROM intact. No gross muscle atrophy, no edema, no contractures Neuro: Speech clear, face symmetrical and CN II-XII grossly intact with no noted focal neuro deficits Psych: Alert and oriented to person, place, time, and situation. Appropriate and pleasant affect. 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 CBC revealing resolution of leukocytosis with WBC count decreasing from 11.6 down to 7.7 as well as resolution of hyponatremia with sodium increasing from 132-135. -EKG completed revealing normal sinus rhythm at 72 bpm with anterior, inferior, and lateral T-wave inversion in leads I, II, III, aVF, and V3 through V6 concerning for wall inferior ischemia upon personal review and interpretation. Patient did have previous T-wave inversion in lateral and anterior leads but inferior T waves inversion is new when compared to EKG completed 01/28/21. -Troponins trended overnight resulting at 0.066, 0.172, and 0.172. -Cardiology evaluated and taking patient for stress test later today. -Echocardiogram was completed and awaiting results. -Continue with daily medication regimen with Eliquis 5 mg twice daily, Zetia 10 mg nightly, levothyroxine 75 g daily, metoprolol 25 mg twice daily, and rosuvastatin 5 mg nightly. CODE STATUS: Full code DVT prophylaxis: Eliquis, Discussed with: Patient and RN Anticipated discharge date: 24-[address]: Home Patient was seen independently by Nurse Pracitioner. This document was prepared using [employer] dictation software. Please allow for errors in quarantine inspector, while rare they do occur. Osman Jasmine NP rendered care for this patient independently, reviewed the findings and plan as documented in the note above. I did not physically speak with or examine the patient on this date. Objective - Vital Signs Vital signs: Vital Signs Temp 97.7 F 08/03/22 20:31 Pulse 69 08/04/22 07:37 Resp 18 08/04/22 07:37 BP 121/59 08/04/22 07:37 Pulse Ox 98 08/04/22 07:37 FiO2 Intake & Output 08/03/22 08/04/22 08/04/22 18:59 06:59 18:59 Weight 49.895 kg - Labs CBC & Chem 7: 08/04/22 04:15 08/04/22 04:15 Labs: Abnormal Lab Results - Last 24 Hours (Table) 08/03/22 08/03/22 08/03/22 Range/Units 22:04 22:04 22:04 WBC 11.6 H (3.8-10.6) k/uL Neutrophils # 9.6 H (1.3-7.7) k/uL Sodium 132 L (137-145) mmol/L Chloride 97 L (98-107) mmol/L Glucose 124 H (74-99) mg/dL Troponin I (0.000-0.034) ng/mL Urine Ketones Trace H (Negative) Ur Leukocyte Esterase Large H (Negative) Urine RBC 6 H (0-5) /hpf Urine WBC 12 H (0-5) /hpf Urine Bacteria Rare H (None) /hpf Urine Mucus Rare H (None) /hpf 08/03/22 08/04/22 08/04/22 Range/Units 22:04 01:00 04:15 WBC (3.8-10.6) k/uL Neutrophils # (1.3-7.7) k/uL Sodium (137-145) mmol/L Chloride (98-107) mmol/L Glucose (74-99) mg/dL Troponin I 0.066 H* 0.172 H* 0.172 H* (0.000-0.034) ng/mL Urine Ketones (Negative) Ur Leukocyte Esterase (Negative) Urine RBC (0-5) /hpf Urine WBC (0-5) /hpf Urine Bacteria (None) /hpf Urine Mucus (None) /hpf 08/04/22 Range/Units 04:15 WBC (3.8-10.6) k/uL Neutrophils # (1.3-7.7) k/uL Sodium 135 L (137-145) mmol/L Chloride (98-107) mmol/L Glucose (74-99) mg/dL Troponin I (0.000-0.034) ng/mL Urine Ketones (Negative) Ur Leukocyte Esterase (Negative) Urine RBC (0-5) /hpf Urine WBC (0-5) /hpf Urine Bacteria (None) /hpf Urine Mucus (None) /hpf
[2022-08-04] MEDS: ATORVASTATIN 10 MG TAB PO SCH (20:08)
[2022-08-04] MEDS: EZETIMIBE 10 MG TAB PO SCH (20:09)
[2022-08-05] MEDS: LEVOTHYROXINE 75 MCG TAB PO SCH (05:49)
[2022-08-05] MEDS: METOPROLOL TARTRATE 25 MG TAB PO SCH (08:10)
[2022-08-05] MEDS: ASPIRIN 81 MG PO SCH (08:10)
[2022-08-05] MEDS: APIXABAN 5 MG TAB PO SCH ×2 (08:10→20:12)
[2022-08-05] MEDS: FLECAINIDE 50 MG TAB PO SCH ×2 (09:47→20:12)
[2022-08-05] MEDS: SYMBICORT 80-4.5 MCG INHALER INHALATION SCH ×2 (09:52→20:30)
--- NOTE | 2022-08-05 14:16 | P.PN ---
Subjective Progress Note Date: 08/05/22 This is Kolby Carlisle NP, I'm dictating on behalf of Dr. Xiao's H&P and A&P. Patient was interviewed and examined. Patient is a pleasant 71-year-old female who presented to the hospital with new T-wave inversions, elevated troponins, and was in A. fib with RVR. Patient reports today that she's feeling okay. She is denying chest pain, shortness of breath, and swelling. Patient has remained in normal sinus rhythm. Lexiscan stress test demonstrated no signs of reversible ischemia. Troponin elevations are likely secondary to the rapid heart rate secondary to atrial fibrillation. Patient reports that this is the third time that she has gone into atrial fibrillation. She states that the prior 2 times before, she was controlled and converted with medication. GENERAL: Well-appearing, well-nourished and in no acute distress. NECK: Supple without JVD or thyromegaly. LUNGS: Breath sounds clear to auscultation bilaterally. Respiration equal and unlabored. No wheezes, rales or rhonchi. HEART: Regular rate and rhythm without murmurs, rubs or gallops. S1 and S2 heard. EXTREMITIES: Normal range of motion, no edema. No clubbing or cyanosis. Peripheral pulses intact and strong. VITALS: Temp 98.2, pulse 84, respirations 17, blood pressure 101/59, O2 saturation 94% on room air TELEMETRY: Normal sinus rhythm LABS: White count 7.7, hemoglobin 11.7, platelets 373, sodium 135, potassium 4.6, B1 14, creatinine 0.65, troponin 0.172 IMPRESSION: 1. Paroxysmal atrial fibrillation with rapid ventricular rate, currently normal sinus rhythm 2. Elevated troponin, plateaued 3. Dyslipidemia PLAN: Change metoprolol to Toprol-XL 12.5 mg daily. Start flecainide 50 mg twice a day, first dose now. EKG tomorrow morning. Recommend ablation as an outpatient. Further recommendations based on patient's clinical course. Objective - Vital Signs Vital signs: Vital Signs Temp 98.2 F 08/05/22 08:08 Pulse 67 08/05/22 12:00 Resp 18 08/05/22 12:00 BP 100/63 08/05/22 12:00 Pulse Ox 95 08/05/22 12:00 FiO2 Intake & Output 08/04/22 08/05/22 08/05/22 18:59 06:59 18:59 Intake Total 400 120 Balance 400 120 Intake: Oral 400 120 Other: # Voids 1 - Labs CBC & Chem 7: 08/04/22 04:15 08/04/22 04:15
--- NOTE | 2022-08-05 14:29 | P.PN ---
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 She presented to the emergency department with a chief complaint of palpitations. She underwent full evaluation in the emergency department. CBC revealed mild leukocytosis with WBC count of 11.6, coagulation profile normal findings. BMP revealing mild hyponatremia with sodium 132 and chloride 97. Troponins elevated at 0.066. EKG completed revealing normal sinus rhythm at 72 bpm with anterior, inferior, and lateral T-wave inversion in leads I, II, III, aVF, and V3 through V6 concerning for wall inferior ischemia upon personal review and interpretation. Patient did have previous T-wave inversion in lateral and anterior leads but inferior T waves inversion is new when compared to EKG completed 01/28/21. Patient was admitted under our services of consultation to cardiology. Troponins trended overnight resulting at 0.066, 0.172, and 0.172. Physical exam: Vital signs reviewed and stable. General: Nontoxic, no distress and appears stated age. Derm: Skin warm and dry, normal coloration for ethnicity. Head: Atraumatic, normocephalic and symmetric. Eyes: EOMs intact, no lid lag, and anicteric sclera Mouth: no lip lesions, mucus membranes moist Cardiovascular: regular rate and rhythm with normal S1S2, no murmur, positive posterior tibial pulses bilaterally, and cap refill < 2 seconds. Lungs: Respirations even, regular, and unlabored on room air. Lungs CTA bilaterally, no rhonchi, no rales, no wheezing, and no accessory muscle usage. Abdominal: soft, nontender to palpation, no guarding, no appreciable organomegaly Ext: ROM intact. No gross muscle atrophy, no edema, no contractures Neuro: Speech clear, face symmetrical and CN II-XII grossly intact with no noted focal neuro deficits Psych: Alert and oriented to person, place, time, and situation. Appropriate and pleasant affect. Assessment and Plan of Care: Elevated troponins Palpitations, believed to be secondary to run of A. 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 Patient did have previous T-wave inversion in lateral and anterior leads but inferior T waves inversion is new when compared to EKG completed 01/28/21. -Troponins trended overnight resulting at 0.066, 0.172, and 0.172. -Cardiology following, reviewed documentation in chart and they are starting patient on flecainide 50 mg every 12 hours this morning and recommending repeat EKG to be completed tomorrow morning then possible discharge. -Lexiscan stress test was completed showing no scintigraphic evidence for reversible ischemia. -Echocardiogram report reviewed Showing a preserved EF of 50-55% with moderate right ventricular hypertrophy, RVSP mildly dilated left and right atria, mild to moderate tricuspid regurgitation, and small pericardial effusion. -Continue with daily medication regimen with Eliquis 5 mg twice daily, Zetia 10 mg nightly, levothyroxine 75 g daily, metoprolol 25 mg twice daily, and rosuvastatin 5 mg nightly. CODE STATUS: Full code DVT prophylaxis: Eliquis, Discussed with: Patient and RN Anticipated discharge date: Likely tomorrow morning Anticipated discharge place: Home Patient was seen independently by Nurse Pracitioner. This document was prepared using hulu dictation software. Please allow for errors in it architecture consultant, while rare they do occur. Osman Jasmine NP rendered care for this patient independently, reviewed the findings and plan as documented in the note above. I did not physically speak with or examine the patient on this date. Objective - Vital Signs Vital signs: Vital Signs Temp 98.2 F 08/05/22 08:08 Pulse 84 08/05/22 08:08 Resp 17 08/05/22 08:08 BP 101/59 08/05/22 08:08 Pulse Ox 94 L 08/05/22 08:08 FiO2 Intake & Output 08/04/22 08/05/22 08/05/22 18:59 06:59 18:59 Intake Total 400 120 Balance 400 120 Intake: Oral 400 120 Other: # Voids 1 - Labs CBC & Chem 7: 08/04/22 04:15 08/04/22 04:15
[2022-08-05] MEDS: EZETIMIBE 10 MG TAB PO SCH (20:12)
[2022-08-05] MEDS: ATORVASTATIN 10 MG TAB PO SCH (20:12)
[2022-08-06] MEDS: LEVOTHYROXINE 75 MCG TAB PO SCH (05:31)
[2022-08-06] MEDS: FLECAINIDE 50 MG TAB PO SCH (08:24)
[2022-08-06] MEDS: ASPIRIN 81 MG PO SCH (08:24)
[2022-08-06] MEDS: APIXABAN 5 MG TAB PO SCH (08:24)
[2022-08-06 08:29] VITALS: BP 106/61; PULSE 75; RESP 18; TEMP 97.6
[2022-08-06] MEDS ORDERED: METOPROLOL SUCCINATE (ER) 25 MG TAB.ER.24H PO SCH (09:00)
[2022-08-06] MEDS: SYMBICORT 80-4.5 MCG INHALER INHALATION SCH (09:22)
--- NOTE | 2022-08-06 11:53 | P.DS ---
Providers Date of admission: 08/03/22 23:34 Expected date of discharge: 08/06/22 Attending physician: Parker Mills MD Consults: 08/03/22 23:33 Consult Physician Routine Consulting Provider: [facility] Reason/Comments: new t wave inversions, elevated troponin Do you want consulting provider notified?: Yes Primary care physician: Jennifer Mckinley DO Hospital Course: Discharge Diagnosis: Elevated troponins, believed to be secondary to A. fib RVR. Patient was started on flecainide 50 mg twice daily metoprolol decreased to 12.5 mg twice daily. Patient also continue with previous daily medication regimen with Eliquis 5 mg twice daily, Zetia 10 mg nightly, levothyroxine 75 g daily, and rosuvastatin 5 mg nightly. Patient to follow up with cardiology office as discussed for scheduling of cardiac ablation. Palpitations, believed to be secondary to run of A. 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 She presented to the emergency department with a chief complaint of palpitations. She underwent full evaluation in the emergency department. CBC revealed mild leukocytosis with WBC count of 11.6, coagulation profile normal findings. BMP revealing mild hyponatremia with sodium 132 and chloride 97. Troponins elevated at 0.066. EKG completed revealing normal sinus rhythm at 72 bpm with anterior, inferior, and lateral T-wave inversion in leads I, II, III, aVF, and V3 through V6 concerning for wall inferior ischemia upon personal review and interpretation. Patient did have previous T-wave inversion in lateral and anterior leads but inferior T waves inversion is new when compared to EKG completed 01/28/21. Patient was admitted under our services of consultation to cardiology. Troponins trended overnight resulting at 0.066, 0.172, and 0.172. TSH normal findings at 2.45.Cardiology evaluated and patient for Lexiscan stress test. Lexiscan stress test was completed showing no scintigraphic evidence or reversible ischemia. Echocardiogram report reviewed Showing a preserved EF of 50-55% with moderate right ventricular hypertrophy, RVSP mildly dilated left and right atria, mild to moderate tricuspid regurgitation, and small pericardial effusion. Patient was started on flecainide and metoprolol was decreased to 12.5 mg twice daily. Patient was monitored closely had no further episodes of chest pa in/palpitations. Cardiology recommending outpatient follow-up in their office for scheduling of cardiac ablation. Medically, patient is stable for discharge at this time. Prescription sent for Flecainide and metoprolol. Patient to follow up outpatient with PCP and auto garage mechanic. Physical exam: Vital signs reviewed and stable. General: Nontoxic, no distress and appears stated age. Derm: Skin warm and dry, normal coloration for ethnicity. Head: Atraumatic, normocephalic and symmetric. Eyes: EOMs intact, no lid lag, and anicteric sclera Mouth: no lip lesions, mucus membranes moist Cardiovascular: regular rate and rhythm with normal S1S2, no murmur, positive posterior tibial pulses bilaterally, and cap refill < 2 seconds. Lungs: Respirations even, regular, and unlabored on room air. Lungs CTA bilaterally, no rhonchi, no rales, no wheezing, and no accessory muscle usage. Abdominal: soft, nontender to palpation, no guarding, no appreciable organomegaly Ext: ROM intact. No gross muscle atrophy, no edema, no contractures Neuro: Speech clear, face symmetrical and CN II-XII grossly intact with no noted focal neuro deficits Psych: Alert and oriented to person, place, time, and situation. Appropriate and pleasant affect. A total of 33 minutes of time were spent preparing this complex discharge summary. Pt was discharged on 08/06/22 at 11:52 AM Patient was seen independently by Nurse Practitioner. This document was prepared using [email or web address] dictation software. Please allow for errors in oil well services superintendent while rare they do occur. Osman Jasmine NP rendered care for this patient independently, reviewed the findings and plan as documented in the note above. I did not physically speak with or examine the patient on this date. Patient Condition at Discharge: Stable Plan - Discharge Summary New Discharge Prescriptions: New Flecainide [Tambocor] 50 mg PO Q12HR 30 Days #60 tab Metoprolol Succinate (ER) [Toprol XL] 12.5 mg PO BID 60 Days #60 tab Continue Levothyroxine Sodium [Synthroid] 75 mcg PO DAILY Ezetimibe [Zetia] 10 mg PO HS Apixaban [Eliquis] 5 mg PO BID Fluticasone Propion/Salmeterol [Fluticasone-Salmeterol 250-50] 1 puff INHALATION RT-BID Rosuvastatin Calcium 5 mg PO HS Discontinued Metoprolol Tartrate [Lopressor] 25 mg PO BID Discharge Medication List Apixaban [Eliquis] 5 mg PO BID 01/20/21 [History] Ezetimibe [Zetia] 10 mg PO HS 01/20/21 [History] Fluticasone Propion/Salmeterol [Fluticasone-Salmeterol 250-50] 1 puff INHALATION RT-BID 01/20/21 [History] Levothyroxine Sodium [Synthroid] 75 mcg PO DAILY 01/20/21 [History] Rosuvastatin Calcium 5 mg PO HS 01/20/21 [History] Flecainide [Tambocor] 50 mg PO Q12HR 30 Days #60 tab 08/06/22 [Rx] Metoprolol Succinate (ER) [Toprol XL] 12.5 mg PO BID 60 Days #60 tab 08/06/22 [Rx] Follow up Appointment(s)/Referral(s): Florencio Xiao MD [STAFF PHYSICIAN] - 1 Week (call to schedule appt with Dr Daniel and discuss with him Ninoska seeing you and recommending ablation during your hospitalization. Call sunday to schedule let them know you [facility] for t wave inversion elevated troponin.) Jennifer Mckinley DO [Primary Care Provider] - 1-2 days (Call sunday to schedule let them know you were discharged [facility] for t wave inversion elevated troponin.) Patient Instructions/Handouts: A-fib (Atrial Fibrillation) (DC) Activity/Diet/Wound Care/Special Instructions: Activity: As tolerated. Take breaks as needed. Diet: Heart healthy and carb consistent diet. Avoid salts, or foods with hidden salts such as canned or boxed foods and frozen dinners. Extra salt makes your heart work harder and traps the fluid in your body for longer. Special Instructions: Take all of your medications as directed and remember to keep all of your doctor's appointments and follow-up as needed. You will need to follow up outpatient with auto garage mechanic Dr. Xiao as discussed for cardiac ablation. Thank you for allowing us to participate in your care, it was truly a pleasure having you for our patient and truly a blessing to get to know you!!! Discharge Disposition: HOME SELF-CARE
--- NOTE | 2022-08-06 13:06 | P.PN ---
Subjective Progress Note Date: 08/06/22 This is Kolby Carlisle NP, I'm dictating on behalf of Dr. Xiao's H&P and A&P. Patient was interviewed and examined. Patient is a pleasant 71-year-old female who was admitted with new T-wave inversions and elevated troponins, with A. fib with RVR. Patient reports today that she's feeling fine. She continues in normal sinus rhythm. Patient has been up walking the halls. She has no complaints of chest pain, palpitations, or shortness of breath. EKG does show inverted T waves on the anterior lateral leads. Patient was started on flecainide 50 mg twice a day yesterday, and we changed her metoprolol to 12.5 mg daily. This appears to be controlling her heart rate well. Blood pressures are controlled. GENERAL: Well-appearing, well-nourished and in no acute distress. NECK: Supple without JVD or thyromegaly. LUNGS: Breath sounds clear to auscultation bilaterally. Respiration equal and unlabored. No wheezes, rales or rhonchi. HEART: Regular rate and rhythm without murmurs, rubs or gallops. S1 and S2 heard. EXTREMITIES: Normal range of motion, no edema. No clubbing or cyanosis. Perip heral pulses intact and strong. VITALS: Temp 97.6, pulse 75, respirations 18, blood pressure 106/61, O2 saturation 95% on room air TELEMETRY: Normal sinus rhythm LABS: TSH 2.45 IMPRESSION: 1. Paroxysmal atrial fibrillation with rapid ventricular rate, currently normal sinus rhythm 2. Elevated troponin, plateaued 3. Dyslipidemia PLAN: Continue flecainide 50 mg daily. This is planned to be short-term. Patient has LVH on echo, recommend advanced imaging to assess left ventricular hypertrophy. Recommend A. fib ablation. Patient should follow-up with cardiology to set up the ablation. Patient may be discharged from a cardiology standpoint. Objective - Vital Signs Vital signs: Vital Signs Temp 97.6 F 08/06/22 08:27 Pulse 75 08/06/22 08:27 Resp 18 08/06/22 08:27 BP 106/61 08/06/22 08:27 Pulse Ox 95 08/06/22 08:27 FiO2 21 08/05/22 20:32 Intake & Output 08/05/22 08/06/22 08/06/22 18:59 06:59 18:59 Intake Total 120 450 Balance 120 450 Intake: Oral 120 450 Other: # Voids 1 1 - Labs CBC & Chem 7: 08/04/22 04:15 08/04/22 04:15
== END 2022-08-06 12:29 | disposition home or self-care (01) ==
LOC: EC 20:22 → 3SCARD 23:34
PROVIDERS: ADMIT Internal Medicine; ATTEND Internal Medicine
DX: R77.8 Other specified abnormalities of plasma proteins (principal); D72.829 Elevated white blood cell count, unspecified; I51.7 Cardiomegaly; E03.9 Hypothyroidism, unspecified; I48.0 Paroxysmal atrial fibrillation; J44.9 Chronic obstructive pulmonary disease, unspecified; F41.9 Anxiety disorder, unspecified; Z86.14 Personal history of Methicillin resistant Staphylococcus aureus infection; Z86.19 Personal history of other infectious and parasitic diseases; Z98.51 Tubal ligation status; Z98.890 Other specified postprocedural states; Z87.891 Personal history of nicotine dependence; Z85.12 Personal history of malignant neoplasm of trachea; Z92.21 Personal history of antineoplastic chemotherapy; Z92.3 Personal history of irradiation; Z80.52 Family history of malignant neoplasm of bladder; Z82.49 Family history of ischemic heart disease and other diseases of the circulatory system; Z79.01 Long term (current) use of anticoagulants; Z79.890 Hormone replacement therapy; Z79.899 Other long term (current) drug therapy; Z88.5 Allergy status to narcotic agent; Z88.0 Allergy status to penicillin
CPT/HCPCS: 96360; 99285; 36415; 94640 ×4; 94760; 93005; 93017; 93306; 80053; 80048; 84443; 83735; 84484 ×2; 85025 ×2; 85610; 85730; 81001; 71046; 78452; G0378 ×3; A9500; J2785

== ENCOUNTER → 2022-08-28 | Outpatient (CLI) | payer MEDICARE ==
[2022-08-28 15:49] LABS: Anion Gap 12.5 mmol/L; Blood Urea Nitrogen 11.6 mg/dL; Carbon Dioxide 24.5 mmol/L; Potassium 4.8 mmol/L
[2022-08-28 16:02] LABS: HCT 40.8 %; MCH 31.2 pg; MCHC 31.9 d/dL; MCV 97.8 FL; Mean Platelet Volume 10.7 FL; NRBC Per 100 WBC 0 X 10*3/uL; Platelet Count 331 X 10*3/uL; RBC 4.17 X 10*6/uL; RDW 14.5 %
== END | disposition home or self-care (01) ==
LOC: LABPAT 09:20
PROVIDERS: ATTEND Internal Medicine Clinical Cardiac Electrophysiology
DX: Z01.812 Encounter for preprocedural laboratory examination (principal); I48.0 Paroxysmal atrial fibrillation
CPT/HCPCS: 36415; 80051; 82565; 84520; 85027

== ENCOUNTER 2022-09-04 12:16 | Day surgery (SDC) | payer MEDICARE ==
[~2022-09-04 12:16] MED LIST: LACTATED RINGERS 1,000 ML IV SCH; SODIUM CHLORIDE 0.9% 1,000 ML IV SCH
[2022-09-04] MEDS ORDERED: SODIUM CHLORIDE 0.9% 1,000 ML IV ONE (13:00)
[2022-09-04] MEDS ORDERED: PHENYLEPHRINE-0.9% NACL SYG 1,000 MCG/10 ML SYRINGE ONE (15:49)
[2022-09-04] MEDS ORDERED: LIDOCAINE 2% INJ 20 MG/ML (2 ML VIAL) ONE (15:49)
[2022-09-04] MEDS ORDERED: ISOPROTERENOL 250 MCG/1.25 ML SYR IV ONE (15:49)
[2022-09-04] MEDS ORDERED: MIDAZOLAM 2 MG/2 ML VIAL ONE (15:49)
[2022-09-04] MEDS ORDERED: SUCCINYLCHOLINE CHLORIDE 200 MG/10 ML VIAL IV ONE (15:49)
[2022-09-04] MEDS ORDERED: PROPOFOL 10 MG/ML 20 ML VIAL IV ONE (15:49)
[2022-09-04] MEDS ORDERED: HEPARIN SODIUM,PORCINE 10,000 UNIT/ML 1 ML VIAL ONE (15:49)
[2022-09-04] MEDS ORDERED: fentaNYL (PF) 50 MCG/ML 2 ML AMP ONE (15:49)
[2022-09-04] MEDS ORDERED: HEPARIN SOD,PORK IN 0.45% NACL 25,000 UNIT in 0.45% NACL 1 250ML.BAG IV ONE (16:18)
[2022-09-04] MEDS ORDERED: LIDOCAINE 1% INJ 10MG/ML (30 ML VIAL-PF) SQ ONE (16:36)
[2022-09-04] MEDS ORDERED: IOPAMIDOL-370 100ML BTL INJ ONE (18:23)
[2022-09-04] MEDS ORDERED: ACETAMINOPHEN IV (For NPO) 1,000 MG in EMPTY BAG 1 BAG IVPB ONE (18:37)
[2022-09-04] MEDS ORDERED: ACETAMINOPHEN TAB 325 MG TAB PO PRN (18:37)
--- NOTE | 2022-09-04 18:50 | P.EPPROC ---
- EP Procedure Note Electrophysiology Procedure Note: PROCEDURE A. fib ablation with pulmonary vein isolation DIAGNOSIS Paroxysmal Atrial fibrillation, symptomatic, with abnormal troponins and demand ischemia RESULT No left atrial appendage mass seen on intracardiac echo Pericardial thickening on intracardiac echo images Successful A. fib ablation/pulmonary vein isolation of all veins using cryo- ablation Complete entrance block in all 4 veins confirmed Transient phrenic nerve paresis with onset of the recovery within a few minutes and complete recovery in less than 20 minutes (RIPV cryoablation) Esophageal deflection YES PROCEDURE DETAILS Written informed consent prior to procedure. Patient brought to the EP lab. General anesthesia given. Heparin administered. A city maintained above 300 seconds Both groins prepped and draped per protocol and venous sheaths placed. Esophagus intubated, circa catheter for temperature monitoring an endoscope for possible esophageal deflection. Phrenic nerve monitoring performed. Esophageal temperature monitoring performed. Esophageal deflection performed if circa catheter overlapping with the balloon or circa temperature less than 27.5C Intracardiac echocardiography performed. Pericardium evaluated. Left atrial appendage evaluated. Left atrium evaluated along with pulmonary veins Transseptal catheterization performed under fluoroscopic guidance and intracardiac echo guidance Cryoablation sheath exchanged, balloon catheter along with achieve catheter placed in the left atrium. Pulmonary veins isolated in the following sequence: Left superior pulmonary vein followed by left inferior pulmonary vein, followed by right inferior pulmonary vein and lastly right superior pulmonary vein. Phrenic nerve stimulation along with capture thresholds within the SVC and right superior pulmonary vein to identify the phrenic nerve proximity to the cryo- balloon. Pulmonary veins isolated and confirmed with entrance and exit block. Phrenic nerve integrity confirmed at the end of the procedure Diagnostic catheters for the high right atrium, His bundle, coronary sinus placed. LA and RA pressures recorded RA pressure: 15/13/14 LA pressure: 39/7/18 Diagnostic EP study with coronary sinus pacing and recording Baseline measurements: Sinus cycle length 773 ms, MN interval 121 ms, QRS 73 ms AH 59, HV 30 ms Sinus node recovery times at 600, 500 and, 400 ms were 1117, 03/27/2000, and 1241 ms. Corresponding corrected sinus node recovery times were normal AV node Wenckebach block 250 ms Parahisian pacing revealed jackie response Transient and mild phrenic nerve paresis noted during RIP V cryoablation at about 230 seconds Recovery began within one to 2 minutes with complete recovery when rechecked 20 minutes Venous sheaths were removed and hemostasis assured with a closure device. Patient extubated and transferred to recovery PROCEDURES PERFORMED Diagnostic EP study CS pacing and recording Left and right transseptal catheterization Catheter the mapping of the tachycardia Intracardiac echocardiography Pulmonary vein isolation with transseptal and comprehensive EPS, [id number] Drug infusion, +[id number]
--- NOTE | 2022-09-04 18:53 | P.HPCAR ---
History of Present Illness This is Dr. Xiao dictating an H/P on this patient The patient was interviewed and examined IMPRESSION / ASSESSMENT: Paroxysmal symptomatic atrial fibrillation with abnormal EKG and abnormal troponins during A. fib with RVR,m No chest discomfort or shortness of breath in the last 3-4 weeks Dyslipidemia Normal stress test PLAN: Stable to proceed with A. fib ablation under general anesthesia Continue ELIQUIS following that HPI Patient denies any chest discomfort in the last one month no syncope no undue shortness of breath She was admitted last month with A. fib with RVR with abnormal T waves and abnormal troponins consistent with demand ischemia Stress test was normal She has no orthopnea PND or palpitations in the last few weeks no loss of consciousness ROS: No fever chills or rigors, no cough, phlegm or expectoration, no nausea, vomiting or diarrhea, no hematuria, dysuria, no musculoskeletal complaints, no strokes or seizures, no skin lesions. EXAMINATION: Afebrile, pulse rate in the 70s blood pressure 141/67 mmHg Breath sounds are clear no rhonchi no crackles Heart sounds S1 and S2 are normal Extremities warm, no edema REVIEW OF LABS, ECG & MEDICAL DATA Medications include rosuvastatin, metoprolol, flecainide, Zetia, Synthroid, ELIQUIS Physical Exam Vitals: Vital Signs Temp Pulse Resp BP Pulse Ox 09/04/22 12:49 97.4 F L 73 16 141/67 98 Intake and Output 09/04/22 09/04/22 09/04/22 06:59 14:59 22:59 Intake Total 50 865 Balance 50 865 Intake: IV 50 865 Other: Weight 47.6 kg Past Medical History Past Medical History: Atrial Fibrillation, Cancer, Chest Pain / Angina, COPD, Hyperlipidemia, Pneumonia, Skin Disorder Additional Past Medical History / Comment(s): Hx tracheal cancer, 10/2015, had radiation and chemo. Dysphagia, hoarseness, bronchitis, hemorrhoids, varicose veins, Ezcema. History of Any Multi-Drug Resistant Organisms: C-DIFF, MRSA Date of last positivie culture/infection: 2015 MDRO Source:: lungs Past Surgical History: Tubal Ligation Additional Past Surgical History / Comment(s): Cancerous polyps removed from throat 11/02/2015, PICC line insertion (to treat MRSA infection) and since removed, mediport placed, colonoscopy with benign polypectomies, sinus surgery. Past Anesthesia/Blood Transfusion Reactions: No Reported Reaction Past Psychological History: Anxiety Smoking Status: Former smoker Past Alcohol Use History: Occasional Additional Past Alcohol Use History / Comment(s): Started smoking at age 19, smoked 1/2-1ppd, quit 10/14/15. Past Drug Use History: None Reported - Past Family History Father Family Medical History: Cancer Additional Family Medical History / Comment(s): Bladder cancer. Mother Family Medical History: Cancer, Congestive Heart Failure (CHF) Sister(s) Family Medical History: Cancer Physical Examination Vital Signs Temp Pulse Resp BP Pulse Ox 09/04/22 12:49 97.4 F L 73 16 141/67 98 Intake and Output 09/04/22 09/04/22 09/04/22 06:59 14:59 22:59 Intake Total 50 865 Balance 50 865 Intake: IV 50 865 Other: Weight 47.6 kg Results Current Medications Generic Name Dose Route Start Last Admin Trade Name Freq PRN Reason Stop Dose Admin Acetaminophen 650 mg 09/04/22 18:37 Acetaminophen Tab 325 Mg Tab PO Q6HR PRN Mild Pain (Scale 1 to 3) Apixaban 5 mg 09/04/22 22:00 Apixaban 5 Mg Tab PO BID DAVE Protocol Atorvastatin Calcium 10 mg 09/04/22 21:00 Atorvastatin 10 Mg Tab PO HS DAVE Ezetimibe 10 mg 09/04/22 21:00 Ezetimibe 10 Mg Tab PO HS DAVE Flecainide Acetate 50 mg 09/04/22 21:00 Flecainide 50 Mg Tab PO Q12HR DAVE Levothyroxine Sodium 75 mcg 09/05/22 06:30 Levothyroxine 75 Mcg Tab PO DAILY@0630 DAVE Metoprolol Succinate 12.5 mg 09/04/22 21:00 Metoprolol Succinate (Er) 25 Mg Tab.Er.24h PO BID DAVE Sodium Chloride 12 ml 09/04/22 18:37 Sodium Chloride 0.9% Flush 10 Ml Syringe IV Q12HR PRN Line Flush Intake and Output 09/04/22 09/04/22 09/04/22 06:59 14:59 22:59 Intake Total 50 865 Balance 50 865 Intake: IV 50 865 Other: Weight 47.6 kg Patient Weight 09/05/22 06:59 Weight 47.6 kg
[2022-09-04] MEDS ORDERED: EZETIMIBE 10 MG TAB PO SCH (21:00)
[2022-09-04] MEDS ORDERED: ATORVASTATIN 10 MG TAB PO SCH (21:00)
[2022-09-04] MEDS: FLECAINIDE 50 MG TAB PO SCH (21:14)
[2022-09-04] MEDS: APIXABAN 5 MG TAB PO SCH (21:14)
[2022-09-04] MEDS: METOPROLOL SUCCINATE (ER) 25 MG TAB.ER.24H PO SCH (21:14)
[2022-09-05] MEDS ORDERED: LEVOTHYROXINE 75 MCG TAB PO SCH (06:30)
[2022-09-05 07:34] VITALS: RESP 16
[2022-09-05] MEDS: APIXABAN 5 MG TAB PO SCH (08:25)
[2022-09-05] MEDS: METOPROLOL SUCCINATE (ER) 25 MG TAB.ER.24H PO SCH (08:25)
[2022-09-05] MEDS: FLECAINIDE 50 MG TAB PO SCH (08:25)
[2022-09-05] MEDS ORDERED: IPRATROPIUM-ALBUTEROL 3 ML NEB INHALATION STA (09:16)
[2022-09-05] MEDS ORDERED: FUROSEMIDE 20 MG TAB PO STA (09:17)
[2022-09-05 12:10] VITALS: BMI 18.6
--- NOTE | 2022-09-05 13:40 | P.DS ---
Providers Attending physician: Florencio Xiao Primary care physician: Jennifer Mckinley DO Hospital Course: Patient is doing well. No chest discomfort dizziness or lightheadedness Mild sore throat On examination her breath sounds are equal bilaterally but bilateral rhonchi appreciated She is not short of breath at rest Blood pressure 111/62 mmHg pulse rate in the 70s afebrile Heart sounds are regular and normal Abdomen soft Groins of healed well no hematoma Impression Paroxysmal atrial fibrillation Successful PVI No inducible atrial fibrillation on Isuprel thereafter COPD Plan Incentive spirometry, respiratory therapy today Continue anticoagulation as well as metoprolol and flecainide Discharge home later on after 4 PM Follow-up of Dr. Daniel in a week Patient Condition at Discharge: Stable Plan - Discharge Summary Discharge Rx Participant: No New Discharge Prescriptions: No Action Levothyroxine Sodium [Synthroid] 75 mcg PO DAILY Ezetimibe [Zetia] 10 mg PO HS Apixaban [Eliquis] 5 mg PO BID Flecainide [Tambocor] 50 mg PO Q12HR 30 Days #60 tab Fluticasone Propion/Salmeterol [Fluticasone-Salmeterol 250-50] 1 puff INHALATION BID Rosuvastatin Calcium 5 mg PO HS Metoprolol Succinate (ER) [Toprol XL] 12.5 mg PO BID 60 Days #60 tab Multivitamin/Iron/Folic Acid [Centrum Adults Tablet] 1 each PO DAILY Discharge Medication List Apixaban [Eliquis] 5 mg PO BID 01/20/21 [History] Ezetimibe [Zetia] 10 mg PO HS 01/20/21 [History] Fluticasone Propion/Salmeterol [Fluticasone-Salmeterol 250-50] 1 puff INHALATION BID 01/20/21 [History] Levothyroxine Sodium [Synthroid] 75 mcg PO DAILY 01/20/21 [History] Rosuvastatin Calcium 5 mg PO HS 01/20/21 [History] Flecainide [Tambocor] 50 mg PO Q12HR 30 Days #60 tab 08/06/22 [Rx] Metoprolol Succinate (ER) [Toprol XL] 12.5 mg PO BID 60 Days #60 tab 08/06/22 [Rx] Multivitamin/Iron/Folic Acid [Centrum Adults Tablet] 1 each PO DAILY 08/30/22 [History] Follow up Appointment(s)/Referral(s): Tre Daniel MD [STAFF PHYSICIAN] - 1 Week (Keep appointment previously made on September 19 @11am with OSWALDO Brown)
[2022-09-05 14:22] VITALS: BP 123/68; PULSE 78; TEMP 98.5
== END 2022-09-05 16:07 | disposition home or self-care (01) ==
LOC: CATHEP 12:16 → 6NMEDSUR 18:29 → CATHEP 09-05 16:07
PROVIDERS: ATTEND Internal Medicine Clinical Cardiac Electrophysiology
DX: I48.0 Paroxysmal atrial fibrillation (principal); I44.2 Atrioventricular block, complete; I25.9 Chronic ischemic heart disease, unspecified; E78.5 Hyperlipidemia, unspecified; Z79.01 Long term (current) use of anticoagulants; Z79.890 Hormone replacement therapy; Z79.899 Other long term (current) drug therapy; J44.9 Chronic obstructive pulmonary disease, unspecified; Z86.14 Personal history of Methicillin resistant Staphylococcus aureus infection; Z85.12 Personal history of malignant neoplasm of trachea; Z92.21 Personal history of antineoplastic chemotherapy; Z92.3 Personal history of irradiation; I83.90 Asymptomatic varicose veins of unspecified lower extremity; F41.9 Anxiety disorder, unspecified; Z87.891 Personal history of nicotine dependence; F10.20 Alcohol dependence, uncomplicated; Z82.49 Family history of ischemic heart disease and other diseases of the circulatory system
CPT/HCPCS: 94640; 93656; 93623; 86900; 86901; 86850; C1894 ×2; C1769 ×3; C1760; C1730 ×2; C1759; C1893; C1733; C1766; J2250; J0330; J1644 ×2; J2001 ×2; J3010; J0131; J2370; J2704; Q9967

== ENCOUNTER → 2023-02-06 | Outpatient (CLI) | payer MEDICARE ==
[2023-02-06 15:42] LABS: ALT 20 U/L (8-44); AST 23 U/L (13-35); Albumin 4.4 g/dL (3.8-4.9); Albumin/Globulin Ratio 1.69 Ratio (1.60-3.17); Alkaline Phosphatase 86 U/L (41-126); BUN/Creat Ratio 18.38 Ratio (12.00-20.00); Blood Urea Nitrogen 14.7 mg/dL (9.0-27.0); Calcium 9.8 mg/dL (8.7-10.3); Carbon Dioxide 24.1 mmol/L (21.6-31.8); Chloride 101 mmol/L (96-109); Chol/HDL Ratio 1.77 Ratio; Globulin 2.6 g/dL (1.6-3.3); Glucose 83 mg/dL (70-110); LDL Cholesterol,Calculated 41.1 mg/dL (0.0-131.0); Sodium 136 mmol/L (135-145); Total Bilirubin 0.3 mg/dL (0.3-1.2)
== END | disposition home or self-care (01) ==
LOC: LABWHC1 08:09
PROVIDERS: ATTEND Internal Medicine Interventional Cardiology
DX: E78.2 Mixed hyperlipidemia (principal); I48.0 Paroxysmal atrial fibrillation
CPT/HCPCS: 36415; 80053; 80061

== ENCOUNTER → 2023-08-16 | Outpatient (CLI) | payer MEDICARE ==
[2023-08-16 15:07] LABS: ALT 28 U/L (8-44); AST 35 U/L (13-35); Chol/HDL Ratio 1.76 Ratio; LDL Cholesterol,Calculated 52.9 mg/dL (0.0-131.0); VLDL Calculation 19.42 mg/dL (5.00-40.00)
== END | disposition home or self-care (01) ==
LOC: LABWHC1 07:42
PROVIDERS: ATTEND Internal Medicine Interventional Cardiology
DX: E78.2 Mixed hyperlipidemia (principal)
CPT/HCPCS: 36415; 80061; 84450; 84460

== ENCOUNTER → 2024-01-25 | Outpatient (CLI) | payer MEDICARE ==
[2024-01-25 16:58] LABS: ALT 14 U/L (8-44); AST 22 U/L (13-35); Albumin 4.7 g/dL (3.8-4.9); Albumin/Globulin Ratio 1.96 Ratio (1.60-3.17); Alkaline Phosphatase 85 U/L (41-126); BUN/Creat Ratio 14.78 Ratio (12.00-20.00); Blood Urea Nitrogen 13.3 mg/dL (9.0-27.0); Carbon Dioxide 23.7 mmol/L (21.6-31.8); Chloride 99 mmol/L (96-109); Chol/HDL Ratio 1.92 Ratio; Globulin 2.4 g/dL (1.6-3.3); Glucose 87 mg/dL (70-110); LDL Cholesterol,Calculated 58.1 mg/dL (0.0-131.0); Potassium 5.3 mmol/L (3.5-5.5); Sodium 134 mmol/L (135-145); Total Bilirubin 0.3 mg/dL (0.3-1.2); Total Protein 7.1 g/dL (6.2-8.2)
== END | disposition home or self-care (01) ==
LOC: LABWHC1 08:17
PROVIDERS: ATTEND Nurse Practitioner Adult Health
DX: I48.0 Paroxysmal atrial fibrillation (principal); E78.2 Mixed hyperlipidemia
CPT/HCPCS: 36415; 80053; 80061

== ENCOUNTER → 2024-07-30 | Outpatient (CLI) | payer MEDICARE ==
[2024-07-30 15:52] LABS: ALT 14 U/L (8-44); AST 20 U/L (13-35); Chol/HDL Ratio 1.83 Ratio; LDL Cholesterol,Calculated 45.2 mg/dL (0.0-131.0)
== END | disposition home or self-care (01) ==
LOC: LABWHC1 07:59
PROVIDERS: ATTEND Internal Medicine Interventional Cardiology
DX: E78.2 Mixed hyperlipidemia (principal)
CPT/HCPCS: 36415; 80061; 84450; 84460

== ENCOUNTER 2024-09-29 08:32 | Emergency (ER) | payer MEDICARE ==
[2024-09-29 08:39] VITALS: TEMP 97.9
[2024-09-29] MEDS: SODIUM CHLORIDE 0.9% 1,000 ML IV ONE (09:14)
[2024-09-29 09:17] LABS: Basophils # (A) 0.06 10*3/uL (0.00-0.10); Basophils % (A) 0.6 %; Eosinophils # (A) 0.05 10*3/uL (0.04-0.35); Eosinophils % (A) 0.5 %; HCT 37.9 % (37.2-46.3); HGB 13.4 g/dL (12.0-15.0); Lymphocytes # (A) 1.29 10*3/uL (0.90-5.00); Lymphocytes % (A) 13.6 %; MCH 32.5 pg (27.0-32.0); MCHC 35.4 g/dL (32.0-37.0); MCV 92.0 fL (80.0-97.0); Monocytes # (A) 0.58 10*3/uL (0.20-1.00); Monocytes % (A) 6.1 %; Neutrophils # (A) 7.43 10*3/uL (1.80-7.70); Neutrophils % (A) 78.6 %; Platelet Count 310 10*3/uL (140-440); RBC 4.12 10*6/uL (4.10-5.20); RDW 12.4 % (11.5-14.5); WBC 9.47 10*3/uL (4.50-10.00)
[2024-09-29 09:29] LABS: ALT 12 U/L (4-34); African American GFR (CKD) >90 (>60 ml/min/1.73 sqM); Albumin 4.7 g/dL (3.5-5.0); Anion Gap 12 mmol/L; Blood Urea Nitrogen 10 mg/dL (7-17); Calcium 9.8 mg/dL (8.4-10.2); Carbon Dioxide 23 mmol/L (22-30); Chloride 95 mmol/L (98-107); Glucose 120 mg/dL (74-99); Non-African American GFR(CKD) 88 (>60 ml/min/1.73 sqM); Sodium 130 mmol/L (137-145); Total Protein 7.8 g/dL (6.3-8.2)
[2024-09-29 09:33] LABS: AST 22 U/L (14-36); Alkaline Phosphatase 125 U/L (38-126); Magnesium 1.9 mg/dL (1.6-2.3); Potassium 4.7 mmol/L (3.5-5.1)
--- NOTE | 2024-09-29 09:42 | XR ---
EXAMINATION TYPE: XR chest 2V DATE OF EXAM: 09/29/2024 9:33 AM COMPARISON: Chest radiographs from 08/03/2022. CLINICAL INDICATION: Female, 73 years old with history of dysrhythmia; TECHNIQUE: XR chest 2V Frontal and lateral views of the chest. FINDINGS: Lungs/Pleura: There is flattening of the diaphragm with increased lucency of the lungs. No evidence o f pneumothorax, pleural effusion or focal consolidation. Pulmonary vascularity: Unremarkable. Heart/mediastinum: Cardiomediastinal silhouette is unremarkable. Musculoskeletal: No acute osseous pathology. IMPRESSION: 1. No acute cardiopulmonary disease process. 2. COPD changes. [facility], , 09/29/2024 9:39 AM
[2024-09-29 09:52] LABS: INR 1.0 (<1.2); Partial Thromboplastin Time 25.7 sec (22.0-30.0); Prothrombin Time 10.6 sec (10.0-12.5)
--- NOTE | 2024-09-29 11:03 | ED ---
Arrhythmia/Palpitations HPI - General Chief Complaint: Arrhythmia/Palpitations Stated Complaint: Shortness of breath/Fast heartrate Time Seen by Provider: 09/29/24 08:40 Source: patient Mode of arrival: ambulatory Limitations: no limitations - History of Present Illness Initial Comments: 73-year-old female presents emergency department for palpitations. States they have been going on for the past couple of days. She does have a history of A- fib and was concerned she was in A-fib. She denies any chest pain. Does admit to mild shortness of breath. Patient does take Eliquis. Denies any missed doses. No calf pain or swelling. No history of DVT or PE. No fevers, chills or cough. Does admit to diarrhea. States that the diarrhea has significantly improved and she was only having 1-2 episodes per day. No abdominal pain. Palpitations are worse upon exertion. No other alleviating, precipitating or modifying factors - Related Data Home Medications Medication Instructions Recorded Confirmed Apixaban [Eliquis] 5 mg PO BID 01/20/21 08/30/22 Ezetimibe [Zetia] 10 mg PO HS 01/20/21 09/04/22 Fluticasone Propion/Salmeterol 1 puff INHALATION BID 01/20/21 08/30/22 [Fluticasone-Salmeterol 250-50] Levothyroxine Sodium [Synthroid] 75 mcg PO DAILY 01/20/21 08/30/22 Rosuvastatin Calcium 5 mg PO HS 01/20/21 09/04/22 Multivitamin/Iron/Folic Acid 1 each PO DAILY 08/30/22 09/04/22 [Centrum Adults Tablet] Previous Rx's Medication Instructions Recorded Flecainide [Tambocor] 50 mg PO Q12HR 30 Days #60 tab 08/06/22 Metoprolol Succinate (ER) [Toprol 12.5 mg PO BID 60 Days #60 tab 08/06/22 XL] Allergies Allergy/AdvReac Type Severity Reaction Status Date / Time Penicillins Allergy Nausea & Verified 09/29/24 08:39 Vomiting codeine AdvReac Nausea & Verified 09/29/24 08:39 Vomiting Review of Systems ROS Statement: Those systems with pertinent positive or pertinent negative responses have been documented in the HPI. ROS Other: All systems not noted in ROS Statement are negative. Past Medical History Past Medical History: Atrial Fibrillation, Cancer, Chest Pain / Angina, COPD, Hyperlipidemia, Pneumonia, Skin Disorder Additional Past Medical History / Comment(s): Hx tracheal cancer, 10/2015, had radiation and chemo. Dysphagia, hoarseness, bronchitis, hemorrhoids, varicose veins, Ezcema. History of Any Multi-Drug Resistant Organisms: C-DIFF, MRSA Date of last positivie culture/infection: 2015 MDRO Source:: lungs Past Surgical History: Tubal Ligation Additional Past Surgical History / Comment(s): Cancerous polyps removed from throat 11/02/2015, PICC line insertion (to treat MRSA infection) and since removed, mediport placed, colonoscopy with benign polypectomies, sinus surgery. Past Anesthesia/Blood Transfusion Reactions: No Reported Reaction Past Psychological History: Anxiety Smoking Status: Former smoker Past Alcohol Use History: Occasional Past Drug Use History: None Reported - Past Family History Father Family Medical History: Cancer Additional Family Medical History / Comment(s): Bladder cancer. Mother Family Medical History: Cancer, Congestive Heart Failure (CHF) Sister(s) Family Medical History: Cancer General Exam Limitations: no limitations General appearance: alert, in no apparent distress Head exam: Present: atraumatic, normocephalic, normal inspection Eye exam: Present: normal appearance, PERRL, EOMI. Absent: scleral icterus, conjunctival injection, periorbital swelling ENT exam: Present: normal exam, mucous membranes moist Neck exam: Present: normal inspection. Absent: tenderness, meningismus, lymphadenopathy Respiratory exam: Present: normal lung sounds bilaterally. Absent: respiratory distress, wheezes, rales, rhonchi, stridor Cardiovascular Exam: Present: normal rhythm, tachycardia, normal heart sounds. Absent: systolic murmur, diastolic murmur, rubs, gallop, clicks GI/Abdominal exam: Present: soft, normal bowel sounds. Absent: distended, tenderness, guarding, rebound, rigid Extremities exam: Present: normal inspection, full ROM, normal capillary refill. Absent: tenderness, pedal edema, joint swelling, calf tenderness Back exam: Present: normal inspection Neurological exam: Present: alert, oriented X3, CN II-XII intact Psychiatric exam: Present: normal affect, normal mood Skin exam: Present: warm, dry, intact, normal color. Absent: rash Course Vital Signs 0709/29/24 09/29/24 08:37 10:08 12:13 Temperature 97.9 F Pulse Rate 103 H 78 81 Respiratory 20 18 16 Rate Blood Pressure 137/76 143/80 147/76 O2 Sat by Pulse 94 L 96 97 Oximetry Medical Decision Making - Medical Decision Making Was pt. sent in by a medical professional or institution (, [facility]ANNA, [employer]ING [employer], urgent care, hospital, or assisted...) When possible be specific @ -No Did you speak to anyone other than the patient for history (EMS, parent, family, police, friend...)? What history was obtained from this source @ -Spoke with for history Did you review nursing and triage notes (agree or disagree)? Why? @ -I reviewed and agree with nursing and triage notes Were old charts reviewed (outside hosp., previous admission, EMS record, old EKG, old radiological studies, urgent care reports/EKG's, assisted records)? Report findings @ -No old charts were reviewed Differential Diagnosis (chest pain, altered mental status, abdominal pain women, abdominal pain men, vaginal bleeding, weakness, fever, dyspnea, syncope, headache, dizziness, GI bleed, back pain, seizure, CVA, palpatations, mental health, musculoskeletal)? @ -A-fib EKG interpreted by me (3pts min.). @ -Yes which demonstrates sinus rhythm with rate of 96. SD interval is 131. QRS 76. QTc of 375. ST depression 2, 3, aVF as well as V3 through V6. ST depr ession seen on previous EKGs X-rays interpreted by me (1pt min.). @ -Yes which demonstrates no acute process CT interpreted by me (1pt min.). @ -None done U/S interpreted by me (1pt. min.). @ -None done What testing was considered but not performed or refused? (CT, X-rays, U/S, labs)? Why? @ -None What meds were considered but not given or refused? Why? @ -None Did you discuss the management of the patient with other professionals (professionals i.e. DEANNA Lucia, [employer]ING G[employer]IVER, lab, RT, psych nurse, social insurance administrator, psychiatric orderly, teacher, youth probation officer, telephonic nurse case manager)? Give summary @ -No Was smoking cessation discussed for >3mins.? @ -No Was critical care preformed (if so, how long)? @ -No Were there social determinants of health that impacted care today? How? (Homelessness, low income, unemployed, alcoholism, drug addiction, transportation, low edu. Level, literacy, decrease access to med. care, custodial, rehab)? @ -No Was there de-escalation of care discussed even if they declined (Discuss DNR or withdrawal of care, Hospice)? DNR status @ -No What co-morbidities impacted this encounter? (DM, HTN, Smoking, COPD, CAD, Cancer, CVA, ARF, Chemo, Hep., AIDS, mental health diagnosis, sleep apnea, morbid obesity)? @ -A-fib Was patient admitted / discharged? Hospital course, mention meds given and rout e, prescriptions, significant lab abnormalities, going to OR and other pertinent info. @ -Upon arrival patient seen and evaluated in room 28. Thorough history and physical exam was performed. IV access was established and laboratory studies are conducted. Chest x-ray was performed. Patient cannot provide a stool sample at this time. She was given intravenous fluids and heart rate does improve. She gets up and ambulates and states she feels much better and wants to go home. I recommend that she follow-up with her doctor in 2 to 4 days and return for any new or worsening symptoms Undiagnosed new problem with uncertain prognosis? @ -No Drug Therapy requiring intensive monitoring for toxicity (Heparin, Nitro, Insulin, Cardizem)? @ -No Were any procedures done? @ -No Diagnosis/symptom? @ -Acute palpitations, history of A-fib Acute, or Chronic, or Acute on Chronic? @ -Acute Uncomplicated (without systemic symptoms) or Complicated (systemic symptoms)? @ -Complicated Side effects of treatment? @ -No Exacerbation, Progression, or Severe Exacerbation? @ -No Poses a threat to life or bodily function? How? (Chest pain, USA, ID, pneumonia, PE, COPD, DKA, ARF, appy, cholecystitis, CVA, Diverticulitis, Homicidal, Suicidal, threat to staff... and all critical care pts) @ -No - Lab Data Result diagrams: 09/29/24 09:10 09/29/24 09:10 Lab Results 09/29/24 09/29/24 09/29/24 Range/Units 09:10 09:10 09:10 WBC 9.47 (4.50-10.00) 10*3/uL RBC 4.12 (4.10-5.20) 10*6/uL Hgb 13.4 (12.0-15.0) g/dL Hct 37.9 (37.2-46.3) % MCV 92.0 (80.0-97.0) fL MCH 32.5 H (27.0-32.0) pg MCHC 35.4 (32.0-37.0) g/dL Plt Count 310 (140-440) 10*3/uL MPV 9.4 L (9.5-12.2) fL Immature Gran % (Auto) 0.6 % Neutrophils % 78.6 % Lymphocytes % 13.6 % Monocytes % 6.1 % Eosinophils % 0.5 % Basophils % 0.6 % Immature Gran # 0.06 H (0.00-0.04) 10*3/uL Neutrophils # 7.43 (1.80-7.70) 10*3/uL Lymphocytes # 1.29 (0.90-5.00) 10*3/uL Monocytes # 0.58 (0.20-1.00) 10*3/uL Eosinophils # 0.05 (0.04-0.35) 10*3/uL Basophils # 0.06 (0.00-0.10) 10*3/uL PT 10.6 (10.0-12.5) sec INR 1.0 (<1.2) APTT 25.7 (22.0-30.0) sec D-Dimer 0.48 (<0.60) mg/L FEU Sodium 130 L (137-145) mmol/L Potassium 4.7 (3.5-5.1) mmol/L Chloride 95 L (98-107) mmol/L Carbon Dioxide 23 (22-30) mmol/L Anion Gap 12 mmol/L BUN 10 (7-17) mg/dL Creatinine 0.64 (0.52-1.04) mg/dL Est GFR (CKD-EPI)AfAm >90 (>60 ml/min/1.73 sqM) Est GFR (CKD-EPI)NonAf 88 (>60 ml/min/1.73 sqM) Glucose 120 H (74-99) mg/dL Calcium 9.8 (8.4-10.2) mg/dL Magnesium 1.9 (1.6-2.3) mg/dL Total Bilirubin 0.8 (0.2-1.3) mg/dL AST 22 (14-36) U/L ALT 12 (4-34) U/L Alkaline Phosphatase 125 (38-126) U/L Troponin I (0.000-0.034) ng/mL Total Protein 7.8 (6.3-8.2) g/dL Albumin 4.7 (3.5-5.0) g/dL TSH 4.000 (0.465-4.680) mIU/L 09/29/24 Range/Units 09:10 WBC (4.50-10.00) 10*3/uL RBC (4.10-5.20) 10*6/uL Hgb (12.0-15.0) g/dL Hct (37.2-46.3) % MCV (80.0-97.0) fL MCH (27.0-32.0) pg MCHC (32.0-37.0) g/dL Plt Count (140-440) 10*3/uL MPV (9.5-12.2) fL Immature Gran % (Auto) % Neutrophils % % Lymphocytes % % Monocytes % % Eosinophils % % Basophils % % Immature Gran # (0.00-0.04) 10*3/uL Neutrophils # (1.80-7.70) 10*3/uL Lymphocytes # (0.90-5.00) 10*3/uL Monocytes # (0.20-1.00) 10*3/uL Eosinophils # (0.04-0.35) 10*3/uL Basophils # (0.00-0.10) 10*3/uL PT (10.0-12.5) sec INR (<1.2) APTT (22.0-30.0) sec D-Dimer (<0.60) mg/L FEU Sodium (137-145) mmol/L Potassium (3.5-5.1) mmol/L Chloride (98-107) mmol/L Carbon Dioxide (22-30) mmol/L Anion Gap mmol/L BUN (7-17) mg/dL Creatinine (0.52-1.04) mg/dL Est GFR (CKD-EPI)AfAm (>60 ml/min/1.73 sqM) Est GFR (CKD-EPI)NonAf (>60 ml/min/1.73 sqM) Glucose (74-99) mg/dL Calcium (8.4-10.2) mg/dL Magnesium (1.6-2.3) mg/dL Total Bilirubin (0.2-1.3) mg/dL AST (14-36) U/L ALT (4-34) U/L Alkaline Phosphatase (38-126) U/L Troponin I <0.012 (0.000-0.034) ng/mL Total Protein (6.3-8.2) g/dL Albumin (3.5-5.0) g/dL TSH (0.465-4.680) mIU/L Disposition Clinical Impression: Palpitations, Hyponatremia Disposition: HOME SELF-CARE Condition: Stable Instructions (If sedation given, give patient instructions): Heart Palpitations (ED) Additional Instructions: Please follow-up with your doctor for reevaluation of your symptoms. Return to the emergency department for any new or worsening symptoms Is patient prescribed a controlled substance at d/c from ED?: No Referrals: Jennifer Mckinley DO [Primary Care Provider] - 1-2 days Time of Disposition: 11:02
[2024-09-29 12:14] VITALS: BP 147/76; PULSE 81; RESP 16
== END 2024-09-29 12:14 | disposition home or self-care (01) ==
LOC: EC 08:32
DX: R00.2 Palpitations (principal); E87.1 Hypo-osmolality and hyponatremia; I48.91 Unspecified atrial fibrillation; Z88.0 Allergy status to penicillin; Z88.5 Allergy status to narcotic agent; Z87.891 Personal history of nicotine dependence
CPT/HCPCS: 36415; 71046; 80053; 83735; 84443; 84484; 85025; 85379; 85610; 85730; 93005; 96360; 96361; 99285